=== PATIENT | female | born 1935 | race Caucasian/White ===

== ENCOUNTER 2018-08-05 09:32 | Inpatient (IN) | payer MEDICARE ==
[2018-08-05 10:08] LABS: Hemoglobin 10.1 g/dL (12.0-16.0); Mean Corpuscular HGB CONC 29.3 g/dL (32.0-36.0); Mean Corpuscular Volume 71.7 fL (78.0-98.0); Mean Platelet Volume 7.1 fL (7.4-10.4); Platelet Count 460 thou/uL (130-400); RBC Distribution Width 15.3 % (11.5-14.5); Red Blood Cell (RBC) Count 4.81 mill/uL (4.20-5.40); White Blood Cell (WBC) Count 39.1 thou/uL (4.8-10.8)
[2018-08-05 10:26] LABS: ALT (SGPT) 15 U/L (8-55); AST (SGOT) 33 U/L (5-34); Albumin 2.3 g/dL (3.4-4.8); Alkaline Phosphatase 139 U/L (40-150); Anion Gap 22 mmol/L (10-20); BUN (Urea Nitrogen) 28 mg/dL (9.8-20.1); Bilirubin, Total 0.6 mg/dL (0.2-1.2); Calc. Creatinine Clearance 0 mL/min (70-130); Calcium 7.8 mg/dL (7.8-10.44); Carbon Dioxide 12 mmol/L (23-31); Chloride 95 mmol/L (98-107); Estimated GFR-MDRD 69; Globulin 2.5 g/dL (2.4-3.5); Glucose 118 mg/dL (83-110); Potassium 4.4 mmol/L (3.5-5.1); Protein, Total 4.8 g/dL (6.0-8.3); Sodium 125 mmol/L (136-145)
--- NOTE | 2018-08-05 10:32 | CT ---
CT BRAIN: History: Level II stroke, fall yesterday. Patient reports weakness. Technique: Noncontrast enhanced CT images of the brain obtained. Brain and bone windows obtained. FINDINGS: There is mild cortical atrophy and deep white matter ischemic changes. No evidence of acute intracran ial masses, hemorrhages, strokes or contusions seen. IMPRESSION: Mild cortical atrophy and deep white matter ischemic changes. No acute intracranial abnormalities see n. Findings called to Dr. Queen at 9:51 a.m. on 08-05-18. Code CR POS: MELANIE
[2018-08-05 10:45] LABS: Band 28 % (5-11); Burr Cells MODERATE= 6-15 cells (100X) (0-1/hpf); Hypochromia MODERATE=16-30 cells (100X) (0-5/hpf); MDiff Complete? YES; Metamyelocyte 3 % (0-0); Microcytosis MODERATE=15-30 cells (100X) (0-5/hpf); Monocytes 6 % (0-10); Neutrophil 62 % (42-75); Platelet Morphology Comment Appears Increased; Polychromasia SLIGHT = 2-3 cells (100X) (0-2/hpf); Reactive Lymphocytes 1 % (0-10); Toxic Granulation SLIGHT; Vacuoles SLIGHT
[2018-08-05] MEDS ORDERED: Aspirin Chewable 81 MG TAB ONE (11:00)
[2018-08-05] MEDS ORDERED: cefTRIAXone\\ROCEPHIN 2 GM VIAL ONE (11:00)
[2018-08-05 11:02] LABS: CKMB 10.1 ng/mL (0-6.6)
--- NOTE | 2018-08-05 11:06 | RAD ---
CHEST 1 VIEW: Date: 08/05/18 HISTORY: Altered mental status. Slurred speech. Dyspnea. FINDINGS: No comparison. Cardiac silhouette is magnified by projection. Pulmonary vasculature upper limits of normal. Opacity at the left base has the appearance of atelectasis and pleural fluid. Mediastinum is midline with aor tic calcification. Right lung is well inflated. No evidence of pneumothorax. groundwater monitoring technician leads ov erlie the chest. IMPRESSION: 1. Left basilar atelectasis and left pleural fluid. Cause is not evident. Please consider continued radiographic follow-up. 2. Atherosclerosis. POS: [facility]
[2018-08-05 11:27] LABS: Bilirubin Small (Negative); Blood, Urine Negative (Negative); Clarity CLOUDY (Clear); Glucose, Urine (Dipstick) Negative (Negative); Leukocyte Small (Negative); Nitrite Negative (Negative); Protein, Urine (Dipstick) 30 mg/dL (Neg-Trace); Specific Gravity, Urine 1.027 (1.002-1.036)
[2018-08-05 11:33] LABS: Pathc Cast-AUWi Flag 11.92 (0-2.49); Yeast-AUWi Flag 47.1 (0-25.0)
[2018-08-05 11:43] LABS: Bacteria/HPF 1+ HPF (None Seen); Hyaline Casts/LPF 0-3 HYALINE CAST LPF (0-3 Hyaline); Manual Microscopic Reviewed? No Path Casts Seen; RBC/HPF None Seen HPF (0-3); Renal Epithelial None Seen HPF (0-3); Transitional Epithelial NONE SEEN HPF (0-3); Yeast-All Forms None Seen HPF (None Seen)
[2018-08-05] MEDS ORDERED: Azithromycin 500 MG VIAL ONE (12:33)
--- NOTE | 2018-08-05 14:12 | HP ---
PRIMARY CARE PHYSICIAN: Macy Rodgers MD REASON FOR ADMISSION: Acute encephalopathy due to sepsis, sepsis with acute organ dysfunction, pneumonia/urinary tract infection. HISTORY OF PRESENT ILLNESS: An 83-year-old female, who has underlying history of gastroesophageal reflux disease, dyslipidemia, anxiety, and depression, who lives at home by herself. She is able to do all her daily activities of life by herself as well as she drives. She went to mu-ism last Thursday and after that, the patient is gradually becoming sick. The patient's family member reports that on Thursday they noticed that she was very slow and lethargic, which was pretty much unusual, but she did not have any other complaints. She does have chronic intermittent urinary incontinence, but she did not have any classic UTI symptoms including dysuria, hematuria, or more frequency. She did not have any flu-like illness including myalgia, runny nose, sore throat. She did not have any chest pain, pleurisy, cough, but family member noticed that she was more short of breath lately. Her condition was day by day going down. She did not have any fever or chills at home. This morning, the patient fell down and she was not able to get out from the floor. She was extremely weak and fatigued and that is why paramedics was called and the patient was brought to the emergency room. The patient appeared altered and stroke alert was initially initiated. In the emergency room, the patient had routine blood test with CT of brain, which showed age-related cortical atrophy without any acute process and chest x-ray showed left basilar infiltration versus atelectasis. Routine blood test showed leukocytosis with left shift with bandemia, elevated troponin, and lactic acidosis as well as hyponatremia. The patient does not have any clue about what is going on, but family member including two daughters, who are power of research attorney present at bedside in the emergency room, who provided most of the history. The patient's family member also reports that they noticed slurred speech as well as some facial droop. She was having difficulty walking. Paramedics noticed that this patient was tachycardic, relatively hypotensive. In the emergency room, lowest blood pressure was in 80s one time that responded to IV fluid. The patient has received appropriate antibiotic therapy and subsequently we decided to admit to [facility] for close monitoring and further treatment. The patient's troponin was elevated, but EKG was nonspecific and the patient was not having any angina or chest pain. REVIEW OF SYSTEMS: CONSTITUTIONAL: Negative for weight loss or gain, ability to conduct usual activities. SKIN: Negative for rash, itching. EYES: Negative for double vision, pain. ENT/MOUTH: Negative for nose bleeding, neck stiffness, pain, tenderness. CARDIOVASCULAR: Negative for palpitations, dyspnea on exertion, orthopnea. RESPIRATORY: Negative for shortness of breath, wheezing, cough, hemoptysis, fever or night sweats. GASTROINTESTINAL: Negative for poor appetite, abdominal pain, heartburn, nausea, vomiting, constipation, or diarrhea. GENITOURINARY: Negative for urgency, frequency, dysuria, nocturia. MUSCULOSKELETAL: Negative for pain, swelling. NEUROLOGIC/PSYCHIATRIC: Negative for anxiety, depression. ALLERGY/IMMUNOLOGIC: Negative for skin rash, bleeding tendency. Please see my HPI for pertinent positive and negative. All other review of systems reviewed and negative except as mentioned in HPI. EMERGENCY ROOM COURSE: So far, the patient has received 2 L of fluid aspirin 324 mg, Rocephin, vancomycin and azithromycin. PAST MEDICAL HISTORY: Gastroesophageal reflux disease, dyslipidemia, diastolic dysfunction, urinary incontinence. PAST SURGICAL HISTORY: Cholecystectomy tonsillectomy. PAST PSYCHIATRIC HISTORY: Anxiety and depression. SOCIAL HISTORY: The patient is , lives at home by herself. She is able to ambulate by herself. She is using cane. She is still driving. She does not have any tobacco, alcohol, or illicit drug abuse. FAMILY HISTORY: No family history of coronary artery disease, stroke, or cancer. ALLERGIES: SULFA DRUGS. CURRENT HOME MEDICATION: 1. Plavix 75 mg daily. 2. Ranitidine 150 mg b.i.d. 3. Lovastatin 20 mg at bedtime. 4. Zoloft 50 mg p.o. daily. PHYSICAL EXAMINATION: VITAL SIGNS: On arrival, blood pressure 109/64, pulse 120, respiratory rate 22, temperature 97.8, and saturation 97% on room air. Weight 63.5 kg. GENERAL: The patient is currently alert, awake, appears weak. No obvious acute distress. HEENT: Head; normocephalic, atraumatic. Eyes; pupils round, reactive to light. Extraocular muscle intact. ENT; oropharynx within normal limits. Moist mucous membranes. No oral lesion. No pharyngeal erythema. No exudate. NECK: Supple. No JVD. No thyromegaly. No carotid bruit. LUNGS: Air entry reduced at left base, few basal rales noted. No accessory muscles of respiration in use. CARDIAC: S1, S2, regular tachycardia. No gross murmur elicited. ABDOMEN: Soft bowel sounds present. Nontender. Nondistended. No organomegaly. No mass. No suprapubic tenderness. BACK: Unremarkable. No CVA tenderness. EXTREMITIES: Upper extremities; passive movement of all joints are normal. Lower extremities; bilateral lower extremity pitting edema stress noted lower leg. Good distal pulsation. SKIN: No skin rash. HEMATOLOGICAL SYSTEM: No lymphadenopathy. NEUROLOGIC: Currently patient's speech is normal. Motor 5 x 5 in all four limbs. Sensation intact bilaterally. Reflex is symmetrical bilaterally. No gross focal neurological deficit noted. PSYCHIATRIC: Normal affect. SIGNIFICANT LABORATORY DATA: EKG showing sinus tachycardia, left axis deviation, LVH, nonspecific ST-T changes. CT of brain based on my review; mild cortical atrophy and deep white matter ischemic changes without any acute process. Chest x-ray based on my review, left basilar atelectasis and left pleural fluid atherosclerosis. CBC; WBC 39.1, hemoglobin 10.1, MCV 71.7, platelet 460 with bandemia. BMP; sodium 125, potassium 4.4, chloride 95, carbon dioxide 12, anion gap 22, BUN 28, creatinine 0.79, glucose 118, and calcium 7.8. Lactic acid 8.1. LFT; AST 33, ALT 15, alkaline phosphatase 139, albumin 2.3. CK-MB 10.1, troponin 0.686. Urinalysis, leukocyte esterase small, and bacteria 1+. ASSESSMENT AND PLAN: 1. Acute encephalopathy due to metabolic etiology as well as due to sepsis. Currently, the patient's neuro examination is nonfocal. Her CT of brain is not showing any acute process. Her altered mental status can be explained by hyponatremia and metabolic acidosis, elevated troponin, and sepsis. 2. Sepsis with acute organ dysfunction. This patient has a clinically sepsis with encephalopathy, lactic acidosis and elevated troponin in this patient with sepsis with acute organ dysfunction as well as she has a sepsis associated hypotension. The patient will be given broad-spectrum antibiotic therapy and she will be given gentle IV fluid. 3. Left basilar consolidation. The patient has atelectasis and pleural effusion suspecting pneumonia clinically. Influenza screen is negative. The patient will be given broad-spectrum antibiotic therapy with Rocephin, Levaquin, and vancomycin. The patient will be admitted to IM. Pulmonary group will see this patient. We will provide DuoNeb therapy q.6 hourly on p.r.n. basis and closely monitor for any hemodynamic compromise. 4. Hyponatremia. The patient has slight edema on her lower extremity. We will check BNP, TSH, random cortisol, urine and plasma osmolality, and we will monitor sodium level. 5. Elevated anion gap metabolic acidosis likely due to underlying sepsis. The patient will be given gentle IV fluid and we will repeat BMP tomorrow. 6. Lactic acidosis, likely due to sepsis and we will repeat lactic acid later on today as well as tomorrow. 7. Demand ischemia of myocardium. The patient does not have any chest pain. EKG is nonspecific, most likely related to demand ischemia of myocardium. The patient will be monitored on telemetry floor as well as the patient will be given aspirin 325 mg p.o. daily. We will check lipid profile tomorrow. We will obtain echocardiography to assess EF and structural abnormality and Cardiology will be consulted. 8. Hypoalbuminemia, likely due to malnutrition, mild. The patient will be given nutritional supplement. 9. Microcytic anemia. We will check ferritin, iron, TIBC, and stool for guaiac. 10. Ferrous sulfate 325 mg p.o. daily will be started. 11. Urinary tract infection. Urine culture sent. Follow up on culture result. Continue Rocephin, Levaquin, and vancomycin. 12. Dyslipidemia. Check lipid profile and continue the patient's home medication lovastatin daily. 13. Gastroesophageal reflux disease. We will continue Pepcid 20 mg b.i.d. 14. Anxiety and depression. We will continue Zoloft 50 mg daily. 15. Deep venous thrombosis prophylaxis. Lovenox 40 mg subcu daily. 16. GI prophylaxis, Pepcid 20 mg p.o. b.i.d. CODE STATUS: The patient is full code. The patient daughter is surrogate decision maker. DISPOSITION PLAN: Based on clinical course. She may need PT/OT, and rehab evaluation during this admission. Plan of care was extensively discussed with the patient and family member at bedside in the emergency room. Job ID: [id number]
[2018-08-05] MEDS ORDERED: Ondansetron PF 4 MG/2 ML Vial IVP PRN ×2 (14:56→15:17)
[2018-08-05] MEDS ORDERED: Ondansetron ODT 4 MG TAB SL PRN (14:56)
[2018-08-05] MEDS ORDERED: Zolpidem Tartrate 5 MG TAB PO PRN (15:17)
[2018-08-05] MEDS ORDERED: Bisacodyl 5 MG TAB PO PRN (15:17)
[2018-08-05] MEDS ORDERED: HYDROcodone/Acetaminophen 5/325 mg Tablet PO PRN (15:17)
[2018-08-05] MEDS ORDERED: Loratadine 10 MG TAB PO PRN (15:17)
[2018-08-05] MEDS ORDERED: Sodium Chloride 0.65% Nasal 44 ML BOT EA NARE PRN (15:17)
[2018-08-05] MEDS ORDERED: hydrALAZINE 20 MG/ML VIAL SLOW IVP PRN (15:17)
[2018-08-05] MEDS ORDERED: Loperamide HCl 2 MG CAP PO PRN (15:17)
[2018-08-05] MEDS ORDERED: Bisacodyl 10 MG SUPP PR PRN (15:17)
[2018-08-05] MEDS ORDERED: Ondansetron ODT 4 MG TAB PO PRN (15:17)
[2018-08-05] MEDS ORDERED: Diabetic Tussin 200 MG/10 ML UDCUP PO PRN (15:17)
[2018-08-05] MEDS ORDERED: Acetaminophen 325 MG TAB PO PRN (15:17)
[2018-08-05] MEDS ORDERED: Artificial Tear Sol 15 ML BOT EA EYE PRN (15:17)
[2018-08-05] MEDS ORDERED: Senokot S 8.6-50 MG TAB PO PRN (15:17)
[2018-08-05] MEDS ORDERED: Calcium Carbonate 500 MG ChewTAB PO PRN (15:17)
[2018-08-05] MEDS ORDERED: Eucerin (Mineral Oil/Petrolatum,White) 30 gm Jar TOP PRN (15:17)
[2018-08-05] MEDS ORDERED: Cepastat Lozenges 1 LOZ PO PRN (15:17)
[2018-08-05 16:10] LABS: Osmolality, Urine 749 mOsm/kg (300-900)
[2018-08-05 16:14] LABS: Sodium, Urine Less than 20 mmol/L (Not Available)
[2018-08-05 16:15] LABS: Iron 13 ug/dL (50-170); Iron Binding Capacity, Total 129 mcg/dL (265-497); Magnesium 1.5 mg/dL (1.6-2.6)
[2018-08-05] MEDS: Sodium Chloride 0.9% 1,000 ML IV SCH (16:15)
[2018-08-05 16:16] LABS: Lactic Acid 4.3 mmol/L (0.5-2.2); Phosphorus 2.8 mg/dL (2.3-4.7)
[2018-08-05 16:25] LABS: Thyroid Stimulating Hormone 0.7981 uIU/mL (0.35-4.94)
[2018-08-05] MEDS: Hydrocortisone Sod Succ/PF 100 mg/2 ml Vial IVP SCH ×2 (17:56→23:51)
[2018-08-05 19:29] LABS: CKMB 13.2 ng/mL (0-6.6)
[2018-08-05] MEDS: Famotidine 20 MG TAB PO SCH (20:55)
[2018-08-05] MEDS: Atorvastatin Calcium 10 MG TAB PO SCH (20:55)
--- NOTE | 2018-08-05 22:47 | CON ---
DATE OF CONSULTATION: 08/05/2018 HISTORY OF PRESENT ILLNESS: Dee Monroy is an 83-year-old female from [place], who apparently has had a gradual decline in health over the last several days. She particularly saw her primary care physicians and lab workup was done, unclear what transpired. She has felt weak. She just celebrated her birthday, in which she turned 83. She has never smoked. No prior history of TB, pneumonia, or bronchial asthma. Two daughters at the bedside, who stated that the patient has been falling off and on now for a period of time, weak, she has lost about 20 pounds. Her blood pressure was low when she arrived. The oxygen saturation was 97% on room air, pulse was 120. She is 63 kg. X-ray of her chest in the ER showed left-sided infiltrate. She was transported from [place] to [facility] in an ambulance. She surprisingly denies any cough, fever, or chills. Except for weakness, she offers no other complaints at this stage. PAST MEDICAL HISTORY: for some unknown GI problems. History of high cholesterol. PAST SURGICAL HISTORY: Cholecystectomy, tonsils. She has peripheral vascular disease. Ultrasound of the neck was done. MEDICATIONS: Includes; 1. Plavix 75. 2. Lovastatin 20. 3. Ranitidine 150. 4. Zoloft 50. 5. Aspirin 81. ALLERGIES: SULFA. SOCIAL AND FAMILY HISTORY: Otherwise unremarkable. [place]. Alcohol, none. Tobacco none. PHYSICAL EXAMINATION: GENERAL: Awake, alert, and responsive. VITAL SIGNS: Blood pressure 101/50 pulse 80, temperature 98. CHEST: Decreased breath sounds. Minimal crackles. CARDIAC: Normal S1, S2. No gallops. ABDOMEN: No masses. LABORATORY DATA AND DIAGNOSTIC STUDIES: White count is 39,000. H and H of 10 and 34, platelet count is 460. Urine shows 7 to 10 wbc's, 1+ bacteriuria. X-rays left-sided infiltrate. Sodium is 125, she is on normal saline at 150 an hour. Platelet count is 460. She has toxic granulation in the peripheral smear. Influenza titer was negative. CT brain was negative. IMPRESSION: Hypertension, bandemia, sepsis, urinary tract versus left-sided pneumonia, nonsmoker, advanced age, marked weight loss. Cortisol is being ordered to check for adrenal insufficiency, sepsis protocol antibiotics initiated including antioxidant treatment with hydrocortisone, vitamin C, and thiamine. Pressors as needed. Pulmonary Critical Care will follow while in the MICU. Consultation note, 70 minutes, 50% direct patient care. Job ID: [id number]
[2018-08-05] MEDS ORDERED: Vancomycin HCl 1 GM in Premix Bag 1 BAG IVPB SCH (23:30)
[2018-08-06 05:38] LABS: Lactic Acid 2.3 mmol/L (0.5-2.2)
[2018-08-06] MEDS: Hydrocortisone Sod Succ/PF 100 mg/2 ml Vial IVP SCH (05:39)
[2018-08-06] MEDS: Sodium Chloride 0.9% 1,000 ML IV SCH ×2 (05:39→23:42)
[2018-08-06 05:43] LABS: ALT (SGPT) 22 U/L (8-55); AST (SGOT) 48 U/L (5-34); Albumin 2.2 g/dL (3.4-4.8); Alkaline Phosphatase 96 U/L (40-150); Anion Gap 14 mmol/L (10-20); BUN (Urea Nitrogen) 25 mg/dL (9.8-20.1); Bilirubin, Total 0.5 mg/dL (0.2-1.2); Calc. Creatinine Clearance 75 mL/min (70-130); Calcium 7.5 mg/dL (7.8-10.44); Carbon Dioxide 17 mmol/L (23-31); Cardiac Risk 4.4 (Less than 4.5); Chloride 100 mmol/L (98-107); Cholesterol 40 mg/dl (< 200 Desired); Estimated GFR-MDRD Greater than 90; Globulin 2.6 g/dL (2.4-3.5); Glucose 76 mg/dL (83-110); HDL Cholesterol 9 mg/dL (>60 Neg Risk); Potassium 4.2 mmol/L (3.5-5.1); Protein, Total 4.8 g/dL (6.0-8.3); Sodium 127 mmol/L (136-145); Triglycerides 158 mg/dL (Less than 150)
[2018-08-06 05:57] LABS: Hemoglobin 9.8 g/dL (12.0-16.0); Mean Corpuscular HGB CONC 32.4 g/dL (32.0-36.0); Mean Corpuscular Hemoglobin 23.8 pg (27.0-31.0); Mean Corpuscular Volume 73.4 fL (78.0-98.0); Mean Platelet Volume 7.6 fL (7.4-10.4); Platelet Count 399 thou/uL (130-400); RBC Distribution Width 15.6 % (11.5-14.5); Red Blood Cell (RBC) Count 4.11 mill/uL (4.20-5.40); White Blood Cell (WBC) Count 19.8 thou/uL (4.8-10.8)
[2018-08-06 06:11] LABS: Band 37 % (5-11); Eosinophils 1 % (0-10); Lymphocytes 3 % (21-51); MDiff Complete? YES; Metamyelocyte 2 % (0-0); Monocytes 5 % (0-10); Neutrophil 52 % (42-75)
[2018-08-06] MEDS ORDERED: Ferrous Sulfate 325 MG TAB PO SCH (08:00)
[2018-08-06] MEDS ORDERED: Furosemide 20 MG/2 ML VIAL SLOW IVP SCH (08:30)
--- NOTE | 2018-08-06 08:52 | PRG ---
DATE OF SERVICE: 08/06/2018 SUBJECTIVE: This morning, she is awake, alert, and responsive. OBJECTIVE: VITAL SIGNS: Blood pressure is resolved, 153/92, saturations 95% on 2 L, temperature 97, pulse 132, and respirations 13. GENERAL: She complains of difficulty breathing this morning. I's and O's have been difficult to assess. CHEST: Decreased breath sounds at left base. There is no wheezing. CARDIAC: Sinus tach. ABDOMEN: Soft. LABORATORY DATA: White count of 90,000, still a big left shift with 52 neutrophils, 37 bands. Platelet count is normal. Sodium is 127. Lactic acid is down to 2.3. Liver function is basically unremarkable. Albumin is low at 2.2. Thyroid function is normal. Cortisol level is 43. IMAGING DATA: X-ray shows worsening left-sided infiltrate, possibly small pleural effusion. PLAN: Awaiting input from Cardiology, echocardiogram. It is possible that she may be slightly fluid overloaded. Continue antibiotics and steroids. Cortisol level is much improved. Decrease the steroids since this is not relative adrenal insufficiency. Continue antibiotics, thiamine, and vitamin C. Job ID: [id number]
--- NOTE | 2018-08-06 08:55 | RAD ---
CHEST 1 VIEW: Date: 08/06/18 COMPARISON: 08/05/18. HISTORY: Pneumonia. FINDINGS: Persistent opacification of left hemithorax which obscures the left hemidiaphragm and descending thor acic aorta. Overall, stable configuration of the cardiac silhouette. Stable aeration of the right camila g. No pneumothorax. IMPRESSION: Opacification of left hemithorax, with evidence for left lower lobe infiltrate. Continued surveillanc e is recommended. POS: MELANIE
[2018-08-06] MEDS ORDERED: Saccharomyces boulardii 250 MG CAP PO SCH (09:00)
[2018-08-06] MEDS ORDERED: Aspirin 81 mg Enteric Coated Tablet PO SCH (09:00)
[2018-08-06] MEDS ORDERED: Clopidogrel Bisulfate 75 MG TAB PO SCH (09:00)
[2018-08-06] MEDS: Famotidine 20 MG TAB PO SCH (09:32)
[2018-08-06] MEDS: Enoxaparin Sodium 40 MG/0.4 ML SYRINGE SC SCH (09:32)
--- NOTE | 2018-08-06 09:58 | PDOC.PN ---
- Subjective Encounter Start Date: 08/06/18 Encounter Start Time: 09:00 -: old records requested/rev this morning pt has dyspnea, she has tachycardia, no fever, her BP has improved - Objective Resuscitation Status - Order Detail: 08/05/18 13:01 Resuscitation Status Routine Resuscitation Status: FULL: Full Resuscitation MAR Reviewed: Yes Vital Signs & Weight: Vital Signs (12 hours) Temp Pulse Resp BP Pulse Ox 08/06/18 08:45 97 08/06/18 08:44 128 H 20 97 08/06/18 07:51 95 08/06/18 07:27 97.6 F 132 H 30 H 153/92 H 95 08/06/18 04:00 97.0 F L 125 H 18 127/62 95 08/06/18 00:00 97.3 F L 122 H 20 140/64 98 Weight Weight 155 lb 14.4 oz I&O: 08/05/18 08/06/18 08/07/18 06:59 06:59 06:59 Intake Total 1760 Balance 1760 Result Diagrams: 08/06/18 05:15 08/06/18 05:15 Radiology Reviewed by me: Yes (chest xray reviewed) EKG Reviewed by me: Yes (svt vs sinus tachycardia) Phys Exam - Physical Examination Constitutional: NAD HEENT: PERRLA, moist MMs, sclera anicteric Neck: no JVD, supple Respiratory: no wheezing, no rhonchi left base rales and reduced air entry Cardiovascular: RRR, no significant murmur, no rub tachycardia Gastrointestinal: soft, non-tender, no distention, positive bowel sounds Musculoskeletal: pulses present, edema present Neurological: non-focal, normal sensation Lymphatic: no nodes Psychiatric: normal affect Skin: no rash, normal turgor Dx/Plan (1) Community acquired bacterial pneumonia Code(s): J15.9 - UNSPECIFIED BACTERIAL PNEUMONIA Status: Acute (2) Demand ischemia of myocardium Code(s): I24.8 - OTHER FORMS OF ACUTE ISCHEMIC HEART DISEASE Status: Acute (3) Elevated brain natriuretic peptide (BNP) level Code(s): R79.89 - OTHER SPECIFIED ABNORMAL FINDINGS OF BLOOD CHEMISTRY Status : Acute (4) Encephalopathy in sepsis Code(s): G93.41 - METABOLIC ENCEPHALOPATHY Status: Acute Comment: as well as due to metabolic factors (5) High anion gap metabolic acidosis Code(s): E87.2 - ACIDOSIS Status: Acute (6) Hypomagnesemia Code(s): E83.42 - HYPOMAGNESEMIA Status: Acute (7) Hyponatremia Code(s): E87.1 - HYPO-OSMOLALITY AND HYPONATREMIA Status: Acute (8) Lactic acidosis Code(s): E87.2 - ACIDOSIS Status: Acute (9) Sepsis associated hypotension Code(s): A41.9 - SEPSIS, UNSPECIFIED ORGANISM; I95.9 - HYPOTENSION, UNSPECIFIED Status: Acute (10) Sepsis with acute organ dysfunction Code(s): A41.9 - SEPSIS, UNSPECIFIED ORGANISM; R65.20 - SEVERE SEPSIS WITHOUT SEPTIC SHOCK Status: Acute (11) UTI (urinary tract infection) Status: Acute (12) Anemia of chronic disease Code(s): D63.8 - ANEMIA IN OTHER CHRONIC DISEASES CLASSIFIED ELSEWHERE Status : Chronic Comment: with microcytosis (13) Anxiety and depression Code(s): F41.9 - ANXIETY DISORDER, UNSPECIFIED; F32.9 - MAJOR DEPRESSIVE DISORDER, SINGLE EPISODE, UNSPECIFIED Status: Chronic (14) Dyslipidemia Code(s): E78.5 - HYPERLIPIDEMIA, UNSPECIFIED Status: Chronic - Plan cont current plan of care, plan discussed w/ family, continue antibiotics, respiratory therapy * given her worsening of bandemia and left side opacification, associated parapneumonic effusion is also in differential, today echo done and await cardiology input, she may have associated diastolic heart failure and will DC IVF and agree with lasix * her tachycardia vs SVT needs to be addressed, will wait cardiology to see and echo result to decide further plan * follow culture * repeat labs * continue current rocephin, levaquin and vancomycin * repeat labs tomorrow. Review of Systems - Review of Systems Constitutional: weakness, malaise. negative: fever, chills, sweats, other Eyes: negative: Pain, Vision Change, Conjunctivae Inflammation, Eyelid Inflammation, Redness, Other ENT: negative: Ear Pain, Ear Discharge, Nose Pain, Nose Discharge, Nose Congestion, Mouth Pain, Mouth Swelling, Throat Pain, Throat Swelling, Other Respiratory: Shortness of Breath, SOB with Excertion. negative: Cough, Dry, Hemoptysis, Pleuritic Pain, Sputum, Wheezing Cardiovascular: edema. negative: chest pain, palpitations, orthopnea, paroxysmal nocturnal dyspnea, light headedness, other Gastrointestinal: negative: Nausea, Vomiting, Abdominal Pain, Diarrhea, Constipation, Melena, Hematochezia, Other Genitourinary: negative: Dysuria, Frequency, Incontinence, Hematuria, Retention , Other Musculoskeletal: negative: Neck Pain, Shoulder Pain, Arm Pain, Back Pain, Hand Pain, Leg Pain, Foot Pain, Other Skin: negative: Rash, Lesions, Steffen, Bruising, Other - Medications/Allergies Allergies/Adverse Reactions: Allergies Allergy/AdvReac Type Severity Reaction Status Date / Time Sulfa (Sulfonamide Allergy Verified 08/05/18 15:43 Antibiotics) Medications: Current Medications Acetaminophen (Tylenol) 650 mg PO Q4H PRN PRN Reason: Headache/Fever/Mild Pain (1-3) Hydrocodone Bitart/Acetaminophen ([place] 5/325) 1 tab PO Q4H PRN PRN Reason: Moderate Pain (4-6) Albuterol/Ipratropium (Duoneb) 3 ml NEB [id number] PRN PRN Reason: SOB &/or Wheezing Albuterol/Ipratropium (Duoneb) 3 ml NEB [id number] [facility] Artificial Tears (Tears Renewed 15ml Bottle) 2 drop EA EYE PRN PRN PRN Reason: Dry Eyes Aspirin (Ecotrin) 81 mg PO DAILY [facility] Last Admin: 08/06/18 09:33 Dose: 81 mg Atorvastatin Calcium (Lipitor) 10 mg PO HS [facility] Last Admin: 08/05/18 20:55 Dose: 10 mg Bisacodyl (Dulcolax) 10 mg PO DAILYPRN PRN PRN Reason: Constipation Bisacodyl (Dulcolax) 10 mg [place] DAILYPRN PRN PRN Reason: Constipation Calcium Carbonate (Tums) 1,000 mg PO Q4H PRN PRN Reason: Heartburn or Indigestion Clopidogrel Bisulfate (Plavix) 75 mg PO DAILY [facility] Last Admin: 08/06/18 09:32 Dose: 75 mg Enoxaparin Sodium (Lovenox) 40 mg SC 0900 [facility] Last Admin: 08/06/18 09:32 Dose: 40 mg Famotidine (Pepcid) 20 mg PO BID [facility] Last Admin: 08/06/18 09:32 Dose: 20 mg Ferrous Sulfate (Feosol) 325 mg PO [facility] Last Admin: 08/06/18 09:32 Dose: 325 mg Furosemide (Lasix) 20 mg SLOW IVP NOW [facility] Stop: 08/06/18 10:30 Last Admin: 08/06/18 09:32 Dose: 20 mg Guaifenesin (Robitussin Sf) 200 mg PO Q4H PRN PRN Reason: Cough Hydralazine HCl (Apresoline) 10 mg SLOW IVP Q4H PRN PRN Reason: SBP > 180 and HR < 70 Ceftriaxone Sodium 1 gm/ (Sodium Chloride) 100 mls @ 200 mls/hr IVPB Q24HR [facility] Levofloxacin 500 mg/ Device 100 mls @ 100 mls/hr IVPB Q24HR [facility] Last Admin: 08/05/18 16:12 Dose: 100 mls Thiamine HCl 200 mg/ Sodium (Chloride) 52 mls @ 100 mls/hr IVPB Q12HR [facility] Stop: 08/09/18 21:01 Last Admin: 08/06/18 09:35 Dose: 52 mls Ascorbic Acid 1,500 mg/ Sodium (Chloride) 53 mls @ 100 mls/hr IVPB Q6HR [facility] Stop: 08/09/18 18:01 Last Admin: 08/06/18 05:39 Dose: 53 mls Vancomycin HCl 1 gm/ Device 200 mls @ 200 mls/hr IVPB 1200 [facility] Loperamide HCl (Imodium) 2 mg PO PRN PRN PRN Reason: Diarrhea/Loose Stools Loratadine (Claritin) 10 mg PO DAILYPRN PRN PRN Reason: Sinus Symptoms Mineral Oil/White Petrolatum (Eucerin Cream) 0 gm TOP BIDPRN PRN PRN Reason: Dry Skin Miscellaneous Medication (Pharmacy To Dose) 1 each IVPB PRN PRN PRN Reason: Pharmacy to dose Ondansetron HCl (Zofran Odt) 4 mg PO Q6H PRN PRN Reason: Nausea/Vomiting Ondansetron HCl (Zofran) 4 mg IVP Q6H PRN PRN Reason: Nausea/Vomiting Saccharomyces Boulardii (Florastor) 250 mg PO DAILY [facility] Last Admin: 08/06/18 09:32 Dose: 250 mg Senna/Docusate Sodium (Senokot S) 2 tab PO BID PRN PRN Reason: Constipation Sertraline HCl (Zoloft) 50 mg PO DAILY [facility] Last Admin: 08/06/18 09:32 Dose: 50 mg Sodium Chloride (Flush - Normal Saline) 10 ml IVF Q12HR [facility] Last Admin: 08/06/18 09:33 Dose: 10 ml Sodium Chloride (Flush - Normal Saline) 10 ml IVF PRN PRN PRN Reason: Saline Flush Sodium Chloride ([place] Nasal [place] 0.65%) 0 ml EA NARE QIDPRN PRN PRN Reason: Nasal Congestion Throat Lozenges (Cepastat Lozenges) 1 kelvin PO Q2H PRN PRN Reason: Sore Throat Zolpidem Tartrate (Ambien) 5 mg PO HSPRN PRN PRN Reason: Insomnia
[2018-08-06] MEDS ORDERED: Iopamidol 370 76% 100 ML VIAL ONE (10:08)
[2018-08-06] MEDS ORDERED: Magnesium Sulfate 3 GM in Sodium Chloride 0.9% 100 ML IVPB SCH (10:15)
[2018-08-06] MEDS ORDERED: Vancomycin HCl 1 GM in Premix Bag 1 BAG IVPB SCH (12:00)
[2018-08-06] MEDS ORDERED: cefTRIAXone\\ROCEPHIN 1 GM in Sodium Chloride 0.9% 100 ML IVPB SCH (12:00)
[2018-08-06] MEDS: Piperacillin/Tazobactam 3.375 GM in Sodium Chloride 0.9% 100 ML IVPB SCH ×2 (13:04→17:24)
--- NOTE | 2018-08-06 13:28 | RAD ---
FRONTAL VIEW ABDOMEN KUB: INDICATIONS: Cellulitis of abdominal wall. FINDINGS: Two views of the abdomen and pelvis are provided, which reveal ill-defined air density overlying the left abdomen. There is air density extending into the inferior left chest, as well. The bowel gas pattern is nonspecific. IMPRESSION: Ill-defined air density overlying the left chest and abdomen. This could relate to a component of so ft tissue gas within the body wall. Recommend dedicated CT of the abdomen and pelvis for further colt luation. CODE T POS: MELANIE
--- NOTE | 2018-08-06 14:50 | CON ---
DATE OF CONSULTATION: HISTORY OF PRESENT ILLNESS: An 83-year-old woman with a history of cerebrovascular disease, who presented with altered mental status and weakness. The patient has a history of carotid artery disease. The patient for the past few days has become progressively weak. She has had several falls. The patient presented with marked weakness to the emergency room yesterday. She was apparently lethargic and apparently having slurred speech. The patient denied having any chest discomfort. PAST MEDICAL HISTORY: 1. Cerebrovascular disease. 2. Dyslipidemia. 3. Glaucoma. 4. Depression. PAST SURGICAL HISTORY: Cholecystectomy and tonsillectomy. SOCIAL HISTORY: Nonsmoker. MEDICATIONS: 1. Plavix 75 daily. 2. Zantac 150 b.i.d. 3. Lovastatin 20 daily. 4. Zoloft 50 at bedtime. FAMILY HISTORY: No strong family history of heart disease. ALLERGIES: SULFA DRUGS. REVIEW OF SYSTEMS: Ten point system otherwise unremarkable. PHYSICAL EXAMINATION: GENERAL: Ill-appearing woman, in mild distress. VITAL SIGNS: Blood pressure was 153/92. NECK: Showed no jugular venous distention. LUNGS: There are crackles throughout both lung maddox. HEART: Regular rate and rhythm. Normal S1 and S2. Tachycardic. ABDOMEN: Nondistended. EXTREMITIES: Show trace edema. Vascular radial pulse 2+. LABORATORY: White blood cell count was 19.8, hemoglobin 9.8, hematocrit 30.2, and platelets were 399. Sodium was 127, potassium 4.2, chloride 100, bicarbonate 17 , BUN 29, creatinine 0.61. Her troponin was 0.205. DIAGNOSTIC DATA: Her EKG revealed her to have sinus tachycardia, otherwise normal ECG. IMPRESSION: 1. Sepsis, probable pneumonia. 2. Indeterminate troponin level. 3. Cerebrovascular disease. 4. Dyslipidemia. 5. Depression. This patient presents with pneumonia. She had minimally elevated troponin level. She may have rhabdomyolysis with her increased CPK-MB level. The patient has been actively hydrated and has been treated with IV antibiotics. We will check the patient's echocardiogram. We would recommend the patient continue on aspirin and Plavix. We will continue on lipid-lowering medication. We will follow this patient with you through her hospitalization. Job ID: [id number] [facility]
--- NOTE | 2018-08-06 14:57 | RAD ---
FRONTAL VIEW CHEST: COMPARISON: 08/06/2018. CLINICAL INDICATION: Central line placement. FINDINGS: There is a right-sided subclavian venous catheter tip overlying the expected region of the right atri um. No postprocedural pneumothorax of significance is seen. Persistent pleural-based density with a djacent parenchymal density of the left hemithorax. There is mild right basilar patchy density. Car diac silhouette and pulmonary vasculature are prominent. IMPRESSION: 1. Placement of right central line without a postprocedural pneumothorax. 2. Redemonstration of prominent volume left pleural effusion with adjacent parenchymal density which may relate to edema from congestive heart failure. Recommend continued followup. POS: [facility]
[2018-08-06] MEDS ORDERED: Rocuronium Bromide 10 MG/ML (10ML VIAL) ONE (16:06)
[2018-08-06] MEDS ORDERED: ePHEDrine/0.9% NaCl/PF SYRINGE 50 mg/10 ml ONE (16:06)
[2018-08-06] MEDS ORDERED: PHENYLEPHRINE-NS 100 MCG/ML 10 ML SYRINGE ONE ×2 (16:06→21:38)
[2018-08-06] MEDS ORDERED: Succinylcholine Chloride 20 MG/ML 10 ml SYRINGE FS ONE (16:06)
--- NOTE | 2018-08-06 17:43 | CT ---
CHEST CT WITH CONTRAST ABDOMEN CT WITH CONTRAST PELVIC CT WITH CONTRAST 08/06/18 HISTORY: Retroperitoneal air/soft tissue gas. COMPARISON: None. CORRELATION: One view abdomen 08/06/18. FINDINGS: CHEST CT: There is evidence of free air within the mediastinum. There is no evidence of an abnormal fluid colle ction. There is no evidence of mass or lymphadenopathy. No significant pericardial fluid. The thoraci c and abdominal aorta have an overall normal caliber. No periaortic fat stranding. There is air track ing along the descending thoracic aorta. There is air in the anterior mediastinum, tracking into the base of the neck. There are bilateral pleural effusions with adjacent consolidation due to atelectas is, pneumonia, or aspiration. There are small locules of air which appear to be within the pleural ba se bilaterally. Small pneumothoraces cannot be excluded. There is air in the posterior and lateral le ft hemithorax, specifically in the subcutaneous fat and soft tissues. Air tracks down into the abdome n. Refer to separate abdomen report for further detail. Trachea and central bronchi are patent. ABDOMEN CT: The liver, spleen, pancreas, and adrenal glands have appropriate enhancement. Gallbladder is surgical ly absent. Portal vein is patent. Symmetric enhancement of the kidneys. No obstructive uropathy. Ther e is no mesenteric mass, lymphadenopathy, or significant free fluid. There is left retroperitoneal ai r. Air tracks down into the left hemipelvis. Air also tracks anterior to the left kidney as noted in the left prerenal space. Air tracks across midline and is noted adjacent to the IVC and in Harris's pouch. There is no evidence of bowel obstruction or perforation. There is mucosal thickening and str anding of the fat adjacent to the sigmoid colon. There is evidence of adjacent retroperitoneal air. Of note, contrast also opacifies the thoracic esophagus. There is no evidence of a leak along the co urse of the thoracic esophagus. CT PELVIS: There is left retroperitoneal air along the left iliacus muscle and psoas muscle. There is no pelvic mass, lymphadenopathy, or free fluid. The uterus and adnexal structures are unremarkable. No lytic or blastic lesions in the osseous structures. IMPRESSION: 1. There is extensive evidence of predominantly retroperitoneal air. There does appear to be bowel wa ll thickening of the sigmoid colon. The distribution of air is atypical for a perforated colonic dive rticulum. However, in the absence of an etiology, the possibility of a source associated with the sig moid colon cannot be excluded. General surgical consultation is recommended. Results of the study discussed with Stephen, patient's nurse 4:46 p.m., 08/06/18. Code FEDERICO POS: MELANIE
--- NOTE | 2018-08-06 19:07 | HP ---
HISTORY OF PRESENT ILLNESS: Dee Monroy is an 83-year-old female lives in [facility] independently. She ambulates independently. She drives. She is mentally alert. 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 Her family is with her. She was admitted at 1:00 p.m. on 08/05/2018 for sepsis, encephalopathy, probable pneumonia. She had an infiltrate in her left lung. In the hospital, she has noted to have a severe leukocytosis, white count of 39,000 with a left shift, 28% bands; today is 19,800, 52% bands. She has received Levaquin, vancomycin, and Zosyn. Dr. Nima Georges, Cardiology has seen her. Echocardiogram reveals mild diastolic dysfunction, 60% ejection fraction. Dr. Akers has seen her for the infiltrate, left lung. I was asked to put a central line due to poor IV access, which I will placed. Chest x-ray revealed soft tissue gas, left chest wall. She underwent a CAT scan of chest, abdomen, and pelvis after the nurse noted redness, edema in her left flank. CAT scan of the abdomen and pelvis revealed soft tissue gas in the mediastinum, left chest wall, abundant gas in the retroperitoneum, in the sigmoid colon with sigmoid colon thickening. She had gas in soft tissues of the left flank with edema. ALLERGIES: SULFA. SOCIAL HISTORY: Tobacco, none. Alcohol, none. MEDICATIONS: At home; 1. Sertraline. 2. Ranitidine. 3. Lovastatin. 4. Plavix. 5. Aspirin. PAST SURGICAL HISTORY: Cholecystectomy and tonsillectomy. PAST MEDICAL HISTORY: Noncontributory. She reports having some carotid artery disease with no intervention has been performed. PHYSICAL EXAMINATION: VITAL SIGNS: Height 5 foot and 3, 155 pounds, 27 BMI. Temperature 98.1, pulse 122, respiratory rate 20, and blood pressure 140/87. LUNGS: Clear to auscultation. CARDIAC: Sinus tachycardia. ABDOMEN: Soft, tenderness, guarding, left lower quadrant. She has edema and induration, left lateral abdominal wall and left posterior back up towards the rib cage. LABORATORY DATA: White count 19,000 down from 39,000 yesterday. Sodium 127, BUN 25, and creatinine 0.61. CK-MB 13.2, troponin 0.205. Dr. Georges has seen her and believes this is due to sepsis, not a cardiac event. ASSESSMENT AND PLAN: 1. Sepsis, diverticulitis related. She reports having had a colonoscopy many years ago, noting diverticulitis. She had polyps removed during that time. She has not had a colonoscopy more than 10 years. I have talked to the patient, the family and recommend laparotomy and incision and drainage of the left flank, soft tissue infection. Risks of infection, bleeding, reoperation, likelihood of colon resection, colostomy explained. She will be on the ventilator postoperatively. Risks and benefits of the procedure discussed. Options for palliative care given, but she is functional independently at home. I wish to proceed with operation described. 2. Left lower lobe infiltrate, lung pulmonary probably secondary to above. Job ID: [id number]
[2018-08-06] MEDS ORDERED: Fentanyl 100 MCG/2 ML VIAL ONE (19:18)
[2018-08-06] MEDS ORDERED: Albumin 5% 500 ML ONE (19:49)
--- NOTE | 2018-08-06 20:44 | OP ---
DATE OF PROCEDURE: 08/06/2018 PREOPERATIVE DIAGNOSES: Poor IV access, sepsis, in need of CT scan access. POSTOPERATIVE DIAGNOSES: Poor IV access, sepsis, in need of CT scan access. PROCEDURE PERFORMED: Right subclavian vein triple-lumen catheter. ANESTHESIA: 1% xylocaine. DESCRIPTION OF PROCEDURE: The patient was at bedside. Her right periclavicular area was prepared with Betadine and ChloraPrep, draped in routine fashion. Local anesthesia was infiltrated in the skin and subcutaneous tissue with 1% xylocaine. Using infraclavicular approach, right subclavian vein was cannulated with a trocar catheter, J-wire threaded, trocar catheter removed. Seldinger technique was used to place a triple-lumen catheter. The patient tolerated the procedure well. J-wire removed. Catheter was secured with 2 interrupted sutures of 3-0 nylon. The patient tolerated the procedure well. Sterile dressing applied. Each port aspirated blood and flushed with saline solution. Job ID: [id number]
[2018-08-06] MEDS ORDERED: Ventilator Sedation Protocol 1 EACH FS SCH (22:15)
[2018-08-06] MEDS ORDERED: Propofol BOLUS 1,000 MG/100 ML VIAL IV PRN (22:27)
[2018-08-06] MEDS ORDERED: Morphine 2 MG/ML SYRINGE SLOW IVP PRN (22:27)
[2018-08-06] MEDS ORDERED: DISCONTINUE PREVIOUS NARCOTIC PAIN MEDICATIONS AND BENZODIAZEPINES FS SCH (22:27)
[2018-08-06] MEDS ORDERED: Propofol 1,000 MG/100 ML VIAL IV PRN (22:27)
[2018-08-06] MEDS ORDERED: Fentanyl BOLUS 250 ML IVPB PRN (22:27)
[2018-08-06] MEDS ORDERED: Lorazepam 2 MG/ML VIAL SLOW IVP PRN (22:27)
[2018-08-06 22:37] LABS: Actual Bicarbonate (HCO3a) 18.9 mEq/L (22-28); Base Excess (BEa) -6.7 mEq/L (-2.0 to +3.0); Calcium, Ionized 0.99 mmol/L (1.12-1.30); Carboxyhemoglobin (COHb) 0.9 gm% (0.0-3.0); O2 Tension (PaO2) 121.5 mmHg (> 60.0); Potassium - ABG Lab 3.13 mmol/L (3.70-5.30); pH, Arterial 7.31 (7.35-7.45)
[2018-08-06 22:47] LABS: Puncture Site ALINE
--- NOTE | 2018-08-06 23:24 | RAD ---
AP ABDOMINAL RADIOGRAPH 08/06/18 HISTORY: Patient with recent CT scan examination demonstrating mediastinal gas as well as subcutaneous gas and retroperitoneal gas. FINDINGS: There has been interval placement of an endotracheal tube. Tip overlies the left mid abdomen and is d ifficult to further localize. There is a drainage catheter overlying the left abdomen with tip overly ing the left upper quadrant. Subcutaneous emphysema is seen overlying the left abdomen. Radiopaque ca theter also overlies the lower left chest. There is gas seen overlying the left upper quadrant which may reflect patient's known retroperitoneal gas. There is residual contrast within bowel. Vascular ca lcifications are seen in the abdominal aorta. Degenerative changes are noted in the spine. Surgical c lips overlie the right upper quadrant. IMPRESSION: 1. Findings compatible with previously seen subcutaneous gas as well as retroperitoneal gas with in the abdomen noted on CT exam. 2. Nasogastric tube noted in place with tip overlying the left mid abdomen. This is difficult to further localize on this exam. The exact positioning of the nasogastric tube is difficult to confirm . 3. Drainage catheter overlying the left lower quadrant with partial visualization of left sided thoracostomy tube. 4. Above findings discussed with Dr. Elias on 08/06/18 at 2302 hours. POS: [facility]
--- NOTE | 2018-08-06 23:32 | RAD ---
AP PORTABLE CHEST X-RAY 08/06/18 HISTORY: Post surgery and chest tube placement. COMPARISON: 08/06/18 at 1403 hours. FINDINGS: The right subclavian central venous catheter is again noted in place. There has been interval placeme nt of endotracheal tube with the tip approximately 3.4 cm above the level of the kristy. A left sided thoracostomy tube is in place with tip overlying the left lung apex. Parenchymal changes are again s een at the left lung base which may be related to volume loss and residual small amount of fluid. Bro nchovascular markings are accentuated due to shallow depth of inspiration and the portable technique. The cardiac silhouette is unchanged from prior exam. Pulmonary vasculature is mildly prominent. Drai nage catheter overlies the left upper quadrant with nasogastric tube noted in place the tip of which is not visualized. Surgical clips overlie the right upper quadrant. IMPRESSION: 1. Interval placement of lines and tubes as described above. 2. No evidence of a pneumothorax. There are stable parenchymal changes at the left lung base whi ch may be related to either atelectasis or infiltrate. Prominent perihilar interstitial densities terrence e of which is related to accentuation of the bronchovascular markings due to depth of inspiration and portable technique. Followup is recommended. 3. Gas densities overlying the abdomen likely related to retroperitoneal gas and overlying subcu taneous emphysema noted on recent CT exam. POS: MELANIE
[2018-08-06] MEDS: Piperacillin/Tazobactam 4.5 GM in Sodium Chloride 0.9% 100 ML IVPB SCH (23:44)
[2018-08-06 23:49] LABS: Hemoglobin 10.4 g/dL (12.0-16.0); Mean Corpuscular HGB CONC 31.2 g/dL (32.0-36.0); Mean Corpuscular Hemoglobin 24.3 pg (27.0-31.0); Mean Corpuscular Volume 77.8 fL (78.0-98.0); Mean Platelet Volume 7.4 fL (7.4-10.4); Platelet Count 219 thou/uL (130-400); RBC Distribution Width 17.6 % (11.5-14.5); Red Blood Cell (RBC) Count 4.28 mill/uL (4.20-5.40); White Blood Cell (WBC) Count 16.8 thou/uL (4.8-10.8)
[2018-08-07] MEDS: Atorvastatin Calcium 10 MG TAB PO SCH (00:17)
[2018-08-07] MEDS: Famotidine 20 MG TAB PO SCH (00:17)
[2018-08-07 00:18] LABS: Band 46 % (5-11); Lymphocytes 2 % (21-51); MDiff Complete? YES; Neutrophil 52 % (42-75); Platelet Morphology Comment Appears Adequate; Toxic Granulation SLIGHT; Vacuoles SLIGHT
[2018-08-07] MEDS: fentaNYL Citrate/PF 2,000 MCG in Sodium Chloride 0.9% 60 ML IV SCH (00:33)
[2018-08-07 04:20] LABS: ALT (SGPT) 21 U/L (8-55); AST (SGOT) 40 U/L (5-34); Albumin 1.9 g/dL (3.4-4.8); Alkaline Phosphatase 65 U/L (40-150); Anion Gap 12 mmol/L (10-20); BUN (Urea Nitrogen) 19 mg/dL (9.8-20.1); Bilirubin, Total 0.8 mg/dL (0.2-1.2); Calc. Creatinine Clearance 94 mL/min (70-130); Carbon Dioxide 18 mmol/L (23-31); Chloride 101 mmol/L (98-107); Estimated GFR-MDRD Greater than 90; Globulin 1.7 g/dL (2.4-3.5); Glucose 97 mg/dL (83-110); Potassium 3.1 mmol/L (3.5-5.1); Protein, Total 3.6 g/dL (6.0-8.3); Sodium 128 mmol/L (136-145)
[2018-08-07 06:00] LABS: Anisocytosis SLIGHT = 6-15 cells (100X) (0-5/hpf); Band 34 % (5-11); Hemoglobin 10.5 g/dL (12.0-16.0); Lymphocytes 5 % (21-51); MDiff Complete? YES; Mean Corpuscular HGB CONC 31.8 g/dL (32.0-36.0); Mean Corpuscular Hemoglobin 24.6 pg (27.0-31.0); Mean Corpuscular Volume 77.3 fL (78.0-98.0); Mean Platelet Volume 7.4 fL (7.4-10.4); Metamyelocyte 1 % (0-0); Microcytosis SLIGHT = 6-15 cells (100X) (0-5/hpf); Monocytes 1 % (0-10); Neutrophil 59 % (42-75); Platelet Count 237 thou/uL (130-400); Platelet Morphology Comment Appears Adequate; RBC Distribution Width 17.8 % (11.5-14.5); Red Blood Cell (RBC) Count 4.27 mill/uL (4.20-5.40); White Blood Cell (WBC) Count 22.9 thou/uL (4.8-10.8)
[2018-08-07] MEDS: Piperacillin/Tazobactam 4.5 GM in Sodium Chloride 0.9% 100 ML IVPB SCH ×3 (06:17→17:45)
[2018-08-07] MEDS: Sodium Chloride 0.9% 1,000 ML IV SCH ×4 (07:49→20:43)
--- NOTE | 2018-08-07 08:12 | RAD ---
PORTABLE CHEST: Date: 08/07/18 PROVIDED CLINICAL HISTORY: Respiratory insufficiency. FINDINGS: Comparison with 08/06/18. Significant interval change with respect to the prior examination is not apparent. IMPRESSION: As above. POS: MELANIE
[2018-08-07 08:42] LABS: Actual Bicarbonate (HCO3a) 15.1 mEq/L (22-28); Base Excess (BEa) -6.9 mEq/L (-2.0 to +3.0); Calcium, Ionized 1.03 mmol/L (1.12-1.30); Carboxyhemoglobin (COHb) 1.1 gm% (0.0-3.0); Hemoglobin (Hb) 10.5 g/dL (12.0-16.0); O2 Tension (PaO2) 126.5 mmHg (> 60.0); pH, Arterial 7.47 (7.35-7.45)
[2018-08-07 08:48] LABS: ALV-art Gradient 203.625 (0-20); CO2 Tension 21.1 mmHg (35.0-45.0); Puncture Site LINE
[2018-08-07] MEDS: Pantoprazole 40 MG VIAL IVP SCH (09:41)
[2018-08-07] MEDS: Enoxaparin Sodium 40 MG/0.4 ML SYRINGE SC SCH (09:41)
--- NOTE | 2018-08-07 10:10 | PDOC.PN ---
- Subjective Encounter Start Date: 08/07/18 Encounter Start Time: 09:45 -: old records requested/rev pt was found with gas in abdomen, chest and pelvis, she underwent surgery and now she is on ventilator - Objective Resuscitation Status - Order Detail: 08/05/18 13:01 Resuscitation Status Routine Resuscitation Status: FULL: Full Resuscitation MAR Reviewed: Yes Vital Signs & Weight: Vital Signs (12 hours) Temp Pulse Resp BP Pulse Ox 08/07/18 08:00 24 H 08/07/18 07:50 119 H 76/33 L 08/07/18 07:49 120 H 24 H 100 08/07/18 07:00 98.3 F 08/07/18 06:00 24 H 08/07/18 04:00 97.7 F 18 08/07/18 03:31 118 H 82/59 L 08/07/18 02:00 15 08/07/18 00:36 127 H 154/61 H 08/07/18 00:35 127 H 12 100 08/07/18 00:00 97.8 F 12 08/06/18 22:18 97.5 F L 12 100 Weight Weight 164 lb 0.383 oz Most Recent Monitor Data Heart Rate from ECG 120 NIBP 97/39 NIBP BP-Mean 58 Respiration from ECG 21 SpO2 100 I&O: 08/06/18 08/07/18 08/08/18 06:59 06:59 06:59 Intake Total 1760 1829.4 Output Total 1220 80 Balance 1760 609.4 -80 Result Diagrams: 08/07/18 03:49 08/07/18 03:49 Additional Labs: Accuchecks 08/06/18 20:12 POC Glucose 137 H Radiology Reviewed by me: Yes (chest xray reviewed, CT abdomen reviewed) EKG Reviewed by me: Yes (nsr) Phys Exam - Physical Examination Constitutional: NAD on vent HEENT: PERRLA, sclera anicteric OG tube, ET tube Neck: no JVD, supple Respiratory: no wheezing, no rales, no rhonchi chest tube in place on right side central line Cardiovascular: RRR, no significant murmur, no rub Gastrointestinal: soft wound vac in place Musculoskeletal: no edema, pulses present scd+, aponte+ on vent Lymphatic: no nodes Deviation from normal: on vent Skin: no rash, normal turgor Dx/Plan (1) [facility] acquired bacterial pneumonia Code(s): J15.9 - UNSPECIFIED BACTERIAL PNEUMONIA Status: Acute (2) Demand ischemia of myocardium Code(s): I24.8 - OTHER FORMS OF ACUTE ISCHEMIC HEART DISEASE Status: Acute (3) Elevated brain natriuretic peptide (BNP) level Code(s): R79.89 - OTHER SPECIFIED ABNORMAL FINDINGS OF BLOOD CHEMISTRY Status : Acute (4) Encephalopathy in sepsis Code(s): G93.41 - METABOLIC ENCEPHALOPATHY Status: Acute Comment: as well as due to metabolic factors (5) High anion gap metabolic acidosis Code(s): E87.2 - ACIDOSIS Status: Acute (6) Hypomagnesemia Code(s): E83.42 - HYPOMAGNESEMIA Status: Acute (7) Hyponatremia Code(s): E87.1 - HYPO-OSMOLALITY AND HYPONATREMIA Status: Acute (8) Lactic acidosis Code(s): E87.2 - ACIDOSIS Status: Acute (9) Sepsis associated hypotension Code(s): A41.9 - SEPSIS, UNSPECIFIED ORGANISM; I95.9 - HYPOTENSION, UNSPECIFIED Status: Acute (10) Sepsis with acute organ dysfunction Code(s): A41.9 - SEPSIS, UNSPECIFIED ORGANISM; R65.20 - SEVERE SEPSIS WITHOUT SEPTIC SHOCK Status: Acute (11) UTI (urinary tract infection) Status: Acute (12) Anemia of chronic disease Code(s): D63.8 - ANEMIA IN OTHER CHRONIC DISEASES CLASSIFIED ELSEWHERE Status : Chronic Comment: with microcytosis (13) Anxiety and depression Code(s): F41.9 - ANXIETY DISORDER, UNSPECIFIED; F32.9 - MAJOR DEPRESSIVE DISORDER, SINGLE EPISODE, UNSPECIFIED Status: Chronic (14) Dyslipidemia Code(s): E78.5 - HYPERLIPIDEMIA, UNSPECIFIED Status: Chronic (15) S/P laparotomy Status: Acute (16) S/P chest tube placement Code(s): Z93.8 - OTHER ARTIFICIAL OPENING STATUS Status: Acute - Plan cont current plan of care, continue antibiotics, respiratory therapy * continue critical care management as per pulmonary * post operative care as per surgeon * chest tube management * continue empiric antibiotics * medication reviewed as below * symptomatic treatment * supportive care * vent as per pulmonary. Review of Systems - Review of Systems Other: unable to review due to intubated status - Medications/Allergies Allergies/Adverse Reactions: Allergies Allergy/AdvReac Type Severity Reaction Status Date / Time Sulfa (Sulfonamide Allergy Verified 08/05/18 15:43 Antibiotics) Medications: Current Medications Albuterol/Ipratropium (Duoneb) 3 ml NEB [id number] PRN PRN Reason: SOB &/or Wheezing Albuterol/Ipratropium (Duoneb) 3 ml NEB [id number] [facility] Last Admin: 08/07/18 07:49 Dose: 3 ml Artificial Tears (Tears Renewed 15ml Bottle) 2 drop EA EYE PRN PRN PRN Reason: Dry Eyes Enoxaparin Sodium (Lovenox) 40 mg SC 0900 [facility] Last Admin: 08/07/18 09:41 Dose: 40 mg Hydralazine HCl (Apresoline) 10 mg SLOW IVP Q4H PRN PRN Reason: SBP > 180 and HR < 70 Thiamine HCl 200 mg/ Sodium (Chloride) 52 mls @ 100 mls/hr IVPB Q12HR [facility] Stop: 08/09/18 21:01 Last Admin: 08/07/18 09:42 Dose: 52 mls Ascorbic Acid 1,500 mg/ Sodium (Chloride) 53 mls @ 100 mls/hr IVPB Q6HR [facility] Stop: 08/09/18 18:01 Last Admin: 08/07/18 09:43 Dose: 53 mls Sodium Chloride (Normal Saline 0.9%) 1,000 mls @ 150 mls/hr IV .Q6H40M [facility] Last Admin: 08/07/18 07:49 Dose: 1,000 mls Piperacillin Sod/Tazobactam (Sod 4.5 gm/ Sodium Chloride) 100 mls @ 200 mls/hr IVPB Q6HR [facility] Last Admin: 08/07/18 06:17 Dose: 100 mls Fentanyl Citrate 2,000 mcg/ (Sodium Chloride) 100 mls @ 0 mls/hr IV INF [facility]; Protocol Stop: 09/05/18 22:27 Last Admin: 08/07/18 00:33 Dose: 100 mls Fentanyl Citrate (Fentanyl Bolus) 250 mls @ 0 mls/hr IVPB PRN PRN PRN Reason: Breakthrough pain/agitation Stop: 09/05/18 22:27 Lorazepam (Ativan) 2 mg SLOW IVP Q1H PRN PRN Reason: Breakthrough agitation Stop: 09/05/18 22:27 Morphine Sulfate (Morphine) 2 mg SLOW IVP Q1H PRN PRN Reason: BREAKTHROUGH PAIN/Agitation Stop: 09/05/18 22:27 Discontinue Previous Narcotic Pain Medications And Benzodiazepines 1 each FS .ONE [facility] Stop: 09/05/18 22:27 Ondansetron HCl (Zofran) 4 mg IVP Q6H PRN PRN Reason: Nausea/Vomiting Pantoprazole Sodium (Protonix) 40 mg IVP DAILY [facility] Last Admin: 08/07/18 09:41 Dose: 40 mg Propofol (Diprivan) 1,000 mg IV INF PRN; Protocol PRN Reason: TO ACHIEVE GOAL RASS Stop: 09/05/18 22:27 Propofol (Diprivan Bolus) 20 mg IV Q5MIN PRN PRN Reason: BREAKTHROUGH AGITATION Stop: 09/05/18 22:27 Sodium Chloride (Flush - Normal Saline) 10 ml IVF Q12HR [facility] Last Admin: 08/07/18 09:44 Dose: 10 ml Sodium Chloride (Flush - Normal Saline) 10 ml IVF PRN PRN PRN Reason: Saline Flush Sodium Chloride ([place] Nasal [place] 0.65%) 0 ml EA NARE QIDPRN PRN PRN Reason: Nasal Congestion
[2018-08-07] MEDS ORDERED: Ventilator Sedation Protocol 1 EACH FS SCH (10:30)
[2018-08-07] MEDS ORDERED: Sodium Chloride 0.9% 1,000 ML IV SCH ×2 (12:00→13:30)
[2018-08-07] MEDS ORDERED: Potassium Chloride 40 MEQ in Sodium Chloride 0.9% 500 ML IVPB ONE (13:45)
[2018-08-07] MEDS: Albumin 25% 25 GM/100 ML BOT IVPB SCH ×2 (14:02→20:44)
--- NOTE | 2018-08-07 14:55 | PRG ---
DATE OF SERVICE: 08/07/2018 SUBJECTIVE: Dee Monroy is in ICU on the ventilator. She is status post laparotomy, drainage of necrotizing fasciitis, retroperitoneum, pulse irrigation and washout, colectomy. We did not perform a colostomy yesterday due to the contaminated field and we will probably plan on doing that tomorrow. She is sedated on the ventilator. Dr. Perez has seen her. Heart rate is 122, 95/48 blood pressure, respiratory rate 23. This morning, her white count is 23,000 up from 16.8 yesterday, hemoglobin 10.5. Sodium 128, potassium 3.1, carbon dioxide of 18, BUN and creatinine of 19 and 0.52 respectively. Her NG tube output apparently is not recorded. Chest tube drainage 310 mL. SRAVAN drainage 150. Wound VAC 400. Urine output 360 mL, which was postoperative. OBJECTIVE: LUNGS: Clear to auscultation. CARDIAC: Regular rhythm without murmur or gallop. ABDOMEN: Soft, postoperative status, ABThera in place. Cultures from resected muscle and soft tissue yesterday reveal gram-negative rods, gram-positive cocci. Gram-positive rods, she is on Zosyn. Vancomycin has been discontinued as this is an enteric contamination process. ASSESSMENT AND PLAN: 1. Respiratory failure, continue ventilator. 2. Sepsis. Continue antibiotics support, washout tomorrow. 3. Open abdomen. Plan; Thursday morning, tomorrow morning, washout abdomen, pulse irrigation, hopefully to definitively close her abdomen and perform her colostomy. Wound care will be available to address her wounds in left flank with wound VAC. Continue supportive care for now. Job ID: [id number]
--- NOTE | 2018-08-08 00:09 | PRG ---
DATE OF SERVICE: 08/07/2018 SUBJECTIVE: Ms. Monroy had a rough day yesterday. Dr. Elias is consulted for central line placement. After the line was placed, free air was noted. CT scanning showed free air and significant inflammatory changes in the abdomen leading to a laparotomy, which led to findings of a big retroperitoneal abscess, that was felt to be extending up into the left chest. She had a long abdominal washout and placement of a left chest tube. She is transferred to critical care unit afterwards for further care. She is sedated for ventilation. OBJECTIVE: VITAL SIGNS: Heart rate is 112, blood pressure is 114/44, and respiratory rate is 15, and oximetry is 100%. HEENT: Pupils are reactive. Sclerae are anicteric. NECK: Without lymphadenopathy. LUNGS: Clear anteriorly. HEART: Regular rhythm. ABDOMEN: Distended and bandaged. EXTREMITIES: Without edema. LABORATORY DATA: White count 22.9, hemoglobin 10.5, and platelets 237. Sodium 128, potassium 3.1, chloride 101, bicarb 18, BUN 19, and creatinine 0.52. Blood gas 7.47, CO2 21, and pO2 126. Chest radiograph does not show pulmonary edema yet. She is continuing to receive volume resuscitation. As it is expected, there will be significant abdominal third spacing given her severe intraabdominal infectious process. IMPRESSION: Respiratory failure after laparotomy for what is likely perforated diverticulitis with retroperitoneal abscess extending up into the left chest. Blood cultures surprisingly remained negative from 2 days ago. Continue supportive care. She is not weanable. She is tentatively on the schedule for more abdominal washouts. Job ID: [id number] critical care time 30 minutes [facility]
[2018-08-08] MEDS: Piperacillin/Tazobactam 4.5 GM in Sodium Chloride 0.9% 100 ML IVPB SCH ×4 (01:05→17:17)
[2018-08-08] MEDS: Albumin 25% 25 GM/100 ML BOT IVPB SCH ×3 (02:51→16:22)
[2018-08-08] MEDS ORDERED: Phenylephrine HCL 10 MG/ML VIAL ONE (04:07)
[2018-08-08] MEDS ORDERED: Norepinephrine 8 MG/0.9% NS 0 ML ONE (04:07)
[2018-08-08] MEDS ORDERED: Fentanyl 250 MCG/5 ML VIAL ONE (04:07)
[2018-08-08] MEDS: Sodium Chloride 0.9% 1,000 ML IV SCH ×4 (04:48→17:18)
[2018-08-08 05:38] LABS: Anion Gap 12 mmol/L (10-20); BUN (Urea Nitrogen) 14 mg/dL (9.8-20.1); Calc. Creatinine Clearance 95 mL/min (70-130); Carbon Dioxide 14 mmol/L (23-31); Chloride 111 mmol/L (98-107); Estimated GFR-MDRD Greater than 90; Glucose 83 mg/dL (83-110); Sodium 134 mmol/L (136-145)
[2018-08-08 05:42] LABS: Potassium 2.9 mmol/L (3.5-5.1)
[2018-08-08] MEDS ORDERED: Potassium Chloride 40 MEQ in Premix Bag 1 BAG IVPB SCH (06:15)
[2018-08-08 07:57] LABS: Base Excess (BEa) -9.5 mEq/L (-2.0 to +3.0); CO2 Tension 27.6 mmHg (35.0-45.0); Calcium, Ionized 1.08 mmol/L (1.12-1.30); Hemoglobin (Hb) 7.8 g/dL (12.0-16.0); O2 Tension (PaO2) 71.2 mmHg (> 60.0); Potassium - ABG Lab 3.11 mmol/L (3.70-5.30); pH, Arterial 7.35 (7.35-7.45)
[2018-08-08 08:01] LABS: Puncture Site LINE
[2018-08-08 08:12] LABS: Band 42 % (5-11); Eosinophils 1 % (0-10); Hemoglobin 7.9 g/dL (12.0-16.0); Lymphocytes 3 % (21-51); MDiff Complete? YES; Mean Corpuscular HGB CONC 32.1 g/dL (32.0-36.0); Mean Corpuscular Hemoglobin 24.6 pg (27.0-31.0); Mean Corpuscular Volume 76.6 fL (78.0-98.0); Mean Platelet Volume 7.5 fL (7.4-10.4); Microcytosis SLIGHT = 6-15 cells (100X) (0-5/hpf); Monocytes 1 % (0-10); Neutrophil 53 % (42-75); Platelet Count 176 thou/uL (130-400); Platelet Morphology Comment Appears Adequate; Poikilocytosis SLIGHT = 6-15 cells (100X) (0-5/hpf); RBC Distribution Width 18.1 % (11.5-14.5); Red Blood Cell (RBC) Count 3.22 mill/uL (4.20-5.40); White Blood Cell (WBC) Count 19.3 thou/uL (4.8-10.8)
[2018-08-08] MEDS: Enoxaparin Sodium 40 MG/0.4 ML SYRINGE SC SCH (08:33)
[2018-08-08] MEDS: Pantoprazole 40 MG VIAL IVP SCH (08:47)
[2018-08-08] MEDS ORDERED: Midazolam HCl 2 mg/2 ml Vial ONE (09:03)
--- NOTE | 2018-08-08 09:52 | PDOC.PN ---
- Subjective Encounter Start Date: 08/08/18 Encounter Start Time: 07:00 pt remained on ventilator, today her potassium is low which has been replaced, her H & H is little low, Patient seen and examined. No overnight events - Objective Resuscitation Status - Order Detail: 08/05/18 13:01 Resuscitation Status Routine Resuscitation Status: FULL: Full Resuscitation MAR Reviewed: Yes Vital Signs & Weight: Vital Signs (12 hours) Temp Pulse Resp BP Pulse Ox 08/08/18 08:00 16 99 08/08/18 07:42 107 H 112/41 L 08/08/18 07:41 108 H 17 95 08/08/18 07:00 98.1 F 08/08/18 06:00 14 08/08/18 04:00 97.7 F 14 08/08/18 02:40 110 H 137/57 L 08/08/18 02:00 17 08/08/18 01:00 98.5 F 08/08/18 00:29 111 H 138/56 L 08/08/18 00:28 112 H 24 H 97 08/08/18 00:00 18 08/07/18 22:00 18 Weight Admit Weight 164 lb 0.383 oz Weight 182 lb 1.629 oz Most Recent Monitor Data Heart Rate from ECG 117 NIBP 118/46 NIBP BP-Mean 70 Respiration from ECG 17 SpO2 97 I&O: 08/07/18 08/08/18 08/09/18 06:59 06:59 06:59 Intake Total 1829.4 5152 100 Output Total 1220 3633 190 Balance 609.4 1519 -90 Result Diagrams: 08/08/18 05:00 08/08/18 05:00 Radiology Reviewed by me: Yes (chest xray reviwed) EKG Reviewed by me: Yes (nsr) Phys Exam - Physical Examination Constitutional: NAD on vent HEENT: PERRLA, sclera anicteric OG and ET in place Neck: no JVD, supple Respiratory: no wheezing, no rales, no rhonchi anteriorly, chest tube in place Cardiovascular: RRR, no significant murmur, no rub wound vac in place, SRAVAN drain in place Musculoskeletal: no edema, pulses present unable to assess on vent Lymphatic: no nodes Skin: no rash, normal turgor Dx/Plan (1) Acute respiratory failure Code(s): J96.00 - ACUTE RESPIRATORY FAILURE, UNSP W HYPOXIA OR HYPERCAPNIA Status: Acute Qualifiers: Respiratory failure complication: hypoxia Qualified Code(s): J96.01 - Acute respiratory failure with hypoxia (2) S/P laparotomy Status: Acute Comment: for perforated colon (3) S/P chest tube placement Code(s): Z93.8 - OTHER ARTIFICIAL OPENING STATUS Status: Acute Comment: for air in mediastinum and chest (4) Community acquired bacterial pneumonia Code(s): J15.9 - UNSPECIFIED BACTERIAL PNEUMONIA Status: Acute (5) Demand ischemia of myocardium Code(s): I24.8 - OTHER FORMS OF ACUTE ISCHEMIC HEART DISEASE Status: Acute (6) Elevated brain natriuretic peptide (BNP) level Code(s): R79.89 - OTHER SPECIFIED ABNORMAL FINDINGS OF BLOOD CHEMISTRY Status : Acute (7) Encephalopathy in sepsis Code(s): G93.41 - METABOLIC ENCEPHALOPATHY Status: Acute Comment: as well as due to metabolic factors (8) High anion gap metabolic acidosis Code(s): E87.2 - ACIDOSIS Status: Acute (9) Hypomagnesemia Code(s): E83.42 - HYPOMAGNESEMIA Status: Acute (10) Hyponatremia Code(s): E87.1 - HYPO-OSMOLALITY AND HYPONATREMIA Status: Acute (11) Lactic acidosis Code(s): E87.2 - ACIDOSIS Status: Acute (12) Sepsis associated hypotension Code(s): A41.9 - SEPSIS, UNSPECIFIED ORGANISM; I95.9 - HYPOTENSION, UNSPECIFIED Status: Acute (13) Sepsis with acute organ dysfunction Code(s): A41.9 - SEPSIS, UNSPECIFIED ORGANISM; R65.20 - SEVERE SEPSIS WITHOUT SEPTIC SHOCK Status: Acute (14) UTI (urinary tract infection) Status: Acute (15) Anemia of chronic disease Code(s): D63.8 - ANEMIA IN OTHER CHRONIC DISEASES CLASSIFIED ELSEWHERE Status : Chronic Comment: with microcytosis (16) Anxiety and depression Code(s): F41.9 - ANXIETY DISORDER, UNSPECIFIED; F32.9 - MAJOR DEPRESSIVE DISORDER, SINGLE EPISODE, UNSPECIFIED Status: Chronic (17) Dyslipidemia Code(s): E78.5 - HYPERLIPIDEMIA, UNSPECIFIED Status: Chronic - Plan cont current plan of care, plan discussed w/ family, continue antibiotics * today plan for repeat surgery as per Dr Elias * potassium replaced * monitor H & H and transfuse as needed * continue zosyn * wound care * test result updated to daughter on phone * medication reviewed as below * symptomatic treatment * vent as per pulmonary. Review of Systems - Review of Systems Other: unable to review due to intubated status - Medications/Allergies Allergies/Adverse Reactions: Allergies Allergy/AdvReac Type Severity Reaction Status Date / Time Sulfa (Sulfonamide Allergy Verified 08/05/18 15:43 Antibiotics) Medications: Current Medications Albumin Human (Albumin 25%) 25 gm IVPB Q6H [facility], [facility]1983 Stop: 08/09/18 14:01 Last Admin: 08/08/18 08:46 Dose: 25 gm Albuterol/Ipratropium (Duoneb) 3 ml NEB [id number] PRN PRN Reason: SOB &/or Wheezing Albuterol/Ipratropium (Duoneb) 3 ml NEB [id number] [facility], [facility]1983 Last Admin: 08/08/18 07:41 Dose: 3 ml Artificial Tears (Tears Renewed 15ml Bottle) 2 drop EA EYE PRN PRN PRN Reason: Dry Eyes Enoxaparin Sodium (Lovenox) 40 mg SC 0900 [facility], [facility] Last Admin: 08/08/18 08:33 Dose: Not Given Hydralazine HCl (Apresoline) 10 mg SLOW IVP Q4H PRN PRN Reason: SBP > 180 and HR < 70 Thiamine HCl 200 mg/ Sodium (Chloride) 52 mls @ 100 mls/hr IVPB Q12HR [facility]1983 Stop: 08/09/18 21:01 Last Admin: 08/08/18 08:47 Dose: 52 mls Ascorbic Acid 1,500 mg/ Sodium (Chloride) 53 mls @ 100 mls/hr IVPB Q6HR [facility]1983 Stop: 08/09/18 18:01 Last Admin: 08/08/18 07:25 Dose: 53 mls Piperacillin Sod/Tazobactam (Sod 4.5 gm/ Sodium Chloride) 100 mls @ 200 mls/hr IVPB Q6HR [facility] Last Admin: 08/08/18 06:07 Dose: 100 mls Fentanyl Citrate 2,000 mcg/ (Sodium Chloride) 100 mls @ 0 mls/hr IV INF [facility], [facility]; Protocol Stop: 09/05/18 22:27 Last Admin: 08/07/18 00:33 Dose: 100 mls Fentanyl Citrate (Fentanyl Bolus) 250 mls @ 0 mls/hr IVPB PRN PRN PRN Reason: Breakthrough pain/agitation Stop: 09/05/18 22:27 Sodium Chloride (Normal Saline 0.9%) 1,000 mls @ 175 mls/hr IV .Q5H43M [facility], [facility] Last Admin: 08/08/18 08:33 Dose: Not Given Lorazepam (Ativan) 2 mg SLOW IVP Q1H PRN PRN Reason: Breakthrough agitation Stop: 09/05/18 22:27 Miscellaneous Medication (Ventilator Sedation Protocol) 1 each FS ASDIR [facility] Morphine Sulfate (Morphine) 2 mg SLOW IVP Q1H PRN PRN Reason: BREAKTHROUGH PAIN/Agitation Stop: 09/05/18 22:27 Discontinue Previous Narcotic Pain Medications And Benzodiazepines 1 each FS .ONE [facility], [facility]1983 Stop: 09/05/18 22:27 Ondansetron HCl (Zofran) 4 mg IVP Q6H PRN PRN Reason: Nausea/Vomiting Pantoprazole Sodium (Protonix) 40 mg IVP DAILY [facility] Last Admin: 08/08/18 08:47 Dose: 40 mg Propofol (Diprivan) 1,000 mg IV INF PRN; Protocol PRN Reason: TO ACHIEVE GOAL RASS Stop: 09/05/18 22:27 Propofol (Diprivan Bolus) 20 mg IV Q5MIN PRN PRN Reason: BREAKTHROUGH AGITATION Stop: 09/05/18 22:27 Sodium Chloride (Flush - Normal Saline) 10 ml IVF Q12HR [facility] Last Admin: 08/08/18 08:33 Dose: Not Given Sodium Chloride (Flush - Normal Saline) 10 ml IVF PRN PRN PRN Reason: Saline Flush Sodium Chloride ([place] 0.65%) 0 ml EA NARE QIDPRN PRN PRN Reason: Nasal Congestion
--- NOTE | 2018-08-08 10:05 | RAD ---
PORTABLE CHEST: Date: 08/08/18 PROVIDED CLINICAL HISTORY: Respiratory insufficiency. FINDINGS: Comparison with 08/07/18. Patchy parenchymal opacity in the right mid and lower lung zones has developed since the prior study. Appearance of the left hemithorax is not significantly changed with respect to prior. ET and enteric catheters are again seen in similar position. There is no evidence for pneumothorax. IMPRESSION: Development of right basilar opacity that may reflect pleural and/or parenchymal change. Follow-up is recommended. POS: MELANIE
[2018-08-08] MEDS ORDERED: Fentanyl 100 MCG/2 ML VIAL ONE (11:23)
[2018-08-08] MEDS ORDERED: Budesonide 0.5 MG/2 ML NEB ONE (11:40)
--- NOTE | 2018-08-08 12:40 | OP ---
DATE OF PROCEDURE: 08/08/2018 PREOPERATIVE DIAGNOSES: Diverticulitis retroperitoneal abscess, necrotizing fasciitis of left flank, sepsis, status post colon resection upon colon segment, colostomy not yet formed, ABThera in place, open abdomen. POSTOPERATIVE DIAGNOSES: Diverticulitis retroperitoneal abscess, necrotizing fasciitis of left flank, sepsis, status post colon resection upon colon segment, colostomy not yet formed, ABThera in place, open abdomen. PROCEDURES PERFORMED: Exploratory laparotomy, abdominal washout, pulse irrigation of retroperitoneum, placement of another right lower quadrant SRAVAN drain into the left retroperitoneum, debridement of fatty tissue of retroperitoneum, end colostomy of the left lower quadrant (Kiesha's procedure), definitive closure of the abdominal cavity, fascia with loose approximation of skin and wound VAC application to midline wound, VAC application by Wound Care and VAC application to left flank open wound. Left flank incision 16 x 10 x 10 cm and other incision 7 x 1 x 1 cm, wound VAC application. Two units of packed cells transfused. ANESTHESIA: General anesthesia. DESCRIPTION OF PROCEDURE: The patient was taken to the operating room. Once in supine position, ABThera was removed, abdomen was prepared with Betadine and draped in routine fashion. Abdominal cavity was irrigated thoroughly. Retroperitoneum inspected and a small amount of necrotic fatty tissue blobs removed. A pulse irrigation performed with 5 L in retroperitoneum with this wound extending from the thoracic spine into the mediastinum into the pelvis. Abdominal cavity washed out. Abdominal cavity was clean without any contamination. Small bowel was not dilated. At this point, a #19 Gold SRAVAN drain second one was placed to the right lower quadrant incision, brought into the retroperitoneum for second drain. It was secured with 3-0 nylon and OpSite applied. Sponge and instrument counts were correct. Midline fascia was closed with continuous suture of #1 PDS. Skin was irrigated. The fascia was closed after colostomy formation, skin defects, subcutaneous tissue mainly in the left lower quadrant over the rectus sheath. A cruciate incision was made in the rectus sheath anteriorly and rectus split medially and laterally and posterior fascia, peritoneum opened and dilated to 2 fingerbreadths and colostomy was brought through this and then wound closed as described. Wound was irrigated and midline skin approximated for a short segment about the umbilicus, left open superiorly and inferiorly. Colostomy maturation then undertaken with four quadrant Ashley sutures of 3-0 Vicryl and simple sutures of 3-0 Vicryl with completing colostomy maturation after excision of the end with the cautery, colostomy mucosa was healthy. Colostomy appliance secured. Wound Care Team then arrived to place a wound VAC over the midline wound. The left flank wound was then inspected as she was turned into slight right lateral decubitus tilt. This wound looks fairly good. The deep tissue communicated with the retroperitoneum. I could palpate the drains. Wound Care placed a wound VAC. The patient was transported back to the intensive care unit on the ventilator in stable condition. She did receive 2 units of blood. Estimated blood loss probably less than 20 mL. She had a preoperative low hemoglobin. Job ID: [id number]
--- NOTE | 2018-08-08 13:50 | PRG ---
DATE OF SERVICE: 08/08/2018 SUBJECTIVE: Ms. Monroy went back to the OR. She was washed out and closed. It is not anticipated she will need another surgical procedure. She was transferred back to the critical care unit. OBJECTIVE: VITAL SIGNS: She is afebrile, heart rate 76, blood pressure 158/81 , and respiratory rate 21. LUNGS: Clear. HEART: Regular rhythm. S1 and S2 normal. ABDOMEN: Soft and nontender. EXTREMITIES: Without clubbing, cyanosis, or edema. LABORATORY DATA: Sodium 142, potassium 3.5, chloride 106, bicarb 28, BUN 22, creatinine 0.74, glucose 325. White count 8.5, hemoglobin 10.8, platelets 333, 000. A pH 7.35, CO2 of 55, pO2 of 87 yesterday. No blood gas is done today. Blood gas postoperatively. Overall, she appears to be stable postoperatively. IMPRESSION: 1. Status post laparotomy for retroperitoneal infectious process probably related to anaerobic infection started with diverticulitis. 2. Anemia secondary to blood loss. 3. Mild hyperchloremic acidosis. A pH 7.35, CO2 of 27, pO2 of 71 today. We will continue supportive care. She is not weanable at this point in time. Critical care time 30 minutes. Job ID: [id number] MTDD
--- NOTE | 2018-08-08 13:54 | OP ---
DATE OF PROCEDURE: 08/06/2018 PREOPERATIVE DIAGNOSES: Diverticulitis with drainage and abscess, necrotizing fasciitis process, retroperitoneal to the diaphragm and to the thoracic spine with necrotizing fasciitis, left flank and left pleural fluid, sepsis. PROCEDURES PERFORMED: 1. Exploratory laparotomy. 2. Mobilization of the splenic flexure. 3. Resection of the descending sigmoid colon. 4. Kiesha's pouch marked with a 2-0 Prolene. 5. Colostomy not performed in this operation. 6. Abdominal washout. 7. Drainage of retroperitoneal abscess and necrotizing fasciitis type process from the diaphragm to the pelvis, to the spine. 8. ABThera application. 9. Open abdomen, plan re-exploration in the next 48 hours. 10. Retroperitoneal washout. 11. #19 gold SRAVAN drain in the retroperitoneum left. 12. Left tube thoracostomy, 36-Austrian, cloudy pleural fluid submitted to microbiology culture. 13. Debridement of skin, subcutaneous tissue, fascia, muscle, left flank. 14. Drainage of necrotizing fasciitis process. 15. Wound left open, healing by secondary intention. ANESTHESIA: General. ESTIMATED BLOOD LOSS: 150 mL. BLOOD TRANSFUSED: Two units (preoperative hemoglobin is 8). Note, the patient was admitted with sepsis with the hospitalist service yesterday. I was asked to place a central line. The patient's nurse noted edema, crepitance, redness in the left flank. Post procedural chest x-ray from central line revealed subcutaneous gas leading to a CAT scan of the abdomen and pelvis after which I was consulted for retroperitoneal gas, subcutaneous tissue gas and probable diverticulitis. DESCRIPTION OF PROCEDURE: The patient was taken to the operating room, operating room where in the supine position, under general anesthesia, abdomen was prepared with ChloraPrep and draped in routine fashion. Incision made in the midline, carried down through the skin and subcutaneous tissue, midline fascia, and abdominal cavity sharply. cavity. There was no gross contamination, but there was some gas that erupted on entering. It was foul smelling. A Bookwalter retractor used. There was some inflammatory exudate over a short segment of small bowel, but otherwise no other gross contamination. As I mobilized the left colon and sigmoid colon, it was obvious that this was adherent to the left lower abdomen, pelvis inlet and had an area of peritoneum directed cephalad to the diaphragm under which lie gas and cloudy fluid. The splenic flexure mobilized, gastrocolic ligament taken down from the distal transverse colon, left colon mobilized to enable colon resection. The sigmoid colon mobilized, identified the ovarian vessels and site anterior to them. Mesentery of the colon divided between LigaSure and 2-0 silk ties down to the distal sigmoid, which was divided with a contour stapler and this was marked with a 2-0 Prolene. Mesentery serially divided between clamps and ligature proximally. Mobilized the colon proximal to the disease in the mid descending colon. The colon was transected with another fire of the contour stapler. The colon was adequately mobilized for future colostomy and future reversal of the colostomy. Abdominal cavity thoroughly irrigated. The retroperitoneum opened in the previously described process where there was retroperitoneal gas and contamination. This was dissected free and using blunt dissection carried out retroperitoneal to the lumbar spine and superiorly to the diaphragm. A tannish foul-smelling fluid was evacuated, pulse irrigation performed, thoroughly washed this area. Necrotic contaminated fatty tissue was debrided and scooped out. Wound irrigated with the pulse senior sql developer. A #19 Gold SRAVAN drain placed through a left lower quadrant stab incision secured with 3-0 nylon suture placed in this area. Abdominal cavity thoroughly irrigated with saline several liters. Sponge and needle counts were correct. It was decided not to perform a colostomy at this time. The ABThera was applied for an open abdomen to facilitate abdominal washout and washout retroperitoneum in the next 36-48 hours. ABThera was applied. The patient was then repositioned on the soliz bag, properly padded and left lateral chest and flank prepared with ChloraPrep and draped in routine fashion. A left tube thoracostomy placed through a transverse incision in the mid lateral chest wall at the 6th or 7th intercostal space. An incision was made and the left thoracic cavity entered and a 36-Austrian chest tube inserted and the wound closed with 2-0 Prolene vertical mattress and a sterile dressing applied. Cloudy fluid was drained from the chest tube and it was sent for culture. Incision was made over the indurated crepitant area in her left flank. Initial more anterior incision of the left flank did not reveal any fluid. Another area that was more red and indurated was incised and there was cloudy grayish fluid evacuated from the deep fascia. Muscle was necrotic, infected and debrided from over the iliac crest. This debrided back to healthy tissue. Pulse irrigation performed. Wound left open and saline wet-to-dry dressing applied. The patient transferred to the Intensive Care Unit in critical condition. Job ID: [id number]
[2018-08-08] MEDS ORDERED: PHENYLEPHRINE-NS 100 MCG/ML 10 ML SYRINGE ONE (15:35)
[2018-08-08] MEDS ORDERED: Rocuronium Bromide 10 MG/ML (10ML VIAL) ONE (15:35)
[2018-08-08] MEDS ORDERED: Albumin 25% 100 ML ONE (16:21)
[2018-08-08 18:33] LABS: Hemoglobin 10.7 g/dL (12.0-16.0); Mean Corpuscular HGB CONC 32.5 g/dL (32.0-36.0); Mean Corpuscular Hemoglobin 26.2 pg (27.0-31.0); Mean Corpuscular Volume 80.5 fL (78.0-98.0); Mean Platelet Volume 7.3 fL (7.4-10.4); Platelet Count 172 thou/uL (130-400); RBC Distribution Width 18.9 % (11.5-14.5); Red Blood Cell (RBC) Count 4.09 mill/uL (4.20-5.40); White Blood Cell (WBC) Count 25.4 thou/uL (4.8-10.8)
[2018-08-08 18:49] LABS: Anion Gap 16 mmol/L (10-20); BUN (Urea Nitrogen) 12 mg/dL (9.8-20.1); Calc. Creatinine Clearance 94 mL/min (70-130); Calcium 7.3 mg/dL (7.8-10.44); Carbon Dioxide 12 mmol/L (23-31); Chloride 114 mmol/L (98-107); Estimated GFR-MDRD Greater than 90; Glucose 91 mg/dL (83-110); Potassium 3.5 mmol/L (3.5-5.1); Sodium 138 mmol/L (136-145)
[2018-08-08 18:52] LABS: Band 65 % (5-11); Lymphocytes 1 % (21-51); MDiff Complete? YES; Monocytes 4 % (0-10); Neutrophil 28 % (42-75); Reactive Lymphocytes 2 % (0-10)
[2018-08-08] MEDS ORDERED: Labetalol HCl 100 MG/20 ML VIAL ONE (21:16)
[2018-08-08] MEDS: fentaNYL Citrate/PF 2,000 MCG in Sodium Chloride 0.9% 60 ML IV SCH (22:10)
[2018-08-09] MEDS: Piperacillin/Tazobactam 4.5 GM in Sodium Chloride 0.9% 100 ML IVPB SCH ×4 (00:12→17:19)
[2018-08-09] MEDS: Sodium Chloride 0.9% 1,000 ML IV SCH ×3 (00:13→13:00)
[2018-08-09 05:19] LABS: Hemoglobin 10.5 g/dL (12.0-16.0); Mean Corpuscular HGB CONC 31.9 g/dL (32.0-36.0); Mean Corpuscular Hemoglobin 26.5 pg (27.0-31.0); Mean Corpuscular Volume 82.9 fL (78.0-98.0); Mean Platelet Volume 8.1 fL (7.4-10.4); Platelet Count 160 thou/uL (130-400); RBC Distribution Width 18.9 % (11.5-14.5); Red Blood Cell (RBC) Count 3.98 mill/uL (4.20-5.40); White Blood Cell (WBC) Count 20.1 thou/uL (4.8-10.8)
[2018-08-09 05:33] LABS: Anion Gap 15 mmol/L (10-20); BUN (Urea Nitrogen) 11 mg/dL (9.8-20.1); Calc. Creatinine Clearance 98 mL/min (70-130); Calcium 7.1 mg/dL (7.8-10.44); Carbon Dioxide 13 mmol/L (23-31); Chloride 116 mmol/L (98-107); Estimated GFR-MDRD Greater than 90; Glucose 80 mg/dL (83-110); Magnesium 1.8 mg/dL (1.6-2.6); Phosphorus 2.7 mg/dL (2.3-4.7); Potassium 3.1 mmol/L (3.5-5.1); Sodium 141 mmol/L (136-145)
[2018-08-09 05:48] LABS: Band 32 % (5-11); Dohle Bodies SLIGHT; Lymphocytes 2 % (21-51); MDiff Complete? YES; Monocytes 1 % (0-10); Neutrophil 65 % (42-75); Toxic Granulation SLIGHT
[2018-08-09] MEDS ORDERED: Potassium Chloride 40 MEQ in Premix Bag 1 BAG IVPB SCH (07:30)
[2018-08-09 07:49] LABS: Actual Bicarbonate (HCO3a) 11.7 mEq/L (22-28); Base Excess (BEa) -12.8 mEq/L (-2.0 to +3.0); Calcium, Ionized 1.08 mmol/L (1.12-1.30); Carboxyhemoglobin (COHb) 1.1 gm% (0.0-3.0); Hemoglobin (Hb) 10.9 g/dL (12.0-16.0); O2 Tension (PaO2) 134.1 mmHg (> 60.0); Potassium - ABG Lab 2.88 mmol/L (3.70-5.30); pH, Arterial 7.31 (7.35-7.45)
[2018-08-09 07:51] LABS: ALV-art Gradient 121.725 (0-20); CO2 Tension 23.5 mmHg (35.0-45.0); Puncture Site ALINE
[2018-08-09] MEDS: Enoxaparin Sodium 40 MG/0.4 ML SYRINGE SC SCH (08:51)
[2018-08-09] MEDS: Pantoprazole 40 MG VIAL IVP SCH (08:51)
--- NOTE | 2018-08-09 09:17 | RAD ---
AP VIEW CHEST: HISTORY: Ventilator dependent patient. FINDINGS: AP view chest is obtained on 08/09/2018. Comparison is made to previous exam from 08/08/2018. AP view chest demonstrates nasogastric and endotracheal tubes to be in place. A right subclavian danielle tral line is seen. Left side chest tube is in place. Pulmonary vascular congestion is seen. Bilateral pleural effusions seen. Bilateral airspace opacities appear to have worsened in the right lung compared to the previous maryann rison exam. IMPRESSION: Lines and tubes unchanged with increasing right lung airspace opacities concerning for pulmonary avis a or development right lung pneumonia. POS: JHONY
--- NOTE | 2018-08-09 10:52 | PDOC.PN ---
- Subjective Encounter Start Date: 08/09/18 Encounter Start Time: 09:00 Patient seen and examined. pt is on vent. No overnight events - Objective Resuscitation Status - Order Detail: 08/05/18 13:01 Resuscitation Status Routine Resuscitation Status: FULL: Full Resuscitation MAR Reviewed: Yes Vital Signs & Weight: Vital Signs (12 hours) Temp Pulse Resp BP Pulse Ox 08/09/18 10:44 116 H 128/59 L 08/09/18 07:14 111 H 100/44 L 08/09/18 07:12 113 H 27 H 99 08/09/18 07:00 99.1 F 08/09/18 06:00 19 08/09/18 05:00 99 F 08/09/18 04:00 22 H 08/09/18 02:00 08/09/18 01:54 116 H 08/09/18 01:00 98.7 F 08/09/18 00:00 23 H 08/08/18 23:08 117 H 93/50 L Weight Admit Weight 164 lb 0.383 oz Weight 173 lb 8.061 oz Most Recent Monitor Data Heart Rate from ECG 111 NIBP 128/59 NIBP BP-Mean 82 Respiration from ECG 16 SpO2 99 I&O: 08/08/18 08/09/18 08/10/18 06:59 06:59 06:59 Intake Total 5152 3322 Output Total 3633 3015 40 Balance 1519 307 -40 Result Diagrams: 08/09/18 04:50 08/09/18 04:50 Radiology Reviewed by me: Yes (chest xray- right side pneumonia, edema) EKG Reviewed by me: Yes (sinus tachycardia) Phys Exam - Physical Examination Constitutional: NAD on vent, sedated, HEENT: PERRLA OG tube, ET tube Neck: no JVD, supple coarse sound+, chest tube in place on right side central line Cardiovascular: RRR, no significant murmur tachycardia SRAVAN drain, wound Musculoskeletal: no edema, pulses present intubated Lymphatic: no nodes Deviation from normal: intubated Skin: no rash, normal turgor Dx/Plan (1) Acute respiratory failure Code(s): J96.00 - ACUTE RESPIRATORY FAILURE, UNSP W HYPOXIA OR HYPERCAPNIA Status: Acute Qualifiers: Respiratory failure complication: hypoxia Qualified Code(s): J96.01 - Acute respiratory failure with hypoxia (2) S/P laparotomy Status: Acute Comment: for perforated colon (3) S/P chest tube placement Code(s): Z93.8 - OTHER ARTIFICIAL OPENING STATUS Status: Acute Comment: for air in mediastinum and chest (4) Community acquired bacterial pneumonia Code(s): J15.9 - UNSPECIFIED BACTERIAL PNEUMONIA Status: Acute (5) Demand ischemia of myocardium Code(s): I24.8 - OTHER FORMS OF ACUTE ISCHEMIC HEART DISEASE Status: Acute (6) Elevated brain natriuretic peptide (BNP) level Code(s): R79.89 - OTHER SPECIFIED ABNORMAL FINDINGS OF BLOOD CHEMISTRY Status : Acute (7) Encephalopathy in sepsis Code(s): G93.41 - METABOLIC ENCEPHALOPATHY Status: Acute Comment: as well as due to metabolic factors (8) High anion gap metabolic acidosis Code(s): E87.2 - ACIDOSIS Status: Acute (9) Hypomagnesemia Code(s): E83.42 - HYPOMAGNESEMIA Status: Acute (10) Hyponatremia Code(s): E87.1 - HYPO-OSMOLALITY AND HYPONATREMIA Status: Acute (11) Lactic acidosis Code(s): E87.2 - ACIDOSIS Status: Acute (12) Sepsis associated hypotension Code(s): A41.9 - SEPSIS, UNSPECIFIED ORGANISM; I95.9 - HYPOTENSION, UNSPECIFIED Status: Acute (13) Sepsis with acute organ dysfunction Code(s): A41.9 - SEPSIS, UNSPECIFIED ORGANISM; R65.20 - SEVERE SEPSIS WITHOUT SEPTIC SHOCK Status: Acute (14) UTI (urinary tract infection) Status: Acute (15) Anemia of chronic disease Code(s): D63.8 - ANEMIA IN OTHER CHRONIC DISEASES CLASSIFIED ELSEWHERE Status : Chronic Comment: with microcytosis (16) Anxiety and depression Code(s): F41.9 - ANXIETY DISORDER, UNSPECIFIED; F32.9 - MAJOR DEPRESSIVE DISORDER, SINGLE EPISODE, UNSPECIFIED Status: Chronic (17) Dyslipidemia Code(s): E78.5 - HYPERLIPIDEMIA, UNSPECIFIED Status: Chronic - Plan cont current plan of care, continue antibiotics, respiratory therapy * continue current critical care as per surgeon, pulmonary * replace electrolytes as per protocol * post operative care as per surgeon * vent as per pulmonary * wound care * medication reviewed as below * symptomatic treatment. * continue zosyn Review of Systems - Review of Systems Other: unable to review due to intubated status - Medications/Allergies Allergies/Adverse Reactions: Allergies Allergy/AdvReac Type Severity Reaction Status Date / Time Sulfa (Sulfonamide Allergy Verified 08/05/18 15:43 Antibiotics) Medications: Current Medications Albuterol/Ipratropium (Duoneb) 3 ml NEB [id number] PRN PRN Reason: SOB &/or Wheezing Albuterol/Ipratropium (Duoneb) 3 ml NEB [id number] [facility] Last Admin: 08/09/18 07:12 Dose: 3 ml Artificial Tears (Tears Renewed 15ml Bottle) 2 drop EA EYE PRN PRN PRN Reason: Dry Eyes Enoxaparin Sodium (Lovenox) 40 mg SC 0900 [facility] Last Admin: 08/09/18 08:51 Dose: 40 mg Hydralazine HCl (Apresoline) 10 mg SLOW IVP Q4H PRN PRN Reason: SBP > 180 and HR < 70 Thiamine HCl 200 mg/ Sodium (Chloride) 52 mls @ 100 mls/hr IVPB Q12HR [facility] Stop: 08/09/18 21:01 Last Admin: 08/09/18 08:52 Dose: 52 mls Ascorbic Acid 1,500 mg/ Sodium (Chloride) 53 mls @ 100 mls/hr IVPB Q6HR [facility] Stop: 08/09/18 18:01 Last Admin: 08/09/18 07:20 Dose: 53 mls Piperacillin Sod/Tazobactam (Sod 4.5 gm/ Sodium Chloride) 100 mls @ 200 mls/hr IVPB Q6HR [facility] Last Admin: 08/09/18 05:41 Dose: 100 mls Fentanyl Citrate 2,000 mcg/ (Sodium Chloride) 100 mls @ 0 mls/hr IV INF [facility]; Protocol Stop: 09/05/18 22:27 Last Admin: 08/08/18 22:10 Dose: 100 mls Fentanyl Citrate (Fentanyl Bolus) 250 mls @ 0 mls/hr IVPB PRN PRN PRN Reason: Breakthrough pain/agitation Stop: 09/05/18 22:27 Sodium Chloride (Normal Saline 0.9%) 1,000 mls @ 175 mls/hr IV .[id number] [facility] Last Admin: 08/09/18 05:43 Dose: 1,000 mls Lorazepam (Ativan) 2 mg SLOW IVP Q1H PRN PRN Reason: Breakthrough agitation Stop: 09/05/18 22:27 Miscellaneous Medication (Ventilator Sedation Protocol) 1 each FS ASDIR [facility] Morphine Sulfate (Morphine) 2 mg SLOW IVP Q1H PRN PRN Reason: BREAKTHROUGH PAIN/Agitation Stop: 09/05/18 22:27 Discontinue Previous Narcotic Pain Medications And Benzodiazepines 1 each FS .ONE [facility] Stop: 09/05/18 22:27 Ondansetron HCl (Zofran) 4 mg IVP Q6H PRN PRN Reason: Nausea/Vomiting Pantoprazole Sodium (Protonix) 40 mg IVP DAILY [facility] Last Admin: 08/09/18 08:51 Dose: 40 mg Propofol (Diprivan) 1,000 mg IV INF PRN; Protocol PRN Reason: TO ACHIEVE GOAL RASS Stop: 09/05/18 22:27 Propofol (Diprivan Bolus) 20 mg IV Q5MIN PRN PRN Reason: BREAKTHROUGH AGITATION Stop: 09/05/18 22:27 Sodium Chloride (Flush - Normal Saline) 10 ml IVF Q12HR [facility] Last Admin: 08/09/18 08:52 Dose: 10 ml Sodium Chloride (Flush - Normal Saline) 10 ml IVF PRN PRN PRN Reason: Saline Flush Sodium Chloride ([place] Nasal [place] 0.65%) 0 ml EA NARE QIDPRN PRN PRN Reason: Nasal Congestion
--- NOTE | 2018-08-09 13:13 | PRG ---
DATE OF SERVICE: 08/09/2018 SUBJECTIVE: Dee Monroy is doing well today. Yesterday, she underwent laparotomy, abdominal washout, and colostomy formation. Today, she is doing well. She opens her eyes, is interactive with her surroundings and appropriately follows commands. OBJECTIVE: VITAL SIGNS: Temperature 99 degrees, blood pressure 129/58, and heart rate 108. Chest tube drainage 250 mL per 24 hours. Right lower quadrant SRAVAN drain 450 and other SRAVAN drain 515, serosanguineous to slightly cloudy. Wound VAC 450 mL since input. Urine output 1050 per 24 hours. LUNGS: Clear to auscultation. CARDIAC: Regular rate and rhythm without murmur or gallop. ABDOMEN: Soft. Postop tenderness. Colostomy healthy. EXTREMITIES: Unremarkable. LABORATORY DATA: Cultures, gram-negative inez and Streptococcus from the necrotizing fasciitis. Chest tube drainage culture, no growth to date. White count 20,000 and hemoglobin 10.5. Sodium 141, potassium 3.1, chloride 116, carbon dioxide 13, creatinine 0.55, GFR greater than 90, and bicarb 11.7. The pCO2 is 23 and pO2 is 134. ASSESSMENT AND PLAN: 1. Sepsis, necrotizing fasciitis. Wound vacuum-assisted closure in place, left flank. Abdomen has been washed out and closed. Colostomy is healthy. The patient to continue n.p.o. and intravenous fluids. Supportive care. 2. Respiratory failure. Continue ventilator. She may not be weanable today. 3. Chest tube in place. Continue to suction. Job ID: [id number]
--- NOTE | 2018-08-09 15:16 | PRG ---
DATE OF SERVICE: 08/09/2018 SUBJECTIVE: Ms. Monroy remains mechanically ventilated. OBJECTIVE: VITAL SIGNS: She is afebrile. Heart rate in the 50s to 60s and blood pressure 149/81. Intake and output is negative 94 mL. LUNGS: Clear. HEART: Regular rhythm. ABDOMEN: Soft and distended. EXTREMITIES: Without edema. LABORATORY DATA: White count is 8.0, hemoglobin 10.8, and platelets 366. A pH of 7.35, CO2 of 55, and pO2 of 87. Electrolytes are normal. Creatinine is 0.7. IMPRESSION AND PLAN: 1. Status post laparotomy for retroperitoneal abscess, most likely from perforated diverticulitis. 2. Respiratory failure. I do not think she is at a point where we can successfully wean her from mechanical ventilation. We will continue critical care management. Critical care time 30 minutes. Job ID: [id number]
[2018-08-09] MEDS: Sodium Chloride 0.45% 1,000 ML IV SCH (15:38)
[2018-08-10] MEDS: Piperacillin/Tazobactam 4.5 GM in Sodium Chloride 0.9% 100 ML IVPB SCH ×3 (00:34→12:05)
[2018-08-10 05:16] LABS: Hemoglobin 11.2 g/dL (12.0-16.0); Mean Corpuscular Hemoglobin 26.5 pg (27.0-31.0); Mean Corpuscular Volume 82.8 fL (78.0-98.0); Mean Platelet Volume 8.2 fL (7.4-10.4); Platelet Count 170 thou/uL (130-400); Red Blood Cell (RBC) Count 4.23 mill/uL (4.20-5.40); White Blood Cell (WBC) Count 22.5 thou/uL (4.8-10.8)
[2018-08-10 05:23] LABS: Anion Gap 13 mmol/L (10-20); BUN (Urea Nitrogen) 10 mg/dL (9.8-20.1); Calc. Creatinine Clearance 100 mL/min (70-130); Calcium 7.3 mg/dL (7.8-10.44); Carbon Dioxide 15 mmol/L (23-31); Chloride 118 mmol/L (98-107); Estimated GFR-MDRD Greater than 90; Glucose 77 mg/dL (83-110); Potassium 3.2 mmol/L (3.5-5.1); Sodium 143 mmol/L (136-145)
[2018-08-10 05:38] LABS: Band 27 % (5-11); Lymphocytes 2 % (21-51); MDiff Complete? YES; Monocytes 2 % (0-10); Neutrophil 69 % (42-75)
[2018-08-10] MEDS ORDERED: Potassium Chloride 40 MEQ in Premix Bag 1 BAG IVPB SCH (07:15)
[2018-08-10 07:25] LABS: Actual Bicarbonate (HCO3a) 14.3 mEq/L (22-28); Base Excess (BEa) -9.6 mEq/L (-2.0 to +3.0); CO2 Tension 26.1 mmHg (35.0-45.0); Calcium, Ionized 1.12 mmol/L (1.12-1.30); Carboxyhemoglobin (COHb) 1.7 gm% (0.0-3.0); Hemoglobin (Hb) 12.6 g/dL (12.0-16.0); O2 Tension (PaO2) 71.6 mmHg (> 60.0); pH, Arterial 7.36 (7.35-7.45)
[2018-08-10 07:26] LABS: ALV-art Gradient 180.975 (0-20); Puncture Site LRA
--- NOTE | 2018-08-10 08:17 | RAD ---
AP CHEST: History: Ventilator dependent patient. Date: 08-10-18 Comparison: 08-09-18 FINDINGS: AP chest demonstrates nasogastric and endotracheal tubes to be in place. Left sided chest tube has be en placed. A right subclavian central line is in place. Cardiomegaly is seen. Pulmonary vasculature congestion is seen. Bilateral airspace opacities seen, worse on the right than the left. No evidence of pneumothorax seen . IMPRESSION: Cardiomegaly and pulmonary vascular congestion. Lines and tubes are unchanged. No significant interva l change is seen. POS: [facility]
[2018-08-10] MEDS: Sodium Chloride 0.45% 1,000 ML IV SCH ×2 (08:42→17:08)
[2018-08-10] MEDS: Pantoprazole 40 MG VIAL IVP SCH (08:43)
[2018-08-10] MEDS: Enoxaparin Sodium 40 MG/0.4 ML SYRINGE SC SCH (08:43)
[2018-08-10] MEDS: fentaNYL Citrate/PF 2,000 MCG in Sodium Chloride 0.9% 60 ML IV SCH (10:30)
--- NOTE | 2018-08-10 11:13 | PDOC.PN ---
- Subjective Encounter Start Date: 08/10/18 Encounter Start Time: 09:40 pt is on ventilator, today her right side of chest is opacified, not weanable - Objective Resuscitation Status - Order Detail: 08/05/18 13:01 Resuscitation Status Routine Resuscitation Status: FULL: Full Resuscitation MAR Reviewed: Yes Vital Signs & Weight: Vital Signs (12 hours) Temp Pulse Resp BP Pulse Ox 08/10/18 10:00 21 H 08/10/18 08:00 22 H 97 08/10/18 07:00 98.0 F 08/10/18 06:58 110 H 179/70 H 08/10/18 06:54 110 H 23 H 98 08/10/18 06:00 18 08/10/18 04:01 111 H 159/65 H 08/10/18 04:00 98.5 F 19 08/10/18 02:00 16 08/10/18 01:50 108 H 08/10/18 00:00 99.1 F 20 Weight Admit Weight 164 lb 0.383 oz Weight 161 lb 9.581 oz Most Recent Monitor Data Heart Rate from ECG 112 NIBP 156/67 NIBP BP-Mean 96 Respiration from ECG 1 SpO2 98 I&O: 08/09/18 08/10/18 08/11/18 06:59 06:59 06:59 Intake Total 3322 3298.9 152 Output Total 3015 2745 300 Balance 307 553.9 -148 Result Diagrams: 08/10/18 04:15 08/10/18 04:15 Radiology Reviewed by me: Yes (chest xray reviwed) EKG Reviewed by me: Yes (tachycardia) Phys Exam - Physical Examination Constitutional: NAD on vent HEENT: PERRLA, sclera anicteric OG and ET in place Neck: no nodes, supple right sided coarse sound left side chest tube Cardiovascular: RRR, no significant murmur, no rub colostomy on left side, 2 SRAVAN drain, midline wound vac, Musculoskeletal: no edema, pulses present intubated so unable to assess Lymphatic: no nodes Skin: no rash, normal turgor Dx/Plan (1) Acute respiratory failure Code(s): J96.00 - ACUTE RESPIRATORY FAILURE, UNSP W HYPOXIA OR HYPERCAPNIA Status: Acute Qualifiers: Respiratory failure complication: hypoxia Qualified Code(s): J96.01 - Acute respiratory failure with hypoxia (2) S/P laparotomy Status: Acute Comment: for perforated colon now with colostomy, wound closed with wound vac (3) S/P chest tube placement Code(s): Z93.8 - OTHER ARTIFICIAL OPENING STATUS Status: Acute Comment: for air in mediastinum and chest (4) Community acquired bacterial pneumonia Code(s): J15.9 - UNSPECIFIED BACTERIAL PNEUMONIA Status: Acute (5) Demand ischemia of myocardium Code(s): I24.8 - OTHER FORMS OF ACUTE ISCHEMIC HEART DISEASE Status: Acute (6) Elevated brain natriuretic peptide (BNP) level Code(s): R79.89 - OTHER SPECIFIED ABNORMAL FINDINGS OF BLOOD CHEMISTRY Status : Acute (7) Encephalopathy in sepsis Code(s): G93.41 - METABOLIC ENCEPHALOPATHY Status: Acute Comment: as well as due to metabolic factors (8) High anion gap metabolic acidosis Code(s): E87.2 - ACIDOSIS Status: Acute (9) Hypomagnesemia Code(s): E83.42 - HYPOMAGNESEMIA Status: Acute (10) Hyponatremia Code(s): E87.1 - HYPO-OSMOLALITY AND HYPONATREMIA Status: Acute (11) Lactic acidosis Code(s): E87.2 - ACIDOSIS Status: Acute (12) Sepsis associated hypotension Code(s): A41.9 - SEPSIS, UNSPECIFIED ORGANISM; I95.9 - HYPOTENSION, UNSPECIFIED Status: Acute (13) Sepsis with acute organ dysfunction Code(s): A41.9 - SEPSIS, UNSPECIFIED ORGANISM; R65.20 - SEVERE SEPSIS WITHOUT SEPTIC SHOCK Status: Acute (14) UTI (urinary tract infection) Status: Acute (15) Anemia of chronic disease Code(s): D63.8 - ANEMIA IN OTHER CHRONIC DISEASES CLASSIFIED ELSEWHERE Status : Chronic Comment: with microcytosis (16) Anxiety and depression Code(s): F41.9 - ANXIETY DISORDER, UNSPECIFIED; F32.9 - MAJOR DEPRESSIVE DISORDER, SINGLE EPISODE, UNSPECIFIED Status: Chronic (17) Dyslipidemia Code(s): E78.5 - HYPERLIPIDEMIA, UNSPECIFIED Status: Chronic - Plan cont current plan of care, continue antibiotics, respiratory therapy * she is not weanable * continue post operative wound care * medication reviewed as below * symptomatic treatment * condition still critical. * continue zosyn Review of Systems - Review of Systems Other: unable to review due to intubated status - Medications/Allergies Allergies/Adverse Reactions: Allergies Allergy/AdvReac Type Severity Reaction Status Date / Time Sulfa (Sulfonamide Allergy Verified 08/05/18 15:43 Antibiotics) Medications: Current Medications Albuterol/Ipratropium (Duoneb) 3 ml NEB [id number] PRN PRN Reason: SOB &/or Wheezing Albuterol/Ipratropium (Duoneb) 3 ml NEB [id number] [facility] Last Admin: 08/10/18 06:54 Dose: 3 ml Artificial Tears (Tears Renewed 15ml Bottle) 2 drop EA EYE PRN PRN PRN Reason: Dry Eyes Enoxaparin Sodium (Lovenox) 40 mg SC 0900 [facility] Last Admin: 08/10/18 08:43 Dose: 40 mg Hydralazine HCl (Apresoline) 10 mg SLOW IVP Q4H PRN PRN Reason: SBP > 180 and HR < 70 Piperacillin Sod/Tazobactam (Sod 4.5 gm/ Sodium Chloride) 100 mls @ 200 mls/hr IVPB Q6HR [facility] Last Admin: 08/10/18 05:42 Dose: 100 mls Fentanyl Citrate 2,000 mcg/ (Sodium Chloride) 100 mls @ 0 mls/hr IV INF [facility]; Protocol Stop: 09/05/18 22:27 Last Admin: 08/10/18 10:30 Dose: 100 mls Fentanyl Citrate (Fentanyl Bolus) 250 mls @ 0 mls/hr IVPB PRN PRN PRN Reason: Breakthrough pain/agitation Stop: 09/05/18 22:27 Sodium Chloride (1/2 Normal Saline) 1,000 mls @ 75 mls/hr IV .[id number] [facility] Last Admin: 08/10/18 08:42 Dose: 1,000 mls Potassium Chloride 40 meq/ (Device) 100 mls @ 25 mls/hr IVPB NOW [facility] Stop: 08/10/18 12:00 Last Admin: 08/10/18 08:58 Dose: 100 mls Lorazepam (Ativan) 2 mg SLOW IVP Q1H PRN PRN Reason: Breakthrough agitation Stop: 09/05/18 22:27 Miscellaneous Medication (Ventilator Sedation Protocol) 1 each FS ASDIR [facility] Morphine Sulfate (Morphine) 2 mg SLOW IVP Q1H PRN PRN Reason: BREAKTHROUGH PAIN/Agitation Stop: 09/05/18 22:27 Discontinue Previous Narcotic Pain Medications And Benzodiazepines 1 each FS .ONE [facility] Stop: 09/05/18 22:27 Ondansetron HCl (Zofran) 4 mg IVP Q6H PRN PRN Reason: Nausea/Vomiting Pantoprazole Sodium (Protonix) 40 mg IVP DAILY [facility] Last Admin: 08/10/18 08:43 Dose: 40 mg Propofol (Diprivan) 1,000 mg IV INF PRN; Protocol PRN Reason: TO ACHIEVE GOAL RASS Stop: 09/05/18 22:27 Propofol (Diprivan Bolus) 20 mg IV Q5MIN PRN PRN Reason: BREAKTHROUGH AGITATION Stop: 09/05/18 22:27 Sodium Chloride (Flush - Normal Saline) 10 ml IVF Q12HR [facility] Last Admin: 08/10/18 08:44 Dose: 10 ml Sodium Chloride (Flush - Normal Saline) 10 ml IVF PRN PRN PRN Reason: Saline Flush Sodium Chloride ([place] Nasal [place] 0.65%) 0 ml EA NARE QIDPRN PRN PRN Reason: Nasal Congestion
[2018-08-10] MEDS ORDERED: Dextrose 50% Abboject 50 ML SYRINGE ONE (14:55)
[2018-08-10] MEDS ORDERED: PROPOFOL 20 ML ONE (14:56)
[2018-08-10] MEDS: Meropenem 2 GM, Admixture Fee 1 EACH in Sodium Chloride 0.9% 100 ML IVPB SCH ×2 (16:25→23:55)
[2018-08-10] MEDS: Micafungin 100 MG in Sodium Chloride 0.9% 100 ML IVPB SCH (16:26)
--- NOTE | 2018-08-10 17:43 | PRG ---
DATE OF SERVICE: 08/10/2018 SUBJECTIVE: Ms. Monroy will awake and move all her extremities to command. She nods to questions. OBJECTIVE: VITAL SIGNS: She is afebrile, respiratory rates in the 20s, blood pressures for most of the day have been in the 130s to 150s. Heart rates in the 1-teens. LUNGS: Clear anteriorly. HEART: Regular rhythm. ABDOMEN: Soft and nontender. EXTREMITIES: Without edema. LABORATORY DATA: White count 22.5, hemoglobin 11.2. She only has 27% bands on her peripheral smear compared to 65% bands 2 days ago. Electrolytes; sodium 143, potassium 3.2, chloride 118, bicarb 15, BUN 10, creatinine 0.5. Chest radiograph shows an alveolar infiltrate with air bronchograms in the right chest. IMPRESSION: ? asymmetric acute respiratory distress syndrome versus an aspiration pneumonia. I recommended bronchoscopy for cultures and will change her antibiotics. She is not weanable at this point in time with a changing radiograph, possible changing lung compliance. I met with family and answered all their questions. Critical care time, 30 minutes independent of the procedure performed. Job ID: [id number] MTDD
[2018-08-10] MEDS: Latanoprost 0.005% Ophth Soln 2.5 ml Bottle EA EYE SCH (20:56)
[2018-08-10] MEDS: Timolol 0.5% Ophth Soln 5 ml Bottle EA EYE SCH (20:57)
[2018-08-11] MEDS: Sodium Chloride 0.45% 1,000 ML IV SCH (03:12)
[2018-08-11 05:11] LABS: Anion Gap 14 mmol/L (10-20); BUN (Urea Nitrogen) 13 mg/dL (9.8-20.1); Calc. Creatinine Clearance 103 mL/min (70-130); Calcium 7.2 mg/dL (7.8-10.44); Carbon Dioxide 15 mmol/L (23-31); Chloride 117 mmol/L (98-107); Estimated GFR-MDRD Greater than 90; Glucose 73 mg/dL (83-110); Magnesium 1.4 mg/dL (1.6-2.6); Potassium 3.5 mmol/L (3.5-5.1); Sodium 142 mmol/L (136-145)
[2018-08-11 05:12] LABS: Anisocytosis SLIGHT = 6-15 cells (100X) (0-5/hpf); Band 15 % (5-11); Hemoglobin 11.3 g/dL (12.0-16.0); Hypochromia SLIGHT = 6-15 cells (100X) (0-5/hpf); Lymphocytes 2 % (21-51); MDiff Complete? YES; Mean Corpuscular Hemoglobin 26.4 pg (27.0-31.0); Mean Corpuscular Volume 82.5 fL (78.0-98.0); Mean Platelet Volume 8.2 fL (7.4-10.4); Monocytes 2 % (0-10); Neutrophil 81 % (42-75); Platelet Count 165 thou/uL (130-400); RBC Distribution Width 19.9 % (11.5-14.5); Red Blood Cell (RBC) Count 4.28 mill/uL (4.20-5.40); White Blood Cell (WBC) Count 25.2 thou/uL (4.8-10.8)
--- NOTE | 2018-08-11 06:31 | PRG ---
DATE OF SERVICE: 08/10/2018 SUBJECTIVE: Ms. Monroy is doing well today. She presented with diverticulitis necessitans, necrotizing fasciitis, and left pleural effusion. She remains in ICU on the ventilator. OBJECTIVE: VITAL SIGNS: Pulse 110, blood pressure 137/63, and respiratory rate 28. LUNGS: Coarse breath sounds, right, throughout. Rhonchi throughout. Left lung maddox are essentially clear. No wheezing. CARDIAC: Regular rate and rhythm. ABDOMEN: Soft. Positive bowel sounds. Colostomy is healthy. LABORATORY DATA: The patient's chest tube for 24 hours. Gastric drainage 400 mL through NG tube for 24 hours. SRAVAN drains; left 60; right 510 mL for 24 hours. It was serosanguineous and slightly cloudy. Urine output 1045 for 24 hours. White count 22,000, hemoglobin 11.2. Basic metabolic profile is unremarkable. Chest x-ray reveals diffuse infiltrates at right lung field. ASSESSMENT AND PLAN: 1. Infiltrates, right lung. Coarse breath sounds. Treatment per Dr. Perez. 2. Left tube thoracostomy. Continues to drain fluid. Continue while she is on the ventilator. 3. Status post laparotomy, colon resection for diverticulitis necessitans with irrigation of the retroperitoneum, drains placed. Debridement of skin and subcutaneous tissue, necrotizing fasciitis, left flank. Continue supportive care. 4. Respiratory failure per Dr. Perez. She is not weanable to this point. Job ID: [id number]
[2018-08-11] MEDS ORDERED: Magnesium Sulfate 3 GM in Sodium Chloride 0.9% 100 ML IVPB SCH (07:00)
[2018-08-11 07:07] LABS: Actual Bicarbonate (HCO3a) 17.1 mEq/L (22-28); Base Excess (BEa) -6.9 mEq/L (-2.0 to +3.0); CO2 Tension 29.7 mmHg (35.0-45.0); Calcium, Ionized 1.12 mmol/L (1.12-1.30); Carboxyhemoglobin (COHb) 1.7 gm% (0.0-3.0); Hemoglobin (Hb) 11.8 g/dL (12.0-16.0); Potassium - ABG Lab 3.38 mmol/L (3.70-5.30); pH, Arterial 7.38 (7.35-7.45)
[2018-08-11 07:08] LABS: Puncture Site RRA
[2018-08-11 07:09] LABS: ALV-art Gradient 183.075 (0-20)
--- NOTE | 2018-08-11 08:29 | PRG ---
DATE OF SERVICE: 08/11/2018 SUBJECTIVE: Ms. Monroy is in the ICU on the ventilator. Chest x-ray this morning revealed diffuse infiltrates. The patient opens eyes to voice. She is sedated on the ventilator. OBJECTIVE: VITAL SIGNS: Blood pressure 157/66, heart rate 100. Out of her chest tube, left has been 320 mL in the last 24 hours. Gastric drainage, gastric tube 200 mL in the last 24 hours. Left abdominal SRAVAN 20 mL, right abdominal SRAVAN 395 mL. Wound VAC 70 mL, output [place] 865 mL. LUNGS: Revealed that she has coarse breath sounds and rhonchi on the right. Left side is clear. There is no wheezing. CARDIAC: Regular rate and rhythm. ABDOMEN: Soft. Colostomy healthy. Wound VAC midline. Drains, serosanguineous perhaps slightly cloudy. EXTREMITIES: Unremarkable. LABORATORY DATA: This morning, her white count is 25,000 with 15% bands. Hemoglobin of 11.3. Sodium of 142, potassium of 3.5, chloride 117, carbon dioxide 15, BUN 13, creatinine 0.46, GFR greater than 90. Her magnesium is slightly low at 1.4. ASSESSMENT AND PLAN: 1. Respiratory failure with right lung acute respiratory distress syndrome versus pneumonia. Continue intravenous antibiotics. Continue ventilation. 2. Mild acidosis. 3. Low magnesium. Replace. 4. Left SRAVAN drain minimal output. We will remove today and leave the right SRAVAN. 5. Necrotizing fasciitis, left flank, few wounds with wound care. 6. Status post laparotomy, colon resection. Pathology reveals diverticulitis, acute on chronic perforation. No malignancy. Job ID: [id number]
[2018-08-11] MEDS: Meropenem 2 GM, Admixture Fee 1 EACH in Sodium Chloride 0.9% 100 ML IVPB SCH ×2 (08:46→16:26)
--- NOTE | 2018-08-11 08:50 | RAD ---
AP CHEST: History: Ventilator dependent patient. Date: 08-11-18 Comparison: 08-10-18 FINDINGS: AP chest demonstrates nasogastric and endotracheal tubes to be in good position. A right subclavian c entral line is seen. Again, left sided chest tube is seen. Extensive bilateral pulmonary vascular congestion is seen. Areas of airspace opacity seen in much of the right lung and left lung base, unchanged since the prev ious exam. IMPRESSION: Stable AP view of the chest with right lung and left lung base areas of airspace opacities. Lines and tubes are unchanged. POS: [facility]
--- NOTE | 2018-08-11 08:52 | OP ---
DATE OF PROCEDURE: 08/10/2018 PROCEDURE PERFORMED: Fiberoptic bronchoscopy. INDICATION Infiltrate on the right. The patient was sedated with propofol. Once the patient was sedated, the bronchoscope was introduced via endotracheal tube and passed down into the trachea. The left mainstem bronchus had thick secretions in it, these were suctioned clear. The right mainstem bronchus also had thick secretions. The right middle lobe was entered and lavaged. Suctioned secretions were then sent for Gram-stain and culture. She tolerated the procedure well and no immediate complications. There was no hypoxemia during the procedure. Job ID: [id number]
[2018-08-11] MEDS: Pantoprazole 40 MG VIAL IVP SCH (09:06)
[2018-08-11] MEDS: Enoxaparin Sodium 40 MG/0.4 ML SYRINGE SC SCH (09:06)
[2018-08-11] MEDS: Timolol 0.5% Ophth Soln 5 ml Bottle EA EYE SCH ×2 (09:14→22:23)
[2018-08-11 09:18] LABS: Actual Bicarbonate (HCO3a) 18.4 mEq/L (22-28); Analyzer IN Cardio OR; Base Excess (BEa) -6.6 mEq/L (-2.0 to +3.0); Calcium, Ionized 0.98 mmol/L (1.12-1.30); Carboxyhemoglobin (COHb) 1.6 gm% (0.0-3.0); Hemoglobin (Hb) 6.3 g/dL (12.0-16.0); O2 Tension (PaO2) 274.1 mmHg (> 60.0); Potassium - ABG Lab 3.03 mmol/L (3.70-5.30); pH, Arterial 7.35 (7.35-7.45)
[2018-08-11 09:18] LABS: Actual Bicarbonate (HCO3a) 18.3 mEq/L (22-28); Analyzer IN Cardio OR; Base Excess (BEa) -6.3 mEq/L (-2.0 to +3.0); CO2 Tension 32.5 mmHg (35.0-45.0); Hemoglobin (Hb) 7.2 g/dL (12.0-16.0); O2 Tension (PaO2) 430.5 mmHg (> 60.0); Potassium - ABG Lab 2.85 mmol/L (3.70-5.30); pH, Arterial 7.37 (7.35-7.45)
[2018-08-11 09:34] LABS: Puncture Site ALINE
[2018-08-11 09:34] LABS: Puncture Site ALINE
[2018-08-11] MEDS ORDERED: Sodium Chloride 0.45% 1,000 ML IV SCH (11:31)
--- NOTE | 2018-08-11 12:14 | PDOC.PN ---
- Subjective Encounter Start Date: 08/11/18 Encounter Start Time: 07:15 Patient seen and examined. No overnight events, pt is on vent - Objective Resuscitation Status - Order Detail: 08/05/18 13:01 Resuscitation Status Routine Resuscitation Status: FULL: Full Resuscitation MAR Reviewed: Yes Vital Signs & Weight: Vital Signs (12 hours) Temp Pulse Resp BP Pulse Ox 08/11/18 11:58 100 08/11/18 10:00 19 08/11/18 09:52 99 08/11/18 09:14 105 H 153/65 H 08/11/18 08:00 98.3 F 22 H 93 L 08/11/18 07:00 105 H 08/11/18 06:00 21 H 08/11/18 04:00 99.0 F 22 H 08/11/18 02:00 23 H Weight Admit Weight 164 lb 0.383 oz Weight 163 lb 10.711 oz Most Recent Monitor Data Heart Rate from ECG 99 NIBP 158/61 NIBP BP-Mean 93 Respiration from ECG 18 SpO2 92 I&O: 08/10/18 08/11/18 08/12/18 06:59 06:59 06:59 Intake Total 3298.9 2130.9 100 Output Total 2745 1870 315 Balance 553.9 260.9 -215 Result Diagrams: 08/11/18 04:25 08/11/18 04:25 Radiology Reviewed by me: Yes (chest xray reviewed) EKG Reviewed by me: Yes (nsr) Phys Exam - Physical Examination Constitutional: NAD HEENT: PERRLA, moist MMs, sclera anicteric Neck: no JVD, supple Respiratory: no wheezing, no rales, no rhonchi Cardiovascular: RRR, no significant murmur, no rub central line+ chest tube+ Gastrointestinal: soft, no distention wound vac in problem, colostomy+ Musculoskeletal: no edema, pulses present Neurological: non-focal, normal sensation Lymphatic: no nodes Psychiatric: normal affect Skin: no rash, normal turgor Dx/Plan (1) Acute respiratory failure Code(s): J96.00 - ACUTE RESPIRATORY FAILURE, UNSP W HYPOXIA OR HYPERCAPNIA Status: Acute Qualifiers: Respiratory failure complication: hypoxia Qualified Code(s): J96.01 - Acute respiratory failure with hypoxia (2) S/P laparotomy Status: Acute Comment: for perforated colon now with colostomy, wound closed with wound vac (3) S/P chest tube placement Code(s): Z93.8 - OTHER ARTIFICIAL OPENING STATUS Status: Acute Comment: for air in mediastinum and chest (4) Community acquired bacterial pneumonia Code(s): J15.9 - UNSPECIFIED BACTERIAL PNEUMONIA Status: Acute (5) Demand ischemia of myocardium Code(s): I24.8 - OTHER FORMS OF ACUTE ISCHEMIC HEART DISEASE Status: Acute (6) Elevated brain natriuretic peptide (BNP) level Code(s): R79.89 - OTHER SPECIFIED ABNORMAL FINDINGS OF BLOOD CHEMISTRY Status : Acute (7) Encephalopathy in sepsis Code(s): G93.41 - METABOLIC ENCEPHALOPATHY Status: Acute Comment: as well as due to metabolic factors (8) High anion gap metabolic acidosis Code(s): E87.2 - ACIDOSIS Status: Acute (9) Hypomagnesemia Code(s): E83.42 - HYPOMAGNESEMIA Status: Acute (10) Hyponatremia Code(s): E87.1 - HYPO-OSMOLALITY AND HYPONATREMIA Status: Acute (11) Lactic acidosis Code(s): E87.2 - ACIDOSIS Status: Acute (12) Sepsis associated hypotension Code(s): A41.9 - SEPSIS, UNSPECIFIED ORGANISM; I95.9 - HYPOTENSION, UNSPECIFIED Status: Acute (13) Sepsis with acute organ dysfunction Code(s): A41.9 - SEPSIS, UNSPECIFIED ORGANISM; R65.20 - SEVERE SEPSIS WITHOUT SEPTIC SHOCK Status: Acute (14) UTI (urinary tract infection) Status: Acute (15) Anemia of chronic disease Code(s): D63.8 - ANEMIA IN OTHER CHRONIC DISEASES CLASSIFIED ELSEWHERE Status : Chronic Comment: with microcytosis (16) Anxiety and depression Code(s): F41.9 - ANXIETY DISORDER, UNSPECIFIED; F32.9 - MAJOR DEPRESSIVE DISORDER, SINGLE EPISODE, UNSPECIFIED Status: Chronic (17) Dyslipidemia Code(s): E78.5 - HYPERLIPIDEMIA, UNSPECIFIED Status: Chronic - Plan cont current plan of care, continue antibiotics, respiratory therapy * medication reviewed as below * symptomatic treatment. * continue wound care * vent as per pulmonary * continue post operative care as per surgeon * micafungin started today * Review of Systems - Review of Systems Other: unable to review due to intubated status - Medications/Allergies Allergies/Adverse Reactions: Allergies Allergy/AdvReac Type Severity Reaction Status Date / Time Sulfa (Sulfonamide Allergy Verified 08/05/18 15:43 Antibiotics) Medications: Current Medications Albuterol/Ipratropium (Duoneb) 3 ml NEB [id number] PRN PRN Reason: SOB &/or Wheezing Albuterol/Ipratropium (Duoneb) 3 ml NEB [id number] [facility] Artificial Tears (Tears Renewed 15ml Bottle) 2 drop EA EYE PRN PRN PRN Reason: Dry Eyes Enoxaparin Sodium (Lovenox) 40 mg SC 0900 [facility] Last Admin: 08/11/18 09:06 Dose: 40 mg Hydralazine HCl (Apresoline) 10 mg SLOW IVP Q4H PRN PRN Reason: SBP > 180 and HR < 70 Fentanyl Citrate 2,000 mcg/ (Sodium Chloride) 100 mls @ 0 mls/hr IV INF [facility]; Protocol Stop: 09/05/18 22:27 Last Admin: 08/10/18 10:30 Dose: 100 mls Fentanyl Citrate (Fentanyl Bolus) 250 mls @ 0 mls/hr IVPB PRN PRN PRN Reason: Breakthrough pain/agitation Stop: 09/05/18 22:27 Meropenem 2 gm/ Miscellaneous Medication 1 each/ Sodium Chloride 100 mls @ 0 mls/hr IVPB 0800,1600,2359 [facility] Last Admin: 08/11/18 08:46 Dose: 100 mls Micafungin Sodium 100 mg/ (Sodium Chloride) 100 mls @ 100 mls/hr IVPB Q24HR [facility] Last Admin: 08/11/18 08:41 Dose: 100 mls Sodium Chloride (1/2 Normal Saline) 1,000 mls @ 0 mls/hr IV .Q0M [facility] Latanoprost (Xalatan 0.005% Ophth Soln) 1 drop EA EYE HS [facility] Last Admin: 08/10/18 20:56 Dose: 1 drp Lorazepam (Ativan) 2 mg SLOW IVP Q1H PRN PRN Reason: Breakthrough agitation Stop: 09/05/18 22:27 Miscellaneous Medication (Ventilator Sedation Protocol) 1 each FS ASDIR [facility] Morphine Sulfate (Morphine) 2 mg SLOW IVP Q1H PRN PRN Reason: BREAKTHROUGH PAIN/Agitation Stop: 09/05/18 22:27 Discontinue Previous Narcotic Pain Medications And Benzodiazepines 1 each FS .ONE [facility] Stop: 09/05/18 22:27 Ondansetron HCl (Zofran) 4 mg IVP Q6H PRN PRN Reason: Nausea/Vomiting Pantoprazole Sodium (Protonix) 40 mg IVP DAILY [facility] Last Admin: 08/11/18 09:06 Dose: 40 mg Propofol (Diprivan) 1,000 mg IV INF PRN; Protocol PRN Reason: TO ACHIEVE GOAL RASS Stop: 09/05/18 22:27 Propofol (Diprivan Bolus) 20 mg IV Q5MIN PRN PRN Reason: BREAKTHROUGH AGITATION Stop: 09/05/18 22:27 Sodium Chloride (Flush - Normal Saline) 10 ml IVF Q12HR [facility] Last Admin: 08/11/18 09:14 Dose: 10 ml Sodium Chloride (Flush - Normal Saline) 10 ml IVF PRN PRN PRN Reason: Saline Flush Sodium Chloride ([place] Nasal [place] 0.65%) 0 ml EA NARE QIDPRN PRN PRN Reason: Nasal Congestion Sodium Chloride (Flush - Normal Saline) 10 ml IV DAILY [facility] Last Admin: 08/11/18 09:14 Dose: 10 ml Timolol Maleate (Timoptic 0.5% Oph Soln) 1 drop EA EYE BID [facility] Last Admin: 08/11/18 09:14 Dose: 1 drp
--- NOTE | 2018-08-11 14:59 | PRG ---
DATE OF SERVICE: 08/11/2018 SUBJECTIVE: Ms. Monroy is clinically unchanged. OBJECTIVE: VITAL SIGNS: Respiratory rate in the 20s, heart rate 99 to 102, blood pressure stable, oximetry is 92%. LUNGS: Remarkable for coarse rhonchi diffusely. HEART: Regular rhythm. S1 and S2 are normal. ABDOMEN: Soft and nontender without rigidity. EXTREMITIES: Without asymmetry. LABORATORY DATA: White count 25.2, hemoglobin 11.3, 15% bands on her peripheral smear today. This is an improvement. Sodium 142, potassium 3.5, chloride 117, bicarb 15, BUN 13, and creatinine 0.46. Blood gas, pH 7.34, CO2 of 29, pO2 of 65. IMPRESSION: 1. Respiratory failure associated with laparotomy after free air was discovered after placement of a central line. She ended up having a necrotizing retroperitoneal infectious process, for which she had two abdominal washouts and now is on broad antimicrobial therapy. 2. Pneumonia, possibly aspiration mediated, leading up to admission. I met with the daughter and answered all of her questions. At this point in time, I do not feel comfortable attempting weaning from mechanical ventilation until we have better handle on her secretions. Critical care time 30 minutes. Job ID: [id number] MTDD
[2018-08-11] MEDS: Micafungin 100 MG in Sodium Chloride 0.9% 100 ML IVPB SCH (17:30)
[2018-08-11] MEDS: Latanoprost 0.005% Ophth Soln 2.5 ml Bottle EA EYE SCH (22:24)
[2018-08-11] MEDS: fentaNYL Citrate/PF 2,000 MCG in Sodium Chloride 0.9% 60 ML IV SCH (22:29)
[2018-08-12] MEDS: Meropenem 2 GM, Admixture Fee 1 EACH in Sodium Chloride 0.9% 100 ML IVPB SCH ×3 (00:43→15:35)
[2018-08-12 06:13] LABS: Anion Gap 13 mmol/L (10-20); BUN (Urea Nitrogen) 16 mg/dL (9.8-20.1); Calc. Creatinine Clearance 100 mL/min (70-130); Calcium 7.3 mg/dL (7.8-10.44); Carbon Dioxide 18 mmol/L (23-31); Chloride 116 mmol/L (98-107); Estimated GFR-MDRD Greater than 90; Glucose 101 mg/dL (83-110); Magnesium 1.8 mg/dL (1.6-2.6); Potassium 3.5 mmol/L (3.5-5.1); Sodium 143 mmol/L (136-145)
[2018-08-12 06:45] LABS: Anisocytosis MODERATE=16-30 cells (100X) (0-5/hpf); Band 25 % (5-11); Hemoglobin 11.8 g/dL (12.0-16.0); Lymphocytes 7 % (21-51); MDiff Complete? YES; Mean Corpuscular HGB CONC 31.1 g/dL (32.0-36.0); Mean Corpuscular Hemoglobin 25.7 pg (27.0-31.0); Mean Corpuscular Volume 82.8 fL (78.0-98.0); Mean Platelet Volume 8.2 fL (7.4-10.4); Monocytes 3 % (0-10); Neutrophil 65 % (42-75); Platelet Count 186 thou/uL (130-400); RBC Distribution Width 20.3 % (11.5-14.5); Target Cells SLIGHT = 2-5 cells (100X) (0-1/hpf); White Blood Cell (WBC) Count 28.2 thou/uL (4.8-10.8)
[2018-08-12 07:22] LABS: Actual Bicarbonate (HCO3a) 20.2 mEq/L (22-28); Base Excess (BEa) -3.8 mEq/L (-2.0 to +3.0); CO2 Tension 33.2 mmHg (35.0-45.0); Calcium, Ionized 1.09 mmol/L (1.12-1.30); Carboxyhemoglobin (COHb) 1.6 gm% (0.0-3.0); Hemoglobin (Hb) 12.5 g/dL (12.0-16.0); O2 Tension (PaO2) 64.6 mmHg (> 60.0); Potassium - ABG Lab 3.41 mmol/L (3.70-5.30)
[2018-08-12 07:24] LABS: Puncture Site RRA
[2018-08-12] MEDS: Pantoprazole 40 MG VIAL IVP SCH (09:32)
[2018-08-12] MEDS: Enoxaparin Sodium 40 MG/0.4 ML SYRINGE SC SCH (09:32)
[2018-08-12] MEDS: Timolol 0.5% Ophth Soln 5 ml Bottle EA EYE SCH ×2 (09:33→20:09)
--- NOTE | 2018-08-12 12:26 | PDOC.PN ---
- Subjective Encounter Start Date: 08/12/18 Encounter Start Time: 09:35 Patient seen and examined. No overnight events, today pt was arousable on vent - Objective Resuscitation Status - Order Detail: 08/05/18 13:01 Resuscitation Status Routine Resuscitation Status: FULL: Full Resuscitation MAR Reviewed: Yes Vital Signs & Weight: Vital Signs (12 hours) Temp Pulse Resp BP 08/12/18 10:16 108 H 08/12/18 09:33 117 H 145/66 H 08/12/18 07:08 117 H 08/12/18 06:00 27 H 08/12/18 04:00 98.6 F 22 H 08/12/18 02:19 101 H 148/72 H 08/12/18 02:00 21 H Weight Admit Weight 164 lb 0.383 oz Weight 170 lb 1.006 oz Most Recent Monitor Data Heart Rate from ECG 105 NIBP 134/60 NIBP BP-Mean 84 Respiration from ECG 23 SpO2 92 I&O: 08/11/18 08/12/18 08/13/18 06:59 06:59 06:59 Intake Total 2130.9 1368.3 21.1 Output Total 1870 2007 Balance 260.9 -639.7 21.1 Result Diagrams: 08/12/18 05:28 08/12/18 05:28 Radiology Reviewed by me: Yes (chest xray reviwed) EKG Reviewed by me: Yes (nsr) Phys Exam - Physical Examination Constitutional: NAD on vent HEENT: PERRLA, sclera anicteric Neck: no JVD, supple Respiratory: no wheezing, no rales, no rhonchi anteriorly chest tube+ Cardiovascular: RRR, no rub Gastrointestinal: soft, no distention, positive bowel sounds colostomy+, wound vac+, SRAVAN drain in place Musculoskeletal: no edema unable to assess due to intubated status Lymphatic: no nodes Skin: no rash, normal turgor Dx/Plan (1) Acute respiratory failure Code(s): J96.00 - ACUTE RESPIRATORY FAILURE, UNSP W HYPOXIA OR HYPERCAPNIA Status: Acute Qualifiers: Respiratory failure complication: hypoxia Qualified Code(s): J96.01 - Acute respiratory failure with hypoxia (2) S/P laparotomy Status: Acute Comment: for perforated colon now with colostomy, wound closed with wound vac (3) S/P chest tube placement Code(s): Z93.8 - OTHER ARTIFICIAL OPENING STATUS Status: Acute Comment: for air in mediastinum and chest (4) Community acquired bacterial pneumonia Code(s): J15.9 - UNSPECIFIED BACTERIAL PNEUMONIA Status: Acute (5) Demand ischemia of myocardium Code(s): I24.8 - OTHER FORMS OF ACUTE ISCHEMIC HEART DISEASE Status: Acute (6) Elevated brain natriuretic peptide (BNP) level Code(s): R79.89 - OTHER SPECIFIED ABNORMAL FINDINGS OF BLOOD CHEMISTRY Status : Acute (7) Encephalopathy in sepsis Code(s): G93.41 - METABOLIC ENCEPHALOPATHY Status: Acute Comment: as well as due to metabolic factors (8) High anion gap metabolic acidosis Code(s): E87.2 - ACIDOSIS Status: Acute (9) Hypomagnesemia Code(s): E83.42 - HYPOMAGNESEMIA Status: Acute (10) Hyponatremia Code(s): E87.1 - HYPO-OSMOLALITY AND HYPONATREMIA Status: Acute (11) Lactic acidosis Code(s): E87.2 - ACIDOSIS Status: Acute (12) Sepsis associated hypotension Code(s): A41.9 - SEPSIS, UNSPECIFIED ORGANISM; I95.9 - HYPOTENSION, UNSPECIFIED Status: Acute (13) Sepsis with acute organ dysfunction Code(s): A41.9 - SEPSIS, UNSPECIFIED ORGANISM; R65.20 - SEVERE SEPSIS WITHOUT SEPTIC SHOCK Status: Acute (14) UTI (urinary tract infection) Status: Acute (15) Anemia of chronic disease Code(s): D63.8 - ANEMIA IN OTHER CHRONIC DISEASES CLASSIFIED ELSEWHERE Status : Chronic Comment: with microcytosis (16) Anxiety and depression Code(s): F41.9 - ANXIETY DISORDER, UNSPECIFIED; F32.9 - MAJOR DEPRESSIVE DISORDER, SINGLE EPISODE, UNSPECIFIED Status: Chronic (17) Dyslipidemia Code(s): E78.5 - HYPERLIPIDEMIA, UNSPECIFIED Status: Chronic - Plan cont current plan of care, continue antibiotics * continue micafungin * pulmonary managing vent * post operative surgical care * medication reviewed as below * symptomatic treatment * not weanable yet as per pulmonary. Review of Systems - Review of Systems Other: unable to review due to intubates status - Medications/Allergies Allergies/Adverse Reactions: Allergies Allergy/AdvReac Type Severity Reaction Status Date / Time Sulfa (Sulfonamide Allergy Verified 08/05/18 15:43 Antibiotics) Medications: Current Medications Albuterol/Ipratropium (Duoneb) 3 ml NEB [id number] PRN PRN Reason: SOB &/or Wheezing Albuterol/Ipratropium (Duoneb) 3 ml NEB [id number] [facility] Last Admin: 08/12/18 10:16 Dose: 3 ml Artificial Tears (Tears Renewed 15ml Bottle) 2 drop EA EYE PRN PRN PRN Reason: Dry Eyes Enoxaparin Sodium (Lovenox) 40 mg SC 0900 [facility] Last Admin: 08/12/18 09:32 Dose: 40 mg Hydralazine HCl (Apresoline) 10 mg SLOW IVP Q4H PRN PRN Reason: SBP > 180 and HR < 70 Fentanyl Citrate 2,000 mcg/ (Sodium Chloride) 100 mls @ 0 mls/hr IV INF [facility]; Protocol Stop: 09/05/18 22:27 Last Admin: 08/11/18 22:29 Dose: 100 mls Fentanyl Citrate (Fentanyl Bolus) 250 mls @ 0 mls/hr IVPB PRN PRN PRN Reason: Breakthrough pain/agitation Stop: 09/05/18 22:27 Meropenem 2 gm/ Miscellaneous Medication 1 each/ Sodium Chloride 100 mls @ 0 mls/hr IVPB 0800,1600,2359 [facility] Last Admin: 08/12/18 09:32 Dose: 100 mls Micafungin Sodium 100 mg/ (Sodium Chloride) 100 mls @ 100 mls/hr IVPB Q24HR [facility] Last Admin: 08/11/18 17:30 Dose: 100 mls Sodium Chloride (1/2 Normal Saline) 1,000 mls @ 0 mls/hr IV .Q0M [facility] Latanoprost (Xalatan 0.005% [facility] Soln) 1 drop EA EYE HS [facility] Last Admin: 08/11/18 22:24 Dose: 1 drp Lorazepam (Ativan) 2 mg SLOW IVP Q1H PRN PRN Reason: Breakthrough agitation Stop: 09/05/18 22:27 Miscellaneous Medication (Ventilator Sedation Protocol) 1 each FS ASDIR [facility] Morphine Sulfate (Morphine) 2 mg SLOW IVP Q1H PRN PRN Reason: BREAKTHROUGH PAIN/Agitation Stop: 09/05/18 22:27 Discontinue Previous Narcotic Pain Medications And Benzodiazepines 1 each FS .ONE [facility] Stop: 09/05/18 22:27 Ondansetron HCl (Zofran) 4 mg IVP Q6H PRN PRN Reason: Nausea/Vomiting Pantoprazole Sodium (Protonix) 40 mg IVP DAILY [facility] Last Admin: 08/12/18 09:32 Dose: 40 mg Propofol (Diprivan) 1,000 mg IV INF PRN; Protocol PRN Reason: TO ACHIEVE GOAL RASS Stop: 09/05/18 22:27 Propofol (Diprivan Bolus) 20 mg IV Q5MIN PRN PRN Reason: BREAKTHROUGH AGITATION Stop: 09/05/18 22:27 Sodium Chloride (Flush - Normal Saline) 10 ml IVF Q12HR [facility] Last Admin: 08/12/18 09:33 Dose: 10 ml Sodium Chloride (Flush - Normal Saline) 10 ml IVF PRN PRN PRN Reason: Saline Flush Sodium Chloride ([place] Nasal [place] 0.65%) 0 ml EA NARE QIDPRN PRN PRN Reason: Nasal Congestion Sodium Chloride (Flush - Normal Saline) 10 ml IV DAILY [facility] Last Admin: 08/12/18 09:33 Dose: 10 ml Timolol Maleate (Timoptic 0.5% [facility]) 1 drop EA EYE BID [facility] Last Admin: 08/12/18 09:33 Dose: 1 drp
--- NOTE | 2018-08-12 15:04 | PRG ---
DATE OF SERVICE: 08/12/2018 SUBJECTIVE: Ms. Monroy is in ICU, ventilated, C9. She is sedated. OBJECTIVE: VITAL SIGNS: Heart rate 103, blood pressure 127/58. LUNGS: Coarse breath sounds, right. CARDIAC: Regular rate and rhythm. ABDOMEN: Soft, nondistended. Colostomy healthy. Her chest tube drainage for 24 hours has been 430, it is serous. Gastric drainage 100. She is on tube feedings 20 mL/h and tolerating them. SRAVAN drain 365 for 24 hours. The SRAVAN drain has been removed. Ostomy output, serous, 50 mL. Urine output 733 mL per 24 hours. Her white count is 28,000, hemoglobin 11.8. Sodium 143, potassium 3.5, BUN 16, and creatinine 0.48. ASSESSMENT AND PLAN: 1. Diverticulitis necessitans with necrotizing fasciitis, left flank and now continue low-rate tube feedings until better ostomy output, GI function. 2. Left tube thoracostomy. We will plan removal tomorrow as output has been small. 3. ARDS versus pneumonia, right lung. Continue ventilation. She is requiring increased FiO2 and PEEP, followed by Dr. Perez. 4. Open left flank wounds. Continue wound VAC care. 5. Open abdominal wound. Continue wound VAC care. 6. Respiratory failure. Continue vent. She is not weanable now. 7. Leukocytosis, probably due to right lung process, ARDS. Job ID: [id number]
[2018-08-12] MEDS: Micafungin 100 MG in Sodium Chloride 0.9% 100 ML IVPB SCH (15:35)
[2018-08-12] MEDS: Latanoprost 0.005% Ophth Soln 2.5 ml Bottle EA EYE SCH (20:10)
--- NOTE | 2018-08-12 20:31 | PRG ---
Critical care time 30 minutes DATE OF SERVICE: 08/12/2018 SUBJECTIVE: Dee Monroy is awakened and moved all her extremities to command. She nods weakly. OBJECTIVE: VITAL SIGNS: Blood pressure is 140/56, heart rate 73, respiratory rates in the 20s, oximetry is 90%. LUNGS: She has coarse rhonchi on the right, but her chest exam is dramatically improved compared to yesterday. HEART: Regular rhythm. S1 and S2 are normal. ABDOMEN: Soft, minimally tender. EXTREMITIES: Without edema. Intake and outputs -639. LABORATORY STUDIES: White count is 28.2, hemoglobin 11.8, and platelets 186, 000. She has 25% bands on her peripheral smear, but had 65% bands on the . Sodium 143, potassium 3.5, chloride 116, bicarb 18, BUN 16, and creatinine 0.48. Blood gas 7.40, CO2 of 33, and pO2 of 64. IMPRESSION: 1. Pneumonia, likely aspiration mediated. 2. Respiratory failure, acute. 3. Status post perforated diverticulitis with retroperitoneal abscesses, it is polymicrobial. 4. Status post placement of a chest tube given the left-sided pleural fluid on the same side as a retroperitoneal abscess. She has multiple anaerobes out of her abdominal washings. She has yeast in her bronchial washings, which are colonizers, but certainly put her at risk for yeast in her abdomen. Her antibiotic microbials were changed a couple of days ago. Her radiograph does not appear to have progression of her alveolar infiltrate on the right. We will continue current critical care. No significant changes today were made. Hopefully, we can decrease ventilatory support a little bit tomorrow. Anticipate her being mechanically ventilated for several more days given the severity of her pneumonia and her weakened state at the age of 83. Job ID: [id number] [facility]
[2018-08-13] MEDS: Meropenem 2 GM, Admixture Fee 1 EACH in Sodium Chloride 0.9% 100 ML IVPB SCH ×4 (00:44→23:31)
[2018-08-13 06:42] LABS: Actual Bicarbonate (HCO3a) 23.9 mEq/L (22-28); CO2 Tension 40.5 mmHg (35.0-45.0); Calcium, Ionized 1.11 mmol/L (1.12-1.30); Potassium - ABG Lab 3.36 mmol/L (3.70-5.30); pH, Arterial 7.39 (7.35-7.45)
[2018-08-13 07:03] LABS: ALV-art Gradient 283.525 (0-20); Puncture Site LRA
[2018-08-13] MEDS ORDERED: Labetalol HCl 100 MG/20 ML VIAL ONE (08:12)
[2018-08-13] MEDS: Enoxaparin Sodium 40 MG/0.4 ML SYRINGE SC SCH (08:21)
[2018-08-13] MEDS: Pantoprazole 40 MG VIAL IVP SCH (08:21)
[2018-08-13] MEDS: Timolol 0.5% Ophth Soln 5 ml Bottle EA EYE SCH ×2 (08:22→20:25)
[2018-08-13] MEDS: fentaNYL Citrate/PF 2,000 MCG in Sodium Chloride 0.9% 60 ML IV SCH (10:38)
--- NOTE | 2018-08-13 11:30 | PDOC.PN ---
- Subjective Encounter Start Date: 08/13/18 Encounter Start Time: 10:00 Patient seen and examined. on vent. No overnight events - Objective Resuscitation Status - Order Detail: 08/05/18 13:01 Resuscitation Status Routine Resuscitation Status: FULL: Full Resuscitation MAR Reviewed: Yes Vital Signs & Weight: Vital Signs (12 hours) Temp Pulse Resp BP Pulse Ox 08/13/18 10:00 20 08/13/18 08:22 110 H 145/61 H 08/13/18 08:20 106 H 139/61 08/13/18 08:00 23 H 08/13/18 07:58 110 H 08/13/18 07:00 98.5 F 08/13/18 06:20 106 H 139/61 08/13/18 06:17 106 H 22 H 95 08/13/18 06:00 21 H 08/13/18 04:00 98.8 F 24 H 08/13/18 02:45 98 24 H 96 08/13/18 02:00 24 H 08/13/18 01:00 21 H 08/13/18 00:00 99.0 F 21 H Weight Admit Weight 164 lb 0.383 oz Weight 170 lb 15.115 oz Most Recent Monitor Data Heart Rate from ECG 97 NIBP 126/60 NIBP BP-Mean 82 Respiration from ECG 22 SpO2 94 I&O: 08/12/18 08/13/18 08/14/18 06:59 06:59 06:59 Intake Total 1368.3 1605.3 Output Total 2007 1258 185 Balance -639.7 347.3 -185 Result Diagrams: 08/12/18 05:28 08/12/18 05:28 EKG Reviewed by me: Yes (nsr) Phys Exam - Physical Examination Constitutional: NAD on vent OG, ET in place Neck: no JVD, supple Respiratory: no wheezing, no rales, no rhonchi anteriorly chest tube+ Cardiovascular: RRR, no significant murmur, no rub central line Gastrointestinal: soft midline wound vac, left flank wound vac, SRAVAN drain colostomy Musculoskeletal: no edema, pulses present unable to assess due to intubated status Lymphatic: no nodes Skin: no rash, normal turgor Dx/Plan (1) Diverticulitis of colon with perforation Code(s): K57.20 - DVTRCLI OF LG INT W PERFORATION AND ABSCESS W/O BLEEDING Status: Acute (2) Necrotizing fasciitis Code(s): M72.6 - NECROTIZING FASCIITIS Status: Acute Comment: left flank, s/ p I & D, (3) S/P laparotomy Status: Acute Comment: for perforated colon now with colostomy, wound closed with wound vac (4) Acute respiratory failure Code(s): J96.00 - ACUTE RESPIRATORY FAILURE, UNSP W HYPOXIA OR HYPERCAPNIA Status: Acute Qualifiers: Respiratory failure complication: hypoxia Qualified Code(s): J96.01 - Acute respiratory failure with hypoxia (5) Community acquired bacterial pneumonia Code(s): J15.9 - UNSPECIFIED BACTERIAL PNEUMONIA Status: Acute (6) S/P chest tube placement Code(s): Z93.8 - OTHER ARTIFICIAL OPENING STATUS Status: Acute Comment: for air in mediastinum and chest (7) Demand ischemia of myocardium Code(s): I24.8 - OTHER FORMS OF ACUTE ISCHEMIC HEART DISEASE Status: Acute (8) Elevated brain natriuretic peptide (BNP) level Code(s): R79.89 - OTHER SPECIFIED ABNORMAL FINDINGS OF BLOOD CHEMISTRY Status : Acute (9) Encephalopathy in sepsis Code(s): G93.41 - METABOLIC ENCEPHALOPATHY Status: Acute Comment: as well as due to metabolic factors (10) High anion gap metabolic acidosis Code(s): E87.2 - ACIDOSIS Status: Acute (11) Hypomagnesemia Code(s): E83.42 - HYPOMAGNESEMIA Status: Acute (12) Hyponatremia Code(s): E87.1 - HYPO-OSMOLALITY AND HYPONATREMIA Status: Acute (13) Lactic acidosis Code(s): E87.2 - ACIDOSIS Status: Acute (14) Sepsis associated hypotension Code(s): A41.9 - SEPSIS, UNSPECIFIED ORGANISM; I95.9 - HYPOTENSION, UNSPECIFIED Status: Acute (15) Sepsis with acute organ dysfunction Code(s): A41.9 - SEPSIS, UNSPECIFIED ORGANISM; R65.20 - SEVERE SEPSIS WITHOUT SEPTIC SHOCK Status: Acute (16) UTI (urinary tract infection) Status: Acute (17) Anemia of chronic disease Code(s): D63.8 - ANEMIA IN OTHER CHRONIC DISEASES CLASSIFIED ELSEWHERE Status : Chronic Comment: with microcytosis (18) Anxiety and depression Code(s): F41.9 - ANXIETY DISORDER, UNSPECIFIED; F32.9 - MAJOR DEPRESSIVE DISORDER, SINGLE EPISODE, UNSPECIFIED Status: Chronic (19) Dyslipidemia Code(s): E78.5 - HYPERLIPIDEMIA, UNSPECIFIED Status: Chronic (20) S/P colostomy Code(s): Z93.3 - COLOSTOMY STATUS Status: Acute - Plan cont current plan of care, continue antibiotics * medication reviewed as below * symptomatic treatment * continue micafungin * wound care * vent as per pulmonary * supportive care. Review of Systems - Review of Systems Other: unable to review due to intubated status - Medications/Allergies Allergies/Adverse Reactions: Allergies Allergy/AdvReac Type Severity Reaction Status Date / Time Sulfa (Sulfonamide Allergy Verified 08/05/18 15:43 Antibiotics) Medications: Current Medications Albuterol/Ipratropium (Duoneb) 3 ml NEB [id number] PRN PRN Reason: SOB &/or Wheezing Albuterol/Ipratropium (Duoneb) 3 ml NEB [id number] [facility] Last Admin: 08/13/18 06:17 Dose: 3 ml Artificial Tears (Tears Renewed 15ml Bottle) 2 drop EA EYE PRN PRN PRN Reason: Dry Eyes Enoxaparin Sodium (Lovenox) 40 mg SC 0900 [facility] Last Admin: 08/13/18 08:21 Dose: 40 mg Hydralazine HCl (Apresoline) 10 mg SLOW IVP Q4H PRN PRN Reason: SBP > 180 and HR < 70 Fentanyl Citrate 2,000 mcg/ (Sodium Chloride) 100 mls @ 0 mls/hr IV INF AUDREY; Protocol Stop: 09/05/18 22:27 Last Admin: 08/13/18 10:38 Dose: 100 mls Fentanyl Citrate (Fentanyl Bolus) 250 mls @ 0 mls/hr IVPB PRN PRN PRN Reason: Breakthrough pain/agitation Stop: 09/05/18 22:27 Meropenem 2 gm/ Miscellaneous Medication 1 each/ Sodium Chloride 100 mls @ 0 mls/hr IVPB 0800,1600,2359 [facility] Last Admin: 08/13/18 08:20 Dose: 100 mls Micafungin Sodium 100 mg/ (Sodium Chloride) 100 mls @ 100 mls/hr IVPB Q24HR [facility] Last Admin: 08/12/18 15:35 Dose: 100 mls Sodium Chloride (1/2 Normal Saline) 1,000 mls @ 0 mls/hr IV .Q0M [facility] Latanoprost (Xalatan 0.005% Ophth Soln) 1 drop EA EYE HS [facility] Last Admin: 08/12/18 20:10 Dose: 1 drp Lorazepam (Ativan) 2 mg SLOW IVP Q1H PRN PRN Reason: Breakthrough agitation Stop: 09/05/18 22:27 Miscellaneous Medication (Ventilator Sedation Protocol) 1 each FS ASDIR [facility] Morphine Sulfate (Morphine) 2 mg SLOW IVP Q1H PRN PRN Reason: BREAKTHROUGH PAIN/Agitation Stop: 09/05/18 22:27 Discontinue Previous Narcotic Pain Medications And Benzodiazepines 1 each FS .ONE [facility] Stop: 09/05/18 22:27 Ondansetron HCl (Zofran) 4 mg IVP Q6H PRN PRN Reason: Nausea/Vomiting Pantoprazole Sodium (Protonix) 40 mg IVP DAILY [facility] Last Admin: 08/13/18 08:21 Dose: 40 mg Propofol (Diprivan) 1,000 mg IV INF PRN; Protocol PRN Reason: TO ACHIEVE GOAL RASS Stop: 09/05/18 22:27 Propofol (Diprivan Bolus) 20 mg IV Q5MIN PRN PRN Reason: BREAKTHROUGH AGITATION Stop: 09/05/18 22:27 Sodium Chloride (Flush - Normal Saline) 10 ml IVF Q12HR [facility] Last Admin: 08/13/18 08:21 Dose: 10 ml Sodium Chloride (Flush - Normal Saline) 10 ml IVF PRN PRN PRN Reason: Saline Flush Sodium Chloride ([place] Nasal [place] 0.65%) 0 ml EA NARE QIDPRN PRN PRN Reason: Nasal Congestion Sodium Chloride (Flush - Normal Saline) 10 ml IV DAILY [facility] Last Admin: 08/13/18 08:21 Dose: 10 ml Timolol Maleate (Timoptic 0.5% Ophth Soln) 1 drop EA EYE BID [facility] Last Admin: 08/13/18 08:22 Dose: 1 drp
[2018-08-13] MEDS ORDERED: Furosemide 100 MG/10 ML VIAL SLOW IVP SCH (12:00)
--- NOTE | 2018-08-13 12:09 | PRG ---
DATE OF SERVICE: 08/13/2018 SUBJECTIVE: Dee Monroy is doing well today. She is in ICU. Her FiO2 has been increased from 55 to 60. She is on increased PEEP. She remains on the ventilator. OBJECTIVE: VITAL SIGNS: Respiratory rate 20 and blood pressure 126/60. Chest tube drainage, left 210 mL last 24 hours, 20 mL so far this morning. She is tolerating her tube feedings. Left SRAVAN drain has been removed. Right SRAVAN 150 mL serous fluid in the last 24 hours. Colostomy output, some stool. Urine output, 798 in the past 24 hours. LUNGS: Clear to auscultation. CARDIAC: Regular rate and rhythm without murmur or gallop. ABDOMEN: Soft plus bowel sounds. EXTREMITIES: Slight edema. LABORATORY DATA: Laboratories this morning, CBC not obtained. Basic metabolic profile unremarkable. Potassium 3.5 and BUN and creatinine 16 and 0.48. ASSESSMENT AND PLAN: 1. Respiratory failure. She continues with acute respiratory distress syndrome, right lung. Increase FiO2 has been required. Treatment per Pulmonary. Continue supportive care. 2. Left tube thoracostomy. I have discussed with Dr. Perez. We will leave that in place for now. Could actually remove it at anytime, output has diminished tremendously and we could remove it now or wait till she is extubated. 3. Malnutrition. Increase her tube feedings to the target rate. She is tolerating tube feedings and currently running at 20 per hour, target rate of 35. WENDI Boyd, her nurse will increase the rate to her target rate today. 4. Open wounds, left flank. Wound care reports these are granulating and improving. Midline wound VAC is healthy. Colostomy is healthy. Plan as noted above. Dr. Velazco is covering till 08/19. Continue supportive care, wound care, and antibiotics. Job ID: [id number]
--- NOTE | 2018-08-13 12:15 | PRG ---
DATE OF SERVICE: 08/13/2018 SUBJECTIVE: Dee Monroy is in no distress. She will awake and move all her extremities. OBJECTIVE: VITAL SIGNS: Respiratory rate is 20, heart rate is 97, blood pressure 126/60, oximetry is 94%. LUNGS: She still has rhonchi on the right, about the same as yesterday, but much better than 2 days ago. Lungs are otherwise clear. HEART: Regular rhythm. S1 and S2 are normal. ABDOMEN: Soft. Slightly distended. EXTREMITIES: Without edema. LABORATORY DATA: White count 28.2, hemoglobin 11.8, platelets 186, 25% bands on her peripheral smear. Sodium 143, potassium 3.5, chloride 116, bicarb 18, BUN 16, creatinine 0.48. IMPRESSION: 1. Status post laparotomy for retroperitoneal abscess, probably associated with perforated diverticulitis. 2. Status post placement of a left chest tube. Fluid was sterile on culture. Plan to keep this in for few more days as long as she is draining. 3. Status post two abdominal surgeries, second one being a washout and closure. 4. Advanced age. 5. Respiratory failure, acute, not weanable at this point in time. 6. Pneumonia involving the entire right lung, likely aspiration-mediated. PLAN: Continue with mechanical ventilation with slow decrease in ventilatory support. She is not weanable at this point in time. She is very weak and has enough secretions, so I do not think she will do well postextubation until we see some clinical improvement of her pneumonia and secretion issues. Job ID: [id number] critical care time 30 minutes LIZZ
[2018-08-13] MEDS: Micafungin 100 MG in Sodium Chloride 0.9% 100 ML IVPB SCH (16:05)
[2018-08-13] MEDS: Latanoprost 0.005% Ophth Soln 2.5 ml Bottle EA EYE SCH (20:26)
[2018-08-14 03:46] LABS: ALT (SGPT) 13 U/L (8-55); AST (SGOT) 21 U/L (5-34); Albumin 1.5 g/dL (3.4-4.8); Alkaline Phosphatase 146 U/L (40-150); Anion Gap 12 mmol/L (10-20); BUN (Urea Nitrogen) 25 mg/dL (9.8-20.1); Bilirubin, Total 0.4 mg/dL (0.2-1.2); Calc. Creatinine Clearance 101 mL/min (70-130); Calcium 7.1 mg/dL (7.8-10.44); Carbon Dioxide 25 mmol/L (23-31); Chloride 113 mmol/L (98-107); Estimated GFR-MDRD Greater than 90; Globulin 2.8 g/dL (2.4-3.5); Glucose 149 mg/dL (83-110); Magnesium 1.5 mg/dL (1.6-2.6); Potassium 3.1 mmol/L (3.5-5.1); Protein, Total 4.3 g/dL (6.0-8.3); Sodium 147 mmol/L (136-145)
[2018-08-14 03:50] LABS: Band 16 % (5-11); Hemoglobin 11.5 g/dL (12.0-16.0); Lymphocytes 10 % (21-51); MDiff Complete? YES; Mean Corpuscular HGB CONC 32.6 g/dL (32.0-36.0); Mean Corpuscular Hemoglobin 27.2 pg (27.0-31.0); Mean Corpuscular Volume 83.4 fL (78.0-98.0); Mean Platelet Volume 9.2 fL (7.4-10.4); Monocytes 1 % (0-10); Neutrophil 73 % (42-75); Platelet Count 176 thou/uL (130-400); Platelet Morphology Comment Appears Adequate; RBC Distribution Width 20.6 % (11.5-14.5); Red Blood Cell (RBC) Count 4.23 mill/uL (4.20-5.40); White Blood Cell (WBC) Count 25.9 thou/uL (4.8-10.8)
[2018-08-14] MEDS ORDERED: Potassium Phosphate 15 MMOL in Sodium Chloride 0.9% 250 ML 250 ML IV PRN (03:57)
[2018-08-14] MEDS ORDERED: Potassium Phosphate 9 MMOL in Sodium Chloride 0.9% 100 ML IVPB PRN (03:57)
[2018-08-14] MEDS ORDERED: Potassium Chloride 40 MEQ in Sodium Chloride 0.9% 250 ML 250 ML IVPB PRN (03:57)
[2018-08-14] MEDS ORDERED: Magnesium 2 GM/NS 0.9% 100 ML 2 GM in Premix Bag 1 BAG IVPB PRN (03:57)
[2018-08-14] MEDS ORDERED: Potassium Phosphate 12 MMOL in Sodium Chloride 0.9% 250 ML 250 ML IV PRN (03:57)
[2018-08-14] MEDS ORDERED: CCU ELECTROLYTE REPLACEMENT PROTOCOL FS PRN (03:57)
[2018-08-14] MEDS ORDERED: Potassium Chloride 20 MEQ TAB PO PRN (03:57)
[2018-08-14] MEDS ORDERED: Magnesium Oxide 400 MG TAB PO PRN ×2 (03:57)
[2018-08-14] MEDS: Potassium Chloride 40 MEQ in Premix Bag 1 BAG IVPB PRN (04:19)
[2018-08-14 07:07] LABS: Actual Bicarbonate (HCO3a) 24.6 mEq/L (22-28); Base Excess (BEa) 0.6 mEq/L (-2.0 to +3.0); CO2 Tension 37.2 mmHg (35.0-45.0); Carboxyhemoglobin (COHb) 1.3 gm% (0.0-3.0); Hemoglobin (Hb) 11.6 g/dL (12.0-16.0); O2 Tension (PaO2) 75.9 mmHg (> 60.0); Potassium - ABG Lab 3.71 mmol/L (3.70-5.30); pH, Arterial 7.44 (7.35-7.45)
[2018-08-14 07:08] LABS: Peep/CPAP 7.5 cmH2O; Puncture Site LRA
[2018-08-14] MEDS: Enoxaparin Sodium 40 MG/0.4 ML SYRINGE SC SCH (07:29)
[2018-08-14] MEDS: Meropenem 2 GM, Admixture Fee 1 EACH in Sodium Chloride 0.9% 100 ML IVPB SCH ×3 (07:29→23:03)
[2018-08-14] MEDS: Pantoprazole 40 MG VIAL IVP SCH (07:30)
[2018-08-14] MEDS: Timolol 0.5% Ophth Soln 5 ml Bottle EA EYE SCH ×2 (07:30→20:24)
--- NOTE | 2018-08-14 10:17 | PRG ---
DATE OF SERVICE: 08/14/2018 Thirty minutes critical care time. SUBJECTIVE: Ms. Monroy remains intubated on mechanical ventilation. OBJECTIVE: VITAL SIGNS: On exam, her temperature is 97.5, pulse 109, blood pressure 128/59, O2 saturations 97%. Intake for 24 hours 1163, output 2115. HEENT: Unremarkable. NECK: Without adenopathy, JVD, or bruits. LUNGS: She has chest tubes present in the left chest. Diminished breath sounds throughout. CARDIAC: S1 and S2, regular. ABDOMEN: Soft. Colostomy noted. Multiple drains noted. EXTREMITIES: Edematous. LABORATORY DATA: White blood cell count 25.9, hematocrit 35.3, and platelet count 176. PH 7.44, pCO2 of 37, pO2 of 75, on SIMV rate of 8, tidal volume 500, PEEP 7.5, pressure support 14, and FiO2 of 50%. Sodium 147, potassium 3.1, chloride 113, CO2 of 25, BUN 25, creatinine 0.5, and glucose 149. ASSESSMENT: 1. Status post laparotomy for retroperitoneal abscess. 2. Status post chest tube for left effusion. 3. Status post 2 abdominal surgeries with washout. 4. Respiratory failure, requiring mechanical ventilation. 5. Hypernatremia. 6. Hypokalemia. PLAN: In my opinion, the patient is not weanable. She needs to continue on the meropenem and micafungin for antibiotic coverage. Potassium is being replaced. I would not worry too much about the sodium level at the current time. Job ID: [id number]
--- NOTE | 2018-08-14 11:08 | PDOC.PN ---
- Subjective Encounter Start Date: 08/14/18 Encounter Start Time: 10:00 pt is on vent, she is arousable, today mag and potassium replaced, - Objective Resuscitation Status - Order Detail: 08/05/18 13:01 Resuscitation Status Routine Resuscitation Status: FULL: Full Resuscitation MAR Reviewed: Yes Vital Signs & Weight: Vital Signs (12 hours) Temp Pulse Resp BP Pulse Ox 08/14/18 10:19 117/52 L 08/14/18 10:17 110 H 23 H 96 08/14/18 10:00 22 H 08/14/18 08:00 23 H 08/14/18 07:30 120 H 136/66 08/14/18 07:00 97.5 F L 08/14/18 06:40 116 H 23 H 102/47 L 99 08/14/18 06:00 24 H 08/14/18 04:00 98.3 F 20 08/14/18 02:32 113 H 22 H 97 08/14/18 02:00 22 H 08/14/18 00:00 99 F 21 H Weight Admit Weight 164 lb 0.383 oz Weight 136 lb 14.513 oz Most Recent Monitor Data Heart Rate from ECG 110 NIBP 117/52 NIBP BP-Mean 73 Respiration from ECG 22 SpO2 97 I&O: 08/13/18 08/14/18 08/15/18 06:59 06:59 06:59 Intake Total 1605.3 1613 38.7 Output Total 1258 2115 224 Balance 347.3 -502 -185.3 Result Diagrams: 08/14/18 03:15 08/14/18 03:15 Radiology Reviewed by me: Yes (chest xray right side infiltration) EKG Reviewed by me: Yes (nsr) Phys Exam - Physical Examination Constitutional: NAD on vent HEENT: PERRLA, sclera anicteric OG tube, ET tube Neck: no JVD, supple coarse sound on right, chest tube on left side, central line Cardiovascular: RRR, no significant murmur, no rub Gastrointestinal: soft wound vac left lateral, midline, SRAVAN drain, colostomy+, aponte+ Musculoskeletal: no edema, pulses present scd+ Lymphatic: no nodes Skin: no rash, normal turgor Dx/Plan (1) Diverticulitis of colon with perforation Code(s): K57.20 - DVTRCLI OF LG INT W PERFORATION AND ABSCESS W/O BLEEDING Status: Acute (2) Necrotizing fasciitis Code(s): M72.6 - NECROTIZING FASCIITIS Status: Acute Comment: left flank, s/ p I & D, (3) S/P laparotomy Status: Acute Comment: for perforated colon now with colostomy, wound closed with wound vac (4) Acute respiratory failure Code(s): J96.00 - ACUTE RESPIRATORY FAILURE, UNSP W HYPOXIA OR HYPERCAPNIA Status: Acute Qualifiers: Respiratory failure complication: hypoxia Qualified Code(s): J96.01 - Acute respiratory failure with hypoxia (5) S/P chest tube placement Code(s): Z93.8 - OTHER ARTIFICIAL OPENING STATUS Status: Acute Comment: for air in mediastinum and chest (6) Community acquired bacterial pneumonia Code(s): J15.9 - UNSPECIFIED BACTERIAL PNEUMONIA Status: Acute (7) Demand ischemia of myocardium Code(s): I24.8 - OTHER FORMS OF ACUTE ISCHEMIC HEART DISEASE Status: Acute (8) Elevated brain natriuretic peptide (BNP) level Code(s): R79.89 - OTHER SPECIFIED ABNORMAL FINDINGS OF BLOOD CHEMISTRY Status : Acute (9) Encephalopathy in sepsis Code(s): G93.41 - METABOLIC ENCEPHALOPATHY Status: Acute Comment: as well as due to metabolic factors (10) High anion gap metabolic acidosis Code(s): E87.2 - ACIDOSIS Status: Acute (11) Hypomagnesemia Code(s): E83.42 - HYPOMAGNESEMIA Status: Acute (12) Hyponatremia Code(s): E87.1 - HYPO-OSMOLALITY AND HYPONATREMIA Status: Acute (13) Lactic acidosis Code(s): E87.2 - ACIDOSIS Status: Acute (14) Sepsis associated hypotension Code(s): A41.9 - SEPSIS, UNSPECIFIED ORGANISM; I95.9 - HYPOTENSION, UNSPECIFIED Status: Acute (15) Sepsis with acute organ dysfunction Code(s): A41.9 - SEPSIS, UNSPECIFIED ORGANISM; R65.20 - SEVERE SEPSIS WITHOUT SEPTIC SHOCK Status: Acute (16) UTI (urinary tract infection) Status: Acute (17) Anemia of chronic disease Code(s): D63.8 - ANEMIA IN OTHER CHRONIC DISEASES CLASSIFIED ELSEWHERE Status : Chronic Comment: with microcytosis (18) Anxiety and depression Code(s): F41.9 - ANXIETY DISORDER, UNSPECIFIED; F32.9 - MAJOR DEPRESSIVE DISORDER, SINGLE EPISODE, UNSPECIFIED Status: Chronic (19) Dyslipidemia Code(s): E78.5 - HYPERLIPIDEMIA, UNSPECIFIED Status: Chronic (20) S/P colostomy Code(s): Z93.3 - COLOSTOMY STATUS Status: Acute (21) Hypokalemia Code(s): E87.6 - HYPOKALEMIA Status: Acute - Plan cont current plan of care, continue antibiotics, respiratory therapy * continue meropenam and micafungin * continue tube feeding * replace electrolytes * wound care * supportive care * vent as per pulmonary * medication reviewed as below * symptomatic treatment. Review of Systems - Review of Systems Other: unable to review due to intubated status - Medications/Allergies Allergies/Adverse Reactions: Allergies Allergy/AdvReac Type Severity Reaction Status Date / Time Sulfa (Sulfonamide Allergy Verified 08/05/18 15:43 Antibiotics) Medications: Current Medications Albuterol/Ipratropium (Duoneb) 3 ml NEB [id number] PRN PRN Reason: SOB &/or Wheezing Albuterol/Ipratropium (Duoneb) 3 ml NEB [id number] [facility] Last Admin: 08/14/18 10:17 Dose: 3 ml Artificial Tears (Tears Renewed 15ml Bottle) 2 drop EA EYE PRN PRN PRN Reason: Dry Eyes Enoxaparin Sodium (Lovenox) 40 mg SC 0900 [facility] Last Admin: 08/14/18 07:29 Dose: 40 mg Hydralazine HCl (Apresoline) 10 mg SLOW IVP Q4H PRN PRN Reason: SBP > 180 and HR < 70 Fentanyl Citrate 2,000 mcg/ (Sodium Chloride) 100 mls @ 0 mls/hr IV INF AUDREY; Protocol Stop: 09/05/18 22:27 Last Admin: 08/13/18 10:38 Dose: 100 mls Fentanyl Citrate (Fentanyl Bolus) 250 mls @ 0 mls/hr IVPB PRN PRN PRN Reason: Breakthrough pain/agitation Stop: 09/05/18 22:27 Meropenem 2 gm/ Miscellaneous Medication 1 each/ Sodium Chloride 100 mls @ 0 mls/hr IVPB 0800,1600,2359 [facility] Last Admin: 08/14/18 07:29 Dose: 100 mls Micafungin Sodium 100 mg/ (Sodium Chloride) 100 mls @ 100 mls/hr IVPB Q24HR [facility] Last Admin: 08/13/18 16:05 Dose: 100 mls Sodium Chloride (1/2 Normal Saline) 1,000 mls @ 0 mls/hr IV .Q0M [facility] Potassium Chloride 40 meq/ (Sodium Chloride) 270 mls @ 135 mls/hr IVPB ASDIR PRN PRN Reason: FOR SERUM K+ 2.5 - 3.5 Potassium Chloride 40 meq/ (Device) 100 mls @ 50 mls/hr IVPB ASDIR PRN PRN Reason: FOR SERUM K+ 2.5 - 3.5 Last Admin: 08/14/18 04:19 Dose: 100 mls Magnesium Sulfate 1 gm/ Sodium (Chloride) 102 mls @ 102 mls/hr IV PRN PRN PRN Reason: MAG LEVEL 1.4 - 2.0 Last Admin: 08/14/18 04:26 Dose: 102 mls Magnesium Sulfate 2 gm/ Device 100 mls @ 100 mls/hr IVPB ASDIR PRN PRN Reason: MAGNESIUM < 1.4 Potassium Phosphate 9 mmol/ (Sodium Chloride) 103 mls @ 25.75 mls/hr IVPB ASDIR PRN PRN Reason: Phosphate 1.0-1.8 Potassium Phosphate 12 mmol/ (Sodium Chloride) 254 mls @ 63.5 mls/hr IV ASDIR PRN PRN Reason: Serum phosphate 0.5-0.9 Potassium Phosphate 15 mmol/ (Sodium Chloride) 255 mls @ 63.75 mls/hr IV ASDIR PRN PRN Reason: Serum Phos < 0.5 Latanoprost (Xalatan 0.005% Oph Soln) 1 drop EA EYE HS [facility] Last Admin: 08/13/18 20:26 Dose: 1 drp Lorazepam (Ativan) 2 mg SLOW IVP Q1H PRN PRN Reason: Breakthrough agitation Stop: 09/05/18 22:27 Magnesium Oxide (Magnesium Oxide) 400 mg PO BIDPRN PRN PRN Reason: FOR SERUM MAG 1.4 - 2.0 Magnesium Oxide (Magnesium Oxide) 800 mg PO PRN PRN PRN Reason: FOR SERUM MAG < 1.4 Miscellaneous Medication (Ventilator Sedation Protocol) 1 each FS ASDIR [facility] Miscellaneous Medication (Phos-Nak) 1 pkt PO TIDPRN PRN PRN Reason: FOR PHOS LEVEL 1.0 - 1.8 Miscellaneous Medication (Phos-Nak) 2 pkt PO TIDPRN PRN PRN Reason: FOR PHOS LEVEL 0.5 - 1.0 Morphine Sulfate (Morphine) 2 mg SLOW IVP Q1H PRN PRN Reason: BREAKTHROUGH PAIN/Agitation Stop: 09/05/18 22:27 Discontinue Previous Narcotic Pain Medications And Benzodiazepines 1 each FS .ONE [facility] Stop: 09/05/18 22:27 Ccu Electrolyte (Replacement Protocol) 0 each FS PRN PRN PRN Reason: FOR ELECTROLYTE REPLACEMENT Ondansetron HCl (Zofran) 4 mg IVP Q6H PRN PRN Reason: Nausea/Vomiting Pantoprazole Sodium (Protonix) 40 mg IVP DAILY [facility] Last Admin: 08/14/18 07:30 Dose: 40 mg Potassium Chloride (K-Dur) 40 meq PO ASDIR PRN PRN Reason: FOR SERUM K+ 2.5 - 3.5 Potassium Chloride (Klor-Con) 40 meq PER TUBE ASDIR PRN PRN Reason: FOR SERUM K+ 2.5-3.5 Propofol (Diprivan) 1,000 mg IV INF PRN; Protocol PRN Reason: TO ACHIEVE GOAL RASS Stop: 09/05/18 22:27 Propofol (Diprivan Bolus) 20 mg IV Q5MIN PRN PRN Reason: BREAKTHROUGH AGITATION Stop: 09/05/18 22:27 Sodium Chloride (Flush - Normal Saline) 10 ml IVF Q12HR [facility] Last Admin: 08/14/18 07:30 Dose: 10 ml Sodium Chloride (Flush - Normal Saline) 10 ml IVF PRN PRN PRN Reason: Saline Flush Last Admin: 08/14/18 07:30 Dose: 10 ml Sodium Chloride ([place] Nasal [place] 0.65%) 0 ml EA NARE QIDPRN PRN PRN Reason: Nasal Congestion Sodium Chloride (Flush - Normal Saline) 10 ml IV DAILY [facility] Last Admin: 08/14/18 07:29 Dose: 10 ml Timolol Maleate (Timoptic 0.5% Oph Soln) 1 drop EA EYE BID [facility] Last Admin: 08/14/18 07:30 Dose: 1 drp
--- NOTE | 2018-08-14 13:29 | RAD ---
RADIOGRAPH CHEST 1 VIEW: Date: 08/14/2018. Time: 4:44 a.m. HISTORY: An 83-year-old female in respiratory failure. COMPARISON: 08/11/2018. FINDINGS: Endotracheal tube, NG tube, right subclavian central line, and left-sided chest tube remain. Severe alveolar infiltrates in left mid and lower lung zones. Diffuse alveolar infiltrates throughout the r ight lung. These have worsened at the right lower lobe, now with consolidation in the right lower lo be with air bronchogram; but has improved in the right upper lobe. No pneumothorax identified. Ther e are probable bilateral pleural effusions. IMPRESSION: 1. Shifting degree of severity in diffuse infiltrates throughout the right lung. 2. Consolidation at left lower lobe. 3. The findings are suspicious for pneumonia. 4. No change in life support lines. JORGE [] POS: MELANIE
[2018-08-14] MEDS ORDERED: Fleet Enema 133 ML BOT FS SCH (15:00)
--- NOTE | 2018-08-14 16:23 | PDOC.GSPN ---
Surgery Progress Note: Subj - Subjective Narrative: Patient is tolerating tube feeds at goal without much residual. Minimal colostomy output which is just serous fluid. Colostomy is patent but there is very hard stool in the distal colon which was manually disimpacted. VAC drainage is serosanguineous and is putting about 200 a day out. Abdomen is soft and nondistended. White count is still high but patient is afebrile. Left CT output is serosanguineous and minimal. There is no air leak. Assessment/plan: Still critically ill with ARDS status post perforated diverticulitis with retroperitoneal and flank abscess. Left chest tube was placed to water seal and I will likely remove this tomorrow. We are going to give the patient some enemas through her colostomy and carefully monitor her tolerance of tube feeds and gastric residuals.I will examine the wounds with the Wound Care team on Thursday. Surgery Progress Note: Obj - Vital signs Vital signs: Vital Signs - Most Recent Temp Pulse Resp BP Pulse Ox 98.5 F 127 H 17 127/87 97 08/14/18 16:00 08/14/18 14:41 08/14/18 16:00 08/14/18 14:36 08/14/18 14:41 Surgery Progress Note: Results - Labs Result Diagrams: 08/14/18 03:15 08/14/18 03:15 Lab results: Laboratory Results - last 24 hr 08/14/18 06:45 Specimen Type ARTERIAL Puncture Site LRA Bicarbonate Actual 24.6 ABG pH 7.44 ABG pCO2 37.2 ABG pO2 75.9 H ABG O2 Sat Calc/Caty 95.3 ABG O2 Content 15.4 L ABG Base Excess 0.6 ABG Hematocrit 34.0 L ABG Hemoglobin 11.6 L ABG Oxyhemoglobin 93.8 L ABG Carboxyhemoglobin 1.3 ABG Methemoglobin 0.30 ABG Deoxyhemoglobin 4.6 H Christiano Test POSITIVE A-a O2 Gradient 234.100 H Sodium 143 Potassium 3.71 Chloride 115 H Ionized Calcium 1.10 L Mode of Support SIMV.PSV Mechanical Rate 8 Inspired O2 50 Tidal Volume 500 Pressure Support 14 PEEP or CPAP 7.5
[2018-08-14] MEDS: Micafungin 100 MG in Sodium Chloride 0.9% 100 ML IVPB SCH (18:20)
[2018-08-14] MEDS: Latanoprost 0.005% Ophth Soln 2.5 ml Bottle EA EYE SCH (20:27)
[2018-08-15] MEDS: fentaNYL Citrate/PF 2,000 MCG in Sodium Chloride 0.9% 60 ML IV SCH (00:45)
[2018-08-15 04:36] LABS: #Eosinphils 0.1 thou/uL (0.0-0.7); #Lymphocytes 1.3 thou/uL (1.20-3.40); #Monocytes 0.3 thou/uL (0.11-0.59); #Neutrophils 20.2 thou/uL (1.40-6.50); %Eosinophils 0.3 % (0.0-10.0); %Monocytes 1.3 % (0.0-10.0); %Neutrophils 92.4 % (42.0-75.0); Hemoglobin 10.6 g/dL (12.0-16.0); Mean Corpuscular HGB CONC 31.3 g/dL (32.0-36.0); Mean Corpuscular Hemoglobin 26.5 pg (27.0-31.0); Mean Corpuscular Volume 84.6 fL (78.0-98.0); Mean Platelet Volume 8.8 fL (7.4-10.4); Platelet Count 178 thou/uL (130-400); RBC Distribution Width 20.8 % (11.5-14.5); Red Blood Cell (RBC) Count 4.01 mill/uL (4.20-5.40); White Blood Cell (WBC) Count 21.9 thou/uL (4.8-10.8)
[2018-08-15 04:56] LABS: ALT (SGPT) 12 U/L (8-55); AST (SGOT) 21 U/L (5-34); Albumin 1.5 g/dL (3.4-4.8); Alkaline Phosphatase 125 U/L (40-150); Anion Gap 11 mmol/L (10-20); BUN (Urea Nitrogen) 30 mg/dL (9.8-20.1); Bilirubin, Total 0.3 mg/dL (0.2-1.2); Calc. Creatinine Clearance 84 mL/min (70-130); Calcium 7.2 mg/dL (7.8-10.44); Carbon Dioxide 27 mmol/L (23-31); Chloride 115 mmol/L (98-107); Estimated GFR-MDRD Greater than 90; Globulin 2.7 g/dL (2.4-3.5); Glucose 142 mg/dL (83-110); Potassium 3.3 mmol/L (3.5-5.1); Protein, Total 4.2 g/dL (6.0-8.3); Sodium 150 mmol/L (136-145)
[2018-08-15] MEDS: Potassium Chloride 40 MEQ in Premix Bag 1 BAG IVPB PRN (05:01)
[2018-08-15 07:21] LABS: Actual Bicarbonate (HCO3a) 27.3 mEq/L (22-28); Base Excess (BEa) 3.5 mEq/L (-2.0 to +3.0); CO2 Tension 38.4 mmHg (35.0-45.0); Calcium, Ionized 1.11 mmol/L (1.12-1.30); Carboxyhemoglobin (COHb) 1.2 gm% (0.0-3.0); Hemoglobin (Hb) 10.5 g/dL (12.0-16.0); O2 Tension (PaO2) 69.9 mmHg (> 60.0); Potassium - ABG Lab 4.18 mmol/L (3.70-5.30); pH, Arterial 7.47 (7.35-7.45)
[2018-08-15 07:22] LABS: Peep/CPAP 7.5 cmH2O; Puncture Site LRA
[2018-08-15] MEDS: Meropenem 2 GM, Admixture Fee 1 EACH in Sodium Chloride 0.9% 100 ML IVPB SCH ×3 (08:32→23:49)
[2018-08-15] MEDS: Enoxaparin Sodium 40 MG/0.4 ML SYRINGE SC SCH (08:32)
[2018-08-15] MEDS: Pantoprazole 40 MG VIAL IVP SCH (08:33)
[2018-08-15] MEDS: Timolol 0.5% Ophth Soln 5 ml Bottle EA EYE SCH ×2 (08:40→20:05)
[2018-08-15 09:26] LABS: Magnesium 1.6 mg/dL (1.6-2.6); Phosphorus 2.2 mg/dL (2.3-4.7)
--- NOTE | 2018-08-15 09:56 | RAD ---
RADIOGRAPH CHEST 1 VIEW: Date: 08/15/2018. Time: 4:33 a.m. HISTORY: An 83-year-old female in respiratory failure. COMPARISON: 08/14/2018, 4:44 a.m. FINDINGS: There has been no interval change. IMPRESSION: 1. Consolidations at bilateral lower lung zones. 2. Diffuse infiltrates throughout the right mid and upper lung zones, and left mid lung zone. 3. No change in life support lines. 4. Probable bilateral pleural effusions. 5. No interval change overall since yesterday. JORGE [] POS: JHONY
--- NOTE | 2018-08-15 10:45 | PRG ---
DATE OF SERVICE: 08/15/2018 TIME SPENT: Thirty-five minutes of critical care time. SUBJECTIVE: This patient remains intubated on mechanical ventilation. She is up in a chair today, actually looks very good. OBJECTIVE: VITAL SIGNS: Her temperature is 98.5, pulse 104, blood pressure 129/63. A 24-hour intake 1463 and output 2215. Chest tube has had minimal output. HEENT: Unremarkable. NECK: No JVD. CHEST: Crackles bilaterally. CARDIAC: S1 and S2. Regular. ABDOMEN: Soft. EXTREMITIES: No edema. IMAGING DATA: The chest x-ray was reviewed, shows minimal fluid on the left. Overall x-ray appears unchanged. LABORATORY DATA: White blood cell count 21, hematocrit 33, and platelet count 178. A pH of 7.47, pCO2 of 38, and pO2 of 70 on SIMV rate 8, tidal volume 500, PEEP 7.5, pressure support 14, and FiO2 of 40%. Sodium 150, potassium 3.3, chloride 115, CO2 of 27, BUN 30, creatinine 0.5, and glucose 142. ASSESSMENT: 1. Acute respiratory failure requiring mechanical ventilation. 2. Status post laparotomy for retroperitoneal abscess. 3. Left pleural effusion, being treated with a chest tube, now with minimal output. 4. Status post 2 abdominal surgeries with washout. 5. Hypernatremia. PLAN: 1. We will go ahead and pull the chest tube today. She will continue on antibiotics and antifungals. 2. Free water was started by Dr. Ghotra. She may actually need more than the dose that was written for. 3. Not weanable at the current time. Job ID: [id number]
[2018-08-15] MEDS: Dextrose 5% in Water 1,000 ML IV SCH (11:08)
[2018-08-15] MEDS ORDERED: Potassium Phosphate 30 MMOL in Sodium Chloride 0.9% 500 ML IVPB SCH (11:30)
--- NOTE | 2018-08-15 12:10 | PDOC.PN ---
- Subjective Encounter Start Date: 08/15/18 Encounter Start Time: 10:15 Patient seen and examined. pt is on vent, No overnight events - Objective Resuscitation Status - Order Detail: 08/05/18 13:01 Resuscitation Status Routine Resuscitation Status: FULL: Full Resuscitation MAR Reviewed: Yes Vital Signs & Weight: Vital Signs (12 hours) Temp Pulse Resp BP Pulse Ox 08/15/18 10:26 114 H 134/73 08/15/18 10:25 109 H 18 99 08/15/18 10:00 16 08/15/18 08:40 113 H 121/55 L 08/15/18 08:00 18 08/15/18 07:00 98.5 F 08/15/18 06:57 103 H 121/55 L 08/15/18 06:55 103 H 17 97 08/15/18 06:00 15 08/15/18 04:00 16 08/15/18 03:00 98.0 F 08/15/18 02:45 99 15 98 08/15/18 02:00 16 Weight Admit Weight 164 lb 0.383 oz Weight 2.589 oz Most Recent Monitor Data Heart Rate from ECG 122 NIBP 120/60 NIBP BP-Mean 80 Respiration from ECG 15 SpO2 100 I&O: 08/14/18 08/15/18 08/16/18 06:59 06:59 06:59 Intake Total 1613 1463.7 5 Output Total 2115 2215 375 Balance -502 -751.3 -370 Result Diagrams: 08/15/18 04:30 08/15/18 04:30 Radiology Reviewed by me: Yes (chest xray reviewed) EKG Reviewed by me: Yes (nsr) Phys Exam - Physical Examination Constitutional: NAD on vent HEENT: PERRLA, sclera anicteric Neck: no JVD, supple Respiratory: no wheezing, no rales, no rhonchi anteriorly Cardiovascular: RRR, no significant murmur, no rub chest tube in place Gastrointestinal: soft colostomy, wound vac, SRAVAN drain Musculoskeletal: no edema, pulses present scd+ Lymphatic: no nodes Skin: no rash, normal turgor Dx/Plan (1) Diverticulitis of colon with perforation Code(s): K57.20 - DVTRCLI OF LG INT W PERFORATION AND ABSCESS W/O BLEEDING Status: Acute (2) Necrotizing fasciitis Code(s): M72.6 - NECROTIZING FASCIITIS Status: Acute Comment: left flank, s/ p I & D, (3) S/P laparotomy Status: Acute Comment: for perforated colon now with colostomy, wound closed with wound vac (4) S/P colostomy Code(s): Z93.3 - COLOSTOMY STATUS Status: Acute (5) Acute respiratory failure Code(s): J96.00 - ACUTE RESPIRATORY FAILURE, UNSP W HYPOXIA OR HYPERCAPNIA Status: Acute Qualifiers: Respiratory failure complication: hypoxia Qualified Code(s): J96.01 - Acute respiratory failure with hypoxia (6) S/P chest tube placement Code(s): Z93.8 - OTHER ARTIFICIAL OPENING STATUS Status: Acute Comment: for air in mediastinum and chest (7) Community acquired bacterial pneumonia Code(s): J15.9 - UNSPECIFIED BACTERIAL PNEUMONIA Status: Acute (8) Demand ischemia of myocardium Code(s): I24.8 - OTHER FORMS OF ACUTE ISCHEMIC HEART DISEASE Status: Acute (9) Encephalopathy in sepsis Code(s): G93.41 - METABOLIC ENCEPHALOPATHY Status: Acute Comment: as well as due to metabolic factors (10) High anion gap metabolic acidosis Code(s): E87.2 - ACIDOSIS Status: Acute (11) Lactic acidosis Code(s): E87.2 - ACIDOSIS Status: Acute (12) Sepsis associated hypotension Code(s): A41.9 - SEPSIS, UNSPECIFIED ORGANISM; I95.9 - HYPOTENSION, UNSPECIFIED Status: Acute (13) Sepsis with acute organ dysfunction Code(s): A41.9 - SEPSIS, UNSPECIFIED ORGANISM; R65.20 - SEVERE SEPSIS WITHOUT SEPTIC SHOCK Status: Acute (14) UTI (urinary tract infection) Status: Acute (15) Anemia of chronic disease Code(s): D63.8 - ANEMIA IN OTHER CHRONIC DISEASES CLASSIFIED ELSEWHERE Status : Chronic Comment: with microcytosis (16) Anxiety and depression Code(s): F41.9 - ANXIETY DISORDER, UNSPECIFIED; F32.9 - MAJOR DEPRESSIVE DISORDER, SINGLE EPISODE, UNSPECIFIED Status: Chronic (17) Dyslipidemia Code(s): E78.5 - HYPERLIPIDEMIA, UNSPECIFIED Status: Chronic (18) Abnormal blood electrolyte level Code(s): E87.8 - OTH DISORDERS OF ELECTROLYTE AND FLUID BALANCE, NEC Status: Acute - Plan cont current plan of care, continue antibiotics, respiratory therapy * replace potassium phosphate today * change maintenance fluid to dex with water for hypernatremia * medication reviewed as below * symptomatic treatment * continue vent as per pulmonary * continue micafungin and meropenam * wound care * chest tube as per surgeon * supportive care. Review of Systems - Review of Systems Other: unable to review due to intubated status - Medications/Allergies Allergies/Adverse Reactions: Allergies Allergy/AdvReac Type Severity Reaction Status Date / Time Sulfa (Sulfonamide Allergy Verified 08/05/18 15:43 Antibiotics) Medications: Current Medications Albuterol/Ipratropium (Duoneb) 3 ml NEB [id number] PRN PRN Reason: SOB &/or Wheezing Albuterol/Ipratropium (Duoneb) 3 ml NEB [id number] [facility] Last Admin: 08/15/18 10:25 Dose: 3 ml Artificial Tears (Tears Renewed 15ml Bottle) 2 drop EA EYE PRN PRN PRN Reason: Dry Eyes Enoxaparin Sodium (Lovenox) 40 mg SC 0900 [facility] Last Admin: 08/15/18 08:32 Dose: 40 mg Hydralazine HCl (Apresoline) 10 mg SLOW IVP Q4H PRN PRN Reason: SBP > 180 and HR < 70 Fentanyl Citrate 2,000 mcg/ (Sodium Chloride) 100 mls @ 0 mls/hr IV INF [facility]; Protocol Stop: 09/05/18 22:27 Last Admin: 08/15/18 00:45 Dose: 100 mls Fentanyl Citrate (Fentanyl Bolus) 250 mls @ 0 mls/hr IVPB PRN PRN PRN Reason: Breakthrough pain/agitation Stop: 09/05/18 22:27 Meropenem 2 gm/ Miscellaneous Medication 1 each/ Sodium Chloride 100 mls @ 0 mls/hr IVPB 0800,1600,2359 [facility] Last Admin: 08/15/18 08:32 Dose: 100 mls Micafungin Sodium 100 mg/ (Sodium Chloride) 100 mls @ 100 mls/hr IVPB Q24HR [facility] Last Admin: 08/14/18 18:20 Dose: 100 mls Potassium Chloride 40 meq/ (Sodium Chloride) 270 mls @ 135 mls/hr IVPB ASDIR PRN PRN Reason: FOR SERUM K+ 2.5 - 3.5 Potassium Chloride 40 meq/ (Device) 100 mls @ 50 mls/hr IVPB ASDIR PRN PRN Reason: FOR SERUM K+ 2.5 - 3.5 Last Admin: 08/15/18 05:01 Dose: 100 mls Magnesium Sulfate 1 gm/ Sodium (Chloride) 102 mls @ 102 mls/hr IV PRN PRN PRN Reason: MAG LEVEL 1.4 - 2.0 Last Admin: 08/14/18 04:26 Dose: 102 mls Magnesium Sulfate 2 gm/ Device 100 mls @ 100 mls/hr IVPB ASDIR PRN PRN Reason: MAGNESIUM < 1.4 Potassium Phosphate 9 mmol/ (Sodium Chloride) 103 mls @ 25.75 mls/hr IVPB ASDIR PRN PRN Reason: Phosphate 1.0-1.8 Potassium Phosphate 12 mmol/ (Sodium Chloride) 254 mls @ 63.5 mls/hr IV ASDIR PRN PRN Reason: Serum phosphate 0.5-0.9 Potassium Phosphate 15 mmol/ (Sodium Chloride) 255 mls @ 63.75 mls/hr IV ASDIR PRN PRN Reason: Serum Phos < 0.5 Dextrose/Water (D5w) 1,000 mls @ 50 mls/hr IV .Q20H [facility] Last Admin: 08/15/18 11:08 Dose: 1,000 mls Potassium Phosphate 30 mmol/ (Sodium Chloride) 510 mls @ 83.3 mls/hr IVPB NOW [facility] Stop: 08/15/18 17:38 Last Admin: 08/15/18 11:32 Dose: 510 mls Latanoprost (Xalatan 0.005% Oph Soln) 1 drop EA EYE HS [facility] Last Admin: 08/14/18 20:27 Dose: 1 drp Lorazepam (Ativan) 2 mg SLOW IVP Q1H PRN PRN Reason: Breakthrough agitation Stop: 09/05/18 22:27 Magnesium Oxide (Magnesium Oxide) 400 mg PO BIDPRN PRN PRN Reason: FOR SERUM MAG 1.4 - 2.0 Magnesium Oxide (Magnesium Oxide) 800 mg PO PRN PRN PRN Reason: FOR SERUM MAG < 1.4 Miscellaneous Medication (Ventilator Sedation Protocol) 1 each FS ASDIR [facility] Miscellaneous Medication (Phos-Nak) 1 pkt PO TIDPRN PRN PRN Reason: FOR PHOS LEVEL 1.0 - 1.8 Miscellaneous Medication (Phos-Nak) 2 pkt PO TIDPRN PRN PRN Reason: FOR PHOS LEVEL 0.5 - 1.0 Morphine Sulfate (Morphine) 2 mg SLOW IVP Q1H PRN PRN Reason: BREAKTHROUGH PAIN/Agitation Stop: 09/05/18 22:27 Discontinue Previous Narcotic Pain Medications And Benzodiazepines 1 each FS .ONE [facility] Stop: 09/05/18 22:27 Ccu Electrolyte (Replacement Protocol) 0 each FS PRN PRN PRN Reason: FOR ELECTROLYTE REPLACEMENT Ondansetron HCl (Zofran) 4 mg IVP Q6H PRN PRN Reason: Nausea/Vomiting Pantoprazole Sodium (Protonix) 40 mg IVP DAILY [facility] Last Admin: 08/15/18 08:33 Dose: 40 mg Potassium Chloride (K-Dur) 40 meq PO ASDIR PRN PRN Reason: FOR SERUM K+ 2.5 - 3.5 Potassium Chloride (Klor-Con) 40 meq PER TUBE ASDIR PRN PRN Reason: FOR SERUM K+ 2.5-3.5 Propofol (Diprivan) 1,000 mg IV INF PRN; Protocol PRN Reason: TO ACHIEVE GOAL RASS Stop: 09/05/18 22:27 Propofol (Diprivan Bolus) 20 mg IV Q5MIN PRN PRN Reason: BREAKTHROUGH AGITATION Stop: 09/05/18 22:27 Sodium Chloride (Flush - Normal Saline) 10 ml IVF Q12HR [facility] Last Admin: 08/15/18 08:33 Dose: 10 ml Sodium Chloride (Flush - Normal Saline) 10 ml IVF PRN PRN PRN Reason: Saline Flush Last Admin: 08/14/18 07:30 Dose: 10 ml Sodium Chloride ([place] Nasal [place] 0.65%) 0 ml EA NARE QIDPRN PRN PRN Reason: Nasal Congestion Sodium Chloride (Flush - Normal Saline) 10 ml IV DAILY [facility] Last Admin: 08/15/18 08:34 Dose: 10 ml Timolol Maleate (Timoptic 0.5% Oph Soln) 1 drop EA EYE BID [facility] Last Admin: 08/15/18 08:40 Dose: 1 drp
[2018-08-15] MEDS: Micafungin 100 MG in Sodium Chloride 0.9% 100 ML IVPB SCH (18:00)
[2018-08-15] MEDS: Latanoprost 0.005% Ophth Soln 2.5 ml Bottle EA EYE SCH (20:05)
--- NOTE | 2018-08-15 22:06 | PDOC.GSPN ---
Surgery Progress Note: Subj - Subjective Narrative: Patient stable. No air leak on chest tube and minimal output. Chest x-ray unchanged. After enemas, large amount of stool output through her colostomy and she is tolerating tube feeds. VAC is in place and I have asked the nurses to call me tomorrow for her VAC change. Her chest tube was removed and a Xeroform dressing placed. She continues to make minimal progress toward weaning. White count is still high, and her prognosis is poor. Surgery Progress Note: Obj - Vital signs Vital signs: Vital Signs - Most Recent Temp Pulse Resp BP Pulse Ox 99.6 F 110 H 15 91/57 L 100 08/15/18 20:00 08/15/18 20:05 08/15/18 20:00 08/15/18 14:25 08/15/18 18:54 Surgery Progress Note: Results - Labs Result Diagrams: 08/15/18 04:30 08/15/18 04:30
[2018-08-16] MEDS: Dextrose 5% in Water 1,000 ML IV SCH ×2 (05:12→23:23)
[2018-08-16 06:20] LABS: #Eosinphils 0.2 thou/uL (0.0-0.7); #Lymphocytes 1.2 thou/uL (1.20-3.40); #Monocytes 0.2 thou/uL (0.11-0.59); #Neutrophils 13.2 thou/uL (1.40-6.50); %Basophils 0.1 % (0.0-1.0); %Eosinophils 1.1 % (0.0-10.0); %Lymphocytes 8.3 % (21.0-51.0); %Monocytes 1.6 % (0.0-10.0); Mean Corpuscular HGB CONC 31.2 g/dL (32.0-36.0); Mean Corpuscular Hemoglobin 26.5 pg (27.0-31.0); Mean Corpuscular Volume 85.1 fL (78.0-98.0); Mean Platelet Volume 9.3 fL (7.4-10.4); Platelet Count 180 thou/uL (130-400); RBC Distribution Width 20.6 % (11.5-14.5); Red Blood Cell (RBC) Count 3.76 mill/uL (4.20-5.40); White Blood Cell (WBC) Count 14.8 thou/uL (4.8-10.8)
[2018-08-16 06:34] LABS: ALT (SGPT) 16 U/L (8-55); AST (SGOT) 39 U/L (5-34); Albumin 1.4 g/dL (3.4-4.8); Alkaline Phosphatase 164 U/L (40-150); Anion Gap 7 mmol/L (10-20); BUN (Urea Nitrogen) 27 mg/dL (9.8-20.1); Bilirubin, Total 0.3 mg/dL (0.2-1.2); Calc. Creatinine Clearance 105 mL/min (70-130); Calcium 7.2 mg/dL (7.8-10.44); Carbon Dioxide 31 mmol/L (23-31); Chloride 114 mmol/L (98-107); Estimated GFR-MDRD Greater than 90; Globulin 3.1 g/dL (2.4-3.5); Glucose 131 mg/dL (83-110); Potassium 4.1 mmol/L (3.5-5.1); Protein, Total 4.5 g/dL (6.0-8.3); Sodium 148 mmol/L (136-145)
[2018-08-16 06:54] LABS: Actual Bicarbonate (HCO3a) 29.1 mEq/L (22-28); Base Excess (BEa) 4.4 mEq/L (-2.0 to +3.0); CO2 Tension 44.1 mmHg (35.0-45.0); Calcium, Ionized 1.09 mmol/L (1.12-1.30); Carboxyhemoglobin (COHb) 0.7 gm% (0.0-3.0); Hemoglobin (Hb) 10.3 g/dL (12.0-16.0); O2 Tension (PaO2) 98.3 mmHg (> 60.0); pH, Arterial 7.44 (7.35-7.45)
[2018-08-16 06:57] LABS: ALV-art Gradient 131.775 (0-20); Peep/CPAP 7.5 cmH2O; Puncture Site RR
--- NOTE | 2018-08-16 08:19 | RAD ---
CHEST 1 VIEW: INDICATION: Intubation. COMPARISON: Prior exam dated 08/15/2018. FINDINGS: There is improvement in the diffuse airspace opacity in the right lung and left perihilar airspace op acities may reflect resolving pneumonia or edema. Persistent bilateral pleural effusions remain. Mo derate airspace opacities in the right lung and left perihilar region remain. No pneumothorax is mckay dent. ET tube and gastric catheter are unchanged. Right subclavian central venous catheter are unch anged. Previously seen left-sided thoracostomy tube has been removed. No definite pneumothorax is e vident. IMPRESSION: 1. Removal of left lateral thoracostomy tube without evidence of pneumothorax. 2. Some improvement in the airspace opacities seen bilaterally may reflect resolving edema or improv ing pneumonia. 3. Persistent bilateral pleural effusions and bilateral airspace disease. Continued followup is rec ommended. POS: BH
--- NOTE | 2018-08-16 09:16 | PRG ---
DATE OF SERVICE: SUBJECTIVE: Dee Monroy is an 83-year-old female, intubated in the vent and low-dose fentanyl at 25 mcg. She opens her eyes, but extremely weak. OBJECTIVE: VITAL SIGNS: Pulse is 113, blood pressure is 104/56, respirations 15, saturations 99%, temperature is 99.8. EXTREMITIES: Trace edema. CHEST: Decreased breath sounds. Bilateral rhonchi. CARDIAC: Normal S1 and S2. No gallops. ABDOMEN: No mass. LABORATORY DATA: White count 14,000, H and H 10 and 32, platelet count 180. PO2 is 98, pCO2 is 44, pH 7.44 on a rate of 8, 40%, 7.5 PEEP. Sodium 148, otherwise lytes are normal. Chest x-ray shows bilateral infiltrates, left greater than right. IMPRESSION: 1. Respiratory failure. 2. Abdominal sepsis, status post colostomy. 3. Urinary tract infection. 4. Severe deconditioning, advanced age. PLAN: Vent being adjusted. Continue antibiotics. So far all cultures are negative. We will wean slowly. Start PT. One-half hour of critical time. Job ID: [id number]
[2018-08-16] MEDS: Meropenem 2 GM, Admixture Fee 1 EACH in Sodium Chloride 0.9% 100 ML IVPB SCH ×3 (09:25→23:24)
[2018-08-16] MEDS: Enoxaparin Sodium 40 MG/0.4 ML SYRINGE SC SCH (09:25)
[2018-08-16] MEDS: Pantoprazole 40 MG VIAL IVP SCH (09:26)
[2018-08-16] MEDS: Timolol 0.5% Ophth Soln 5 ml Bottle EA EYE SCH ×2 (09:30→20:43)
--- NOTE | 2018-08-16 11:43 | PDOC.PN ---
- Subjective Encounter Start Date: 08/16/18 Encounter Start Time: 10:00 Patient seen and examined. on vent, No overnight events - Objective Resuscitation Status - Order Detail: 08/05/18 13:01 Resuscitation Status Routine Resuscitation Status: FULL: Full Resuscitation MAR Reviewed: Yes Vital Signs & Weight: Vital Signs (12 hours) Temp Pulse Resp BP Pulse Ox 08/16/18 10:25 105 H 101/51 L 08/16/18 09:30 113 H 104/56 L 08/16/18 08:00 97.6 F 08/16/18 07:49 113 H 104/56 L 08/16/18 06:00 15 08/16/18 04:00 99.8 F H 17 08/16/18 02:10 110 H 08/16/18 02:09 107 H 15 100 08/16/18 02:00 17 08/16/18 00:00 14 Weight Admit Weight 164 lb 0.383 oz Weight 164 lb 10.965 oz Most Recent Monitor Data Heart Rate from ECG 115 NIBP 100/53 NIBP BP-Mean 68 Respiration from ECG 12 SpO2 100 I&O: 08/15/18 08/16/18 08/17/18 06:59 06:59 06:59 Intake Total 1463.7 3241 Output Total 2215 1895 200 Balance -751.3 1346 -200 Result Diagrams: 08/16/18 05:58 08/16/18 05:58 Radiology Reviewed by me: Yes (chest xray reviewed) EKG Reviewed by me: Yes (nsr) Phys Exam - Physical Examination Constitutional: NAD on vent HEENT: PERRLA, sclera anicteric Neck: no JVD, supple Respiratory: no wheezing, no rales, no rhonchi Cardiovascular: RRR, no significant murmur, no rub wound vac+ SRAVAN drain+ Musculoskeletal: no edema, pulses present scd+ Lymphatic: no nodes Skin: no rash, normal turgor Dx/Plan (1) Diverticulitis of colon with perforation Code(s): K57.20 - DVTRCLI OF LG INT W PERFORATION AND ABSCESS W/O BLEEDING Status: Acute (2) Necrotizing fasciitis Code(s): M72.6 - NECROTIZING FASCIITIS Status: Acute Comment: left flank, s/ p I & D, (3) S/P laparotomy Status: Acute Comment: for perforated colon now with colostomy, wound closed with wound vac (4) S/P colostomy Code(s): Z93.3 - COLOSTOMY STATUS Status: Acute (5) Acute respiratory failure Code(s): J96.00 - ACUTE RESPIRATORY FAILURE, UNSP W HYPOXIA OR HYPERCAPNIA Status: Acute Qualifiers: Respiratory failure complication: hypoxia Qualified Code(s): J96.01 - Acute respiratory failure with hypoxia (6) S/P chest tube placement Code(s): Z93.8 - OTHER ARTIFICIAL OPENING STATUS Status: Acute Comment: for air in mediastinum and chest (7) Community acquired bacterial pneumonia Code(s): J15.9 - UNSPECIFIED BACTERIAL PNEUMONIA Status: Acute (8) Demand ischemia of myocardium Code(s): I24.8 - OTHER FORMS OF ACUTE ISCHEMIC HEART DISEASE Status: Acute (9) Encephalopathy in sepsis Code(s): G93.41 - METABOLIC ENCEPHALOPATHY Status: Acute Comment: as well as due to metabolic factors (10) High anion gap metabolic acidosis Code(s): E87.2 - ACIDOSIS Status: Acute (11) Lactic acidosis Code(s): E87.2 - ACIDOSIS Status: Acute (12) Sepsis associated hypotension Code(s): A41.9 - SEPSIS, UNSPECIFIED ORGANISM; I95.9 - HYPOTENSION, UNSPECIFIED Status: Acute (13) Sepsis with acute organ dysfunction Code(s): A41.9 - SEPSIS, UNSPECIFIED ORGANISM; R65.20 - SEVERE SEPSIS WITHOUT SEPTIC SHOCK Status: Acute (14) UTI (urinary tract infection) Status: Acute (15) Anemia of chronic disease Code(s): D63.8 - ANEMIA IN OTHER CHRONIC DISEASES CLASSIFIED ELSEWHERE Status : Chronic Comment: with microcytosis (16) Anxiety and depression Code(s): F41.9 - ANXIETY DISORDER, UNSPECIFIED; F32.9 - MAJOR DEPRESSIVE DISORDER, SINGLE EPISODE, UNSPECIFIED Status: Chronic (17) Dyslipidemia Code(s): E78.5 - HYPERLIPIDEMIA, UNSPECIFIED Status: Chronic (18) Abnormal blood electrolyte level Code(s): E87.8 - OTH DISORDERS OF ELECTROLYTE AND FLUID BALANCE, NEC Status: Acute - Plan cont current plan of care, plan discussed w/ family, continue antibiotics, respiratory therapy * continue meropenam and micafungin * vent per pulmonary * wound care * supportive care * medication reviewed as below * symptomatic treatment * discussed with granddaughter bedside. Review of Systems - Review of Systems Other: unable to review due to intubated status - Medications/Allergies Allergies/Adverse Reactions: Allergies Allergy/AdvReac Type Severity Reaction Status Date / Time Sulfa (Sulfonamide Allergy Verified 08/05/18 15:43 Antibiotics) Medications: Current Medications Albuterol/Ipratropium (Duoneb) 3 ml NEB [id number] PRN PRN Reason: SOB &/or Wheezing Albuterol/Ipratropium (Duoneb) 3 ml NEB [id number] [facility] Last Admin: 08/16/18 10:25 Dose: 3 ml Artificial Tears (Tears Renewed 15ml Bottle) 2 drop EA EYE PRN PRN PRN Reason: Dry Eyes Enoxaparin Sodium (Lovenox) 40 mg SC 0900 [facility] Last Admin: 08/16/18 09:25 Dose: 40 mg Hydralazine HCl (Apresoline) 10 mg SLOW IVP Q4H PRN PRN Reason: SBP > 180 and HR < 70 Fentanyl Citrate 2,000 mcg/ (Sodium Chloride) 100 mls @ 0 mls/hr IV INF [facility]; Protocol Stop: 09/05/18 22:27 Last Admin: 08/15/18 00:45 Dose: 100 mls Fentanyl Citrate (Fentanyl Bolus) 250 mls @ 0 mls/hr IVPB PRN PRN PRN Reason: Breakthrough pain/agitation Stop: 09/05/18 22:27 Meropenem 2 gm/ Miscellaneous Medication 1 each/ Sodium Chloride 100 mls @ 0 mls/hr IVPB 0800,1600,2359 [facility] Last Admin: 08/16/18 09:25 Dose: 100 mls Micafungin Sodium 100 mg/ (Sodium Chloride) 100 mls @ 100 mls/hr IVPB Q24HR [facility] Last Admin: 08/15/18 18:00 Dose: 100 mls Potassium Chloride 40 meq/ (Sodium Chloride) 270 mls @ 135 mls/hr IVPB ASDIR PRN PRN Reason: FOR SERUM K+ 2.5 - 3.5 Potassium Chloride 40 meq/ (Device) 100 mls @ 50 mls/hr IVPB ASDIR PRN PRN Reason: FOR SERUM K+ 2.5 - 3.5 Last Admin: 08/15/18 05:01 Dose: 100 mls Magnesium Sulfate 1 gm/ Sodium (Chloride) 102 mls @ 102 mls/hr IV PRN PRN PRN Reason: MAG LEVEL 1.4 - 2.0 Last Admin: 08/14/18 04:26 Dose: 102 mls Magnesium Sulfate 2 gm/ Device 100 mls @ 100 mls/hr IVPB ASDIR PRN PRN Reason: MAGNESIUM < 1.4 Potassium Phosphate 9 mmol/ (Sodium Chloride) 103 mls @ 25.75 mls/hr IVPB ASDIR PRN PRN Reason: Phosphate 1.0-1.8 Potassium Phosphate 12 mmol/ (Sodium Chloride) 254 mls @ 63.5 mls/hr IV ASDIR PRN PRN Reason: Serum phosphate 0.5-0.9 Potassium Phosphate 15 mmol/ (Sodium Chloride) 255 mls @ 63.75 mls/hr IV ASDIR PRN PRN Reason: Serum Phos < 0.5 Dextrose/Water (D5w) 1,000 mls @ 50 mls/hr IV .Q20H [facility] Last Admin: 08/16/18 05:12 Dose: 1,000 mls Latanoprost (Xalatan 0.005% Ophth Soln) 1 drop EA EYE HS [facility] Last Admin: 08/15/18 20:05 Dose: 1 drp Magnesium Oxide (Magnesium Oxide) 400 mg PO BIDPRN PRN PRN Reason: FOR SERUM MAG 1.4 - 2.0 Magnesium Oxide (Magnesium Oxide) 800 mg PO PRN PRN PRN Reason: FOR SERUM MAG < 1.4 Miscellaneous Medication (Ventilator Sedation Protocol) 1 each FS ASDIR [facility] Miscellaneous Medication (Phos-Nak) 1 pkt PO TIDPRN PRN PRN Reason: FOR PHOS LEVEL 1.0 - 1.8 Miscellaneous Medication (Phos-Nak) 2 pkt PO TIDPRN PRN PRN Reason: FOR PHOS LEVEL 0.5 - 1.0 Morphine Sulfate (Morphine) 2 mg SLOW IVP Q1H PRN PRN Reason: BREAKTHROUGH PAIN/Agitation Stop: 09/05/18 22:27 Discontinue Previous Narcotic Pain Medications And Benzodiazepines 1 each FS .ONE [facility] Stop: 09/05/18 22:27 Ccu Electrolyte (Replacement Protocol) 0 each FS PRN PRN PRN Reason: FOR ELECTROLYTE REPLACEMENT Ondansetron HCl (Zofran) 4 mg IVP Q6H PRN PRN Reason: Nausea/Vomiting Pantoprazole Sodium (Protonix) 40 mg IVP DAILY [facility] Last Admin: 08/16/18 09:26 Dose: 40 mg Potassium Chloride (K-Dur) 40 meq PO ASDIR PRN PRN Reason: FOR SERUM K+ 2.5 - 3.5 Potassium Chloride (Klor-Con) 40 meq PER TUBE ASDIR PRN PRN Reason: FOR SERUM K+ 2.5-3.5 Propofol (Diprivan) 1,000 mg IV INF PRN; Protocol PRN Reason: TO ACHIEVE GOAL RASS Stop: 09/05/18 22:27 Propofol (Diprivan Bolus) 20 mg IV Q5MIN PRN PRN Reason: BREAKTHROUGH AGITATION Stop: 09/05/18 22:27 Sodium Chloride (Flush - Normal Saline) 10 ml IVF Q12HR [facility] Last Admin: 08/16/18 09:29 Dose: 10 ml Sodium Chloride (Flush - Normal Saline) 10 ml IVF PRN PRN PRN Reason: Saline Flush Last Admin: 08/14/18 07:30 Dose: 10 ml Sodium Chloride ([place] Nasal [place] 0.65%) 0 ml EA NARE QIDPRN PRN PRN Reason: Nasal Congestion Sodium Chloride (Flush - Normal Saline) 10 ml IV DAILY [facility] Last Admin: 08/16/18 09:29 Dose: 10 ml Timolol Maleate (Timoptic 0.5% [facility] Sol) 1 drop EA EYE BID [facility] Last Admin: 08/16/18 09:30 Dose: 1 drp
[2018-08-16] MEDS ORDERED: Budesonide 0.5 MG/2 ML NEB ONE (18:44)
[2018-08-16] MEDS: Micafungin 100 MG in Sodium Chloride 0.9% 100 ML IVPB SCH (18:45)
[2018-08-16] MEDS: Latanoprost 0.005% Ophth Soln 2.5 ml Bottle EA EYE SCH (20:42)
--- NOTE | 2018-08-16 21:15 | PDOC.GSPN ---
Surgery Progress Note: Subj - Subjective Narrative: Follow-up the patient with wound care today. The midline incision looks good but the flank wound has a lot of necrotic sloughing tissue. This was debrided at the bedside but the wound is extremely extensive and extends up into the thoracic cavity and downward into the abdominal cavity. There is also extension into the retroperitoneum. Exposure and debridement in these areas would be extremely difficult and hazardous. We are going to try an irrigating VAC to see if we can control the infection. Her surgical options are quite poor Surgery Progress Note: Obj - Vital signs Vital signs: Vital Signs - Most Recent Temp Pulse Resp BP Pulse Ox 98.0 F 110 H 15 116/60 98 08/16/18 20:00 08/16/18 20:43 08/16/18 18:32 08/16/18 14:23 08/16/18 18:32 Surgery Progress Note: Results - Labs Result Diagrams: 08/16/18 05:58 08/16/18 05:58
[2018-08-17 05:29] LABS: #Eosinphils 0.1 thou/uL (0.0-0.7); #Lymphocytes 1.5 thou/uL (1.20-3.40); #Monocytes 0.2 thou/uL (0.11-0.59); #Neutrophils 10.4 thou/uL (1.40-6.50); %Eosinophils 0.8 % (0.0-10.0); %Lymphocytes 12.3 % (21.0-51.0); %Monocytes 1.6 % (0.0-10.0); %Neutrophils 85.3 % (42.0-75.0); ALT (SGPT) 18 U/L (8-55); AST (SGOT) 37 U/L (5-34); Albumin 1.4 g/dL (3.4-4.8); Alkaline Phosphatase 158 U/L (40-150); Anion Gap 10 mmol/L (10-20); BUN (Urea Nitrogen) 22 mg/dL (9.8-20.1); Bilirubin, Total 0.3 mg/dL (0.2-1.2); Calc. Creatinine Clearance 118 mL/min (70-130); Carbon Dioxide 28 mmol/L (23-31); Chloride 113 mmol/L (98-107); Estimated GFR-MDRD Greater than 90; Glucose 115 mg/dL (83-110); Hemoglobin 9.7 g/dL (12.0-16.0); Hypochromia SLIGHT = 6-15 cells (100X) (0-5/hpf); MDiff Complete? YES; Mean Corpuscular HGB CONC 30.9 g/dL (32.0-36.0); Mean Corpuscular Hemoglobin 26.2 pg (27.0-31.0); Mean Platelet Volume 9.6 fL (7.4-10.4); Platelet Count 201 thou/uL (130-400); Platelet Morphology Comment Appears Adequate; Potassium 3.7 mmol/L (3.5-5.1); Protein, Total 4.4 g/dL (6.0-8.3); Red Blood Cell (RBC) Count 3.71 mill/uL (4.20-5.40); Sodium 147 mmol/L (136-145); White Blood Cell (WBC) Count 12.2 thou/uL (4.8-10.8)
[2018-08-17 07:35] LABS: Actual Bicarbonate (HCO3a) 26.3 mEq/L (22-28); Base Excess (BEa) 3.1 mEq/L (-2.0 to +3.0); CO2 Tension 34.9 mmHg (35.0-45.0); Calcium, Ionized 1.09 mmol/L (1.12-1.30); Hemoglobin (Hb) 10.4 g/dL (12.0-16.0); O2 Tension (PaO2) 91.8 mmHg (> 60.0); Potassium - ABG Lab 3.63 mmol/L (3.70-5.30)
[2018-08-17 07:37] LABS: ALV-art Gradient 149.775 (0-20); Puncture Site RB
[2018-08-17] MEDS ORDERED: Labetalol HCl 100 MG/20 ML VIAL ONE ×2 (07:44→08:22)
--- NOTE | 2018-08-17 08:35 | RAD ---
PORTABLE CHEST: Comparison: Prior day's exam. History: Respiratory distress. FINDINGS: Endotracheal and NG tubes are in satisfactory position. Interstitial and alveolar lung changes and pl eural changes in the basis all appear stable as compared to the prior exam. IMPRESSION: Stable exam. POS: MELANIE
[2018-08-17] MEDS ORDERED: Furosemide 20 MG/2 ML VIAL SLOW IVP SCH (08:45)
[2018-08-17] MEDS ORDERED: Albumin 25% 25 GM/100 ML BOT IVPB SCH ×2 (08:46→12:00)
[2018-08-17] MEDS: Meropenem 2 GM, Admixture Fee 1 EACH in Sodium Chloride 0.9% 100 ML IVPB SCH ×3 (09:09→23:36)
[2018-08-17] MEDS: Enoxaparin Sodium 40 MG/0.4 ML SYRINGE SC SCH (09:11)
[2018-08-17] MEDS: Timolol 0.5% Ophth Soln 5 ml Bottle EA EYE SCH ×2 (09:11→20:45)
[2018-08-17] MEDS: Pantoprazole 40 MG VIAL IVP SCH (09:11)
--- NOTE | 2018-08-17 09:22 | PRG ---
DATE OF SERVICE: 08/17/2018 SUBJECTIVE: This morning, she is awake, responsive, weak. OBJECTIVE: VITAL SIGNS: Pulse 120, blood pressure is 129/75, saturations 100%, respiratory rate 21. I's and O's have been consistently and 2194. CHEST: Bilateral rhonchi and crackles. CARDIAC: Normal S1 and S2. No gallops. ABDOMEN: No masses. LABORATORY DATA: White count 12,000, H and H of 9 and 31, platelet count 201. PO2 is 91, pCO2 of 34, pH 7.51. Lytes are normal. Chloride 131. Albumin is 1.4. IMPRESSION: 1. Severe nutritional deficit. 2. Status post lap, intra-abdominal sepsis. 3. Apparently left pleural effusion. PLAN: Continue aggressive PT, nutrition. Try her on Lasix. Hopefully, wean off the vent. Broad-spectrum antibiotics. One-half hour critical time. Job ID: [id number]
[2018-08-17] MEDS ORDERED: Magnesium 2 GM/50 ML 2 GM in Premix Bag 1 BAG IVPB SCH (10:15)
--- NOTE | 2018-08-17 12:30 | PDOC.PN ---
- Subjective Encounter Start Date: 08/17/18 Encounter Start Time: 09:00 today she is on SIMV, on chair, Patient seen and examined. No overnight events - Objective Resuscitation Status - Order Detail: 08/05/18 13:01 Resuscitation Status Routine Resuscitation Status: FULL: Full Resuscitation MAR Reviewed: Yes Vital Signs & Weight: Vital Signs (12 hours) Temp Pulse Resp BP Pulse Ox 08/17/18 12:00 25 H 08/17/18 10:02 113 H 146/66 H 08/17/18 10:00 23 H 08/17/18 09:11 121 H 137/75 08/17/18 08:59 121 H 137/75 08/17/18 08:00 18 08/17/18 07:59 100 08/17/18 07:12 121 H 137/75 08/17/18 07:00 99 F 08/17/18 06:00 19 08/17/18 05:00 99.0 F 08/17/18 04:00 24 H 08/17/18 02:20 108 H 18 98 08/17/18 02:00 17 Weight Admit Weight 164 lb 0.383 oz Weight 164 lb 10.965 oz Most Recent Monitor Data Heart Rate from ECG 103 NIBP 126/51 NIBP BP-Mean 76 Respiration from ECG 44 SpO2 100 I&O: 08/16/18 08/17/18 08/18/18 06:59 06:59 06:59 Intake Total 3241 2138 50 Output Total 1895 2195 1505 Balance 3696 -61 -9995 Result Diagrams: 08/17/18 04:35 08/17/18 04:35 Radiology Reviewed by me: Yes (chest xray reviewed) EKG Reviewed by me: Yes (nsr) Phys Exam - Physical Examination Constitutional: NAD on vent HEENT: PERRLA, sclera anicteric OG, ET in place Neck: no JVD, supple Respiratory: no wheezing, no rales, no rhonchi anteriorly Cardiovascular: RRR, no significant murmur, no rub tachycardia Gastrointestinal: soft wound vac+, SRAVAN drain+, aponte+ Musculoskeletal: pulses present, edema present unable to assess Lymphatic: no nodes Skin: no rash, normal turgor Dx/Plan (1) Diverticulitis of colon with perforation Code(s): K57.20 - DVTRCLI OF LG INT W PERFORATION AND ABSCESS W/O BLEEDING Status: Acute (2) Necrotizing fasciitis Code(s): M72.6 - NECROTIZING FASCIITIS Status: Acute Comment: left flank, s/ p I & D, (3) S/P laparotomy Status: Acute Comment: for perforated colon now with colostomy, wound closed with wound vac (4) S/P colostomy Code(s): Z93.3 - COLOSTOMY STATUS Status: Acute (5) Acute respiratory failure Code(s): J96.00 - ACUTE RESPIRATORY FAILURE, UNSP W HYPOXIA OR HYPERCAPNIA Status: Acute Qualifiers: Respiratory failure complication: hypoxia Qualified Code(s): J96.01 - Acute respiratory failure with hypoxia (6) S/P chest tube placement Code(s): Z93.8 - OTHER ARTIFICIAL OPENING STATUS Status: Acute Comment: for air in mediastinum and chest (7) Community acquired bacterial pneumonia Code(s): J15.9 - UNSPECIFIED BACTERIAL PNEUMONIA Status: Acute (8) Demand ischemia of myocardium Code(s): I24.8 - OTHER FORMS OF ACUTE ISCHEMIC HEART DISEASE Status: Acute (9) Encephalopathy in sepsis Code(s): G93.41 - METABOLIC ENCEPHALOPATHY Status: Acute Comment: as well as due to metabolic factors (10) High anion gap metabolic acidosis Code(s): E87.2 - ACIDOSIS Status: Acute (11) Lactic acidosis Code(s): E87.2 - ACIDOSIS Status: Acute (12) Sepsis associated hypotension Code(s): A41.9 - SEPSIS, UNSPECIFIED ORGANISM; I95.9 - HYPOTENSION, UNSPECIFIED Status: Acute (13) Sepsis with acute organ dysfunction Code(s): A41.9 - SEPSIS, UNSPECIFIED ORGANISM; R65.20 - SEVERE SEPSIS WITHOUT SEPTIC SHOCK Status: Acute (14) UTI (urinary tract infection) Status: Acute (15) Anemia of chronic disease Code(s): D63.8 - ANEMIA IN OTHER CHRONIC DISEASES CLASSIFIED ELSEWHERE Status : Chronic Comment: with microcytosis (16) Anxiety and depression Code(s): F41.9 - ANXIETY DISORDER, UNSPECIFIED; F32.9 - MAJOR DEPRESSIVE DISORDER, SINGLE EPISODE, UNSPECIFIED Status: Chronic (17) Dyslipidemia Code(s): E78.5 - HYPERLIPIDEMIA, UNSPECIFIED Status: Chronic (18) Abnormal blood electrolyte level Code(s): E87.8 - OTH DISORDERS OF ELECTROLYTE AND FLUID BALANCE, NEC Status: Acute - Plan cont current plan of care, continue antibiotics, respiratory therapy * continue meropenam and micafungin * vent as per pulmonary * medication reviewed as below * symptomatic treatment * supportive care * wound care. Review of Systems - Review of Systems Other: unable to review due to intubated status - Medications/Allergies Allergies/Adverse Reactions: Allergies Allergy/AdvReac Type Severity Reaction Status Date / Time Sulfa (Sulfonamide Allergy Verified 08/05/18 15:43 Antibiotics) Medications: Current Medications Albuterol/Ipratropium (Duoneb) 3 ml NEB [id number] PRN PRN Reason: SOB &/or Wheezing Albuterol/Ipratropium (Duoneb) 3 ml NEB [id number] [facility] Last Admin: 08/17/18 10:02 Dose: 3 ml Artificial Tears (Tears Renewed 15ml Bottle) 2 drop EA EYE PRN PRN PRN Reason: Dry Eyes Enoxaparin Sodium (Lovenox) 40 mg SC 0900 [facility] Last Admin: 08/17/18 09:11 Dose: 40 mg Hydralazine HCl (Apresoline) 10 mg SLOW IVP Q4H PRN PRN Reason: SBP > 180 and HR < 70 Meropenem 2 gm/ Miscellaneous Medication 1 each/ Sodium Chloride 100 mls @ 0 mls/hr IVPB 0800,1600,2359 [facility] Last Admin: 08/17/18 09:09 Dose: 100 mls Micafungin Sodium 100 mg/ (Sodium Chloride) 100 mls @ 100 mls/hr IVPB Q24HR [facility] Last Admin: 08/16/18 18:45 Dose: 100 mls Potassium Chloride 40 meq/ (Sodium Chloride) 270 mls @ 135 mls/hr IVPB ASDIR PRN PRN Reason: FOR SERUM K+ 2.5 - 3.5 Potassium Chloride 40 meq/ (Device) 100 mls @ 50 mls/hr IVPB ASDIR PRN PRN Reason: FOR SERUM K+ 2.5 - 3.5 Last Admin: 08/15/18 05:01 Dose: 100 mls Magnesium Sulfate 1 gm/ Sodium (Chloride) 102 mls @ 102 mls/hr IV PRN PRN PRN Reason: MAG LEVEL 1.4 - 2.0 Last Admin: 08/14/18 04:26 Dose: 102 mls Magnesium Sulfate 2 gm/ Device 100 mls @ 100 mls/hr IVPB ASDIR PRN PRN Reason: MAGNESIUM < 1.4 Potassium Phosphate 9 mmol/ (Sodium Chloride) 103 mls @ 25.75 mls/hr IVPB ASDIR PRN PRN Reason: Phosphate 1.0-1.8 Potassium Phosphate 12 mmol/ (Sodium Chloride) 254 mls @ 63.5 mls/hr IV ASDIR PRN PRN Reason: Serum phosphate 0.5-0.9 Potassium Phosphate 15 mmol/ (Sodium Chloride) 255 mls @ 63.75 mls/hr IV ASDIR PRN PRN Reason: Serum Phos < 0.5 Latanoprost (Xalatan 0.005% Oph Soln) 1 drop EA EYE HS [facility] Last Admin: 08/16/18 20:42 Dose: 1 drp Magnesium Oxide (Magnesium Oxide) 400 mg PO BIDPRN PRN PRN Reason: FOR SERUM MAG 1.4 - 2.0 Magnesium Oxide (Magnesium Oxide) 800 mg PO PRN PRN PRN Reason: FOR SERUM MAG < 1.4 Miscellaneous Medication (Ventilator Sedation Protocol) 1 each FS ASDIR [facility] Miscellaneous Medication (Phos-Nak) 1 pkt PO TIDPRN PRN PRN Reason: FOR PHOS LEVEL 1.0 - 1.8 Miscellaneous Medication (Phos-Nak) 2 pkt PO TIDPRN PRN PRN Reason: FOR PHOS LEVEL 0.5 - 1.0 Morphine Sulfate (Morphine) 2 mg SLOW IVP Q4H PRN PRN Reason: PAIN/DYSPNEA Discontinue Previous Narcotic Pain Medications And Benzodiazepines 1 each FS .ONE [facility] Stop: 09/05/18 22:27 Ccu Electrolyte (Replacement Protocol) 0 each FS PRN PRN PRN Reason: FOR ELECTROLYTE REPLACEMENT Ondansetron HCl (Zofran) 4 mg IVP Q6H PRN PRN Reason: Nausea/Vomiting Pantoprazole Sodium (Protonix) 40 mg IVP DAILY [facility] Last Admin: 08/17/18 09:11 Dose: 40 mg Potassium Chloride (K-Dur) 40 meq PO ASDIR PRN PRN Reason: FOR SERUM K+ 2.5 - 3.5 Potassium Chloride (Klor-Con) 40 meq PER TUBE ASDIR PRN PRN Reason: FOR SERUM K+ 2.5-3.5 Propofol (Diprivan) 1,000 mg IV INF PRN; Protocol PRN Reason: TO ACHIEVE GOAL RASS Stop: 09/05/18 22:27 Propofol (Diprivan Bolus) 20 mg IV Q5MIN PRN PRN Reason: BREAKTHROUGH AGITATION Stop: 09/05/18 22:27 Sodium Chloride (Flush - Normal Saline) 10 ml IVF Q12HR [facility] Last Admin: 08/17/18 09:11 Dose: 10 ml Sodium Chloride (Flush - Normal Saline) 10 ml IVF PRN PRN PRN Reason: Saline Flush Last Admin: 08/14/18 07:30 Dose: 10 ml Sodium Chloride ([place] Nasal [place] 0.65%) 0 ml EA NARE QIDPRN PRN PRN Reason: Nasal Congestion Sodium Chloride (Flush - Normal Saline) 10 ml IV DAILY [facility] Last Admin: 08/17/18 09:11 Dose: 10 ml Timolol Maleate (Timoptic 0.5% [facility]) 1 drop EA EYE BID [facility] Last Admin: 08/17/18 09:11 Dose: 1 drp
[2018-08-17] MEDS: Morphine 2 MG/ML SYRINGE SLOW IVP PRN ×2 (14:37→20:42)
--- NOTE | 2018-08-17 14:53 | PDOC.GSPN ---
Surgery Progress Note: Subj - Subjective Narrative: Patient is doing better from a respiratory standpoint may be able to extubate tomorrow. Still seems to be tolerating her tube feeds without problems. SRAVAN drainage is clear and serous as is the irrigating VAC drainage. Abdomen is soft and nondistended a little tender to palpation in the left lower quadrant and right lower quadrant. Assessment/plan: Doing well but with concerns about her retroperitoneal and flank wound. I debrided this at the bedside and placed in irrigating VAC on Thursday. I will see her with the wound care team tomorrow. If it looks worse she may require operative debridement. I'm going to hold her tube feeds after midnight just in case. Surgery Progress Note: Obj - Vital signs Vital signs: Vital Signs - Most Recent Temp Pulse Resp BP Pulse Ox 99 F 97 20 126/51 L 100 08/17/18 07:00 08/17/18 12:55 08/17/18 14:00 08/17/18 12:55 08/17/18 11:55 Surgery Progress Note: Results - Labs Result Diagrams: 08/17/18 04:35 08/17/18 04:35 Lab results: Laboratory Results - last 24 hr 08/17/18 08/17/18 08/17/18 04:35 04:35 07:27 WBC 12.2 H RBC 3.71 L Hgb 9.7 L Hct 31.5 L MCV 85.0 MCH 26.2 L MCHC 30.9 L RDW 21.0 H Plt Count 201 MPV 9.6 Neutrophils % 85.3 H Neutrophils % (Manual) Not Reportable Lymphocytes % 12.3 L Monocytes % 1.6 Eosinophils % 0.8 Basophils % 0.0 Neutrophils # 10.4 H Lymphocytes # 1.5 Monocytes # 0.2 Eosinophils # 0.1 Basophils # 0.0 Hypochromia SLIGHT = 6-15 cells Plt Morphology Comment Appears Adequate Specimen Type ARTERIAL Puncture Site RB Bicarbonate Actual 26.3 ABG pH 7.50 H ABG pCO2 34.9 L ABG pO2 91.8 H ABG O2 Sat Calc/Caty 97.7 ABG O2 Content 14.2 L ABG Base Excess 3.1 H ABG Hematocrit 31.0 L ABG Hemoglobin 10.4 L ABG Oxyhemoglobin 96.4 ABG Carboxyhemoglobin 1.0 ABG Methemoglobin 0.30 ABG Deoxyhemoglobin 2.3 Christiano Test POSITIVE A-a O2 Gradient 149.775 H Ionized Calcium 1.09 L Mode of Support SIMV % Minute Volume 7.7 Mechanical Rate 8 Inspired O2 40 Tidal Volume 500 Pressure Support 14 PEEP or CPAP 5.0 Sodium 147 H 143 Potassium 3.7 3.63 L Chloride 113 H 112 H Carbon Dioxide 28 Anion Gap 10 BUN 22 H Creatinine 0.41 L Estimated GFR (MDRD) Greater than 90 Glucose 115 H Calcium 7.0 L Total Bilirubin 0.3 AST 37 H ALT 18 Alkaline Phosphatase 158 H Serum Total Protein 4.4 L Albumin 1.4 L Globulin 3.0 Albumin/Globulin Ratio 0.5 L
[2018-08-17] MEDS: Micafungin 100 MG in Sodium Chloride 0.9% 100 ML IVPB SCH (18:50)
[2018-08-17] MEDS: Latanoprost 0.005% Ophth Soln 2.5 ml Bottle EA EYE SCH (20:41)
[2018-08-18] MEDS: Morphine 2 MG/ML SYRINGE SLOW IVP PRN ×3 (04:25→21:19)
[2018-08-18 05:12] LABS: #Eosinphils 0.1 thou/uL (0.0-0.7); #Monocytes 0.2 thou/uL (0.11-0.59); #Neutrophils 6.5 thou/uL (1.40-6.50); %Eosinophils 1.3 % (0.0-10.0); %Lymphocytes 12.4 % (21.0-51.0); %Neutrophils 83.3 % (42.0-75.0); Mean Corpuscular HGB CONC 30.8 g/dL (32.0-36.0); Mean Corpuscular Hemoglobin 26.3 pg (27.0-31.0); Mean Corpuscular Volume 85.3 fL (78.0-98.0); Mean Platelet Volume 9.4 fL (7.4-10.4); Platelet Count 202 thou/uL (130-400); Red Blood Cell (RBC) Count 3.43 mill/uL (4.20-5.40); White Blood Cell (WBC) Count 7.9 thou/uL (4.8-10.8)
[2018-08-18 05:36] LABS: ALT (SGPT) 16 U/L (8-55); AST (SGOT) 30 U/L (5-34); Albumin 1.7 g/dL (3.4-4.8); Alkaline Phosphatase 132 U/L (40-150); Anion Gap 9 mmol/L (10-20); BUN (Urea Nitrogen) 23 mg/dL (9.8-20.1); Bilirubin, Total 0.4 mg/dL (0.2-1.2); Calc. Creatinine Clearance 121 mL/min (70-130); Calcium 7.2 mg/dL (7.8-10.44); Carbon Dioxide 31 mmol/L (23-31); Chloride 110 mmol/L (98-107); Estimated GFR-MDRD Greater than 90; Globulin 2.8 g/dL (2.4-3.5); Glucose 92 mg/dL (83-110); Magnesium 2.1 mg/dL (1.6-2.6); Potassium 3.3 mmol/L (3.5-5.1); Protein, Total 4.5 g/dL (6.0-8.3); Sodium 147 mmol/L (136-145)
[2018-08-18] MEDS: Potassium Chloride 40 MEQ in Premix Bag 1 BAG IVPB PRN (06:44)
[2018-08-18 07:02] LABS: Actual Bicarbonate (HCO3a) 33.3 mEq/L (22-28); Base Excess (BEa) 8.9 mEq/L (-2.0 to +3.0); CO2 Tension 45.2 mmHg (35.0-45.0); Carboxyhemoglobin (COHb) 1.5 gm% (0.0-3.0); Hemoglobin (Hb) 9.8 g/dL (12.0-16.0); O2 Tension (PaO2) 78.6 mmHg (> 60.0); Potassium - ABG Lab 3.32 mmol/L (3.70-5.30); Puncture Site RRA; pH, Arterial 7.49 (7.35-7.45)
--- NOTE | 2018-08-18 07:43 | RAD ---
CHEST 1 VIEW: Date: 08/18/18 INDICATION: Intubation. COMPARISON: Prior exam dated 08/17/18. FINDINGS: ET tube, gastric catheter, and right subclavian central venous catheter are unchanged. Diffuse parenc hymal opacities of the right lung and left infrahilar region are again seen. The left perihilar opaci ties have slightly worsened. No pneumothorax is evident. Small bilateral pleural effusions persist. IMPRESSION: 1. Stable tubes and lines. 2. Worsening left perihilar air space opacity may reflect worsening edema or pneumonia. Right lung o pacities remain similar. 3. No pneumothorax. POS: BH
[2018-08-18] MEDS: Meropenem 2 GM, Admixture Fee 1 EACH in Sodium Chloride 0.9% 100 ML IVPB SCH ×2 (08:32→15:37)
[2018-08-18] MEDS: Pantoprazole 40 MG VIAL IVP SCH (08:33)
[2018-08-18] MEDS: Enoxaparin Sodium 40 MG/0.4 ML SYRINGE SC SCH (08:33)
--- NOTE | 2018-08-18 09:09 | PRG ---
DATE OF SERVICE: 08/18/2018 SUBJECTIVE: Dee Moffett remains intubated on the vent and functioning. X-ray today shows worsening bilateral infiltrates, right greater than left. Otherwise, she is quite responsive on the vent. OBJECTIVE: VITAL SIGNS: Pulse 133, blood pressure 173/80, saturations are 96%, and respirations 24. CHEST: Extensive rhonchi and crackles. CARDIAC: Normal S1 and S2. No gallops. ABDOMEN: No masses. LABORATORY DATA: White count 7000, hemoglobin and hematocrit of 9 and 29, platelet count 202. Lytes are normal. Potassium 3.3. PO2 is 78, pCO2 is 45, and pH 7.49 on a rate of 4. IMPRESSION: 1. Respiratory failure. 2. Severe nutritional deficit. 3. Intraabdominal abscess perforation. 4. Probably acute respiratory distress syndrome. PLAN: Pulmonary gray at this stage, hold of weaning. Await input from Surgery. I have started low-dose Lasix and steroids. Broad-spectrum antibiotics. One-half hour of critical time. Job ID: [id number]
[2018-08-18] MEDS: Timolol 0.5% Ophth Soln 5 ml Bottle EA EYE SCH ×2 (09:20→21:21)
[2018-08-18] MEDS: Albumin 25% 25 GM/100 ML BOT IVPB SCH (10:13)
[2018-08-18] MEDS: Furosemide 20 MG/2 ML VIAL SLOW IVP SCH (10:14)
[2018-08-18] MEDS: methylPREDNISolone Sod Succ 40 MG VIAL IVP SCH (10:14)
--- NOTE | 2018-08-18 10:53 | PDOC.PN ---
- Subjective Encounter Start Date: 08/18/18 Encounter Start Time: 08:45 Patient seen and examined. she is tachycardic, No overnight events - Objective Resuscitation Status - Order Detail: 08/05/18 13:01 Resuscitation Status Routine Resuscitation Status: FULL: Full Resuscitation MAR Reviewed: Yes Vital Signs & Weight: Vital Signs (12 hours) Temp Pulse Resp BP 08/18/18 09:20 122 H 122/56 L 08/18/18 09:12 121 H 08/18/18 08:00 99.2 F 08/18/18 07:49 126 H 172/91 H 08/18/18 06:00 22 H 08/18/18 04:00 98.8 F 24 H 08/18/18 02:10 99 130/50 L 08/18/18 02:00 23 H 08/18/18 00:00 21 H 08/17/18 23:00 98.7 F Weight Admit Weight 164 lb 0.383 oz Weight 164 lb 10.965 oz Most Recent Monitor Data Heart Rate from ECG 121 NIBP 122/56 NIBP BP-Mean 78 Respiration from ECG 26 SpO2 98 I&O: 08/17/18 08/18/18 08/19/18 06:59 06:59 06:59 Intake Total 2138 1658 30 Output Total 2195 2650 75 Balance -57 -992 -45 Result Diagrams: 08/18/18 05:01 08/18/18 05:01 Radiology Reviewed by me: Yes (chest xray reviewed) EKG Reviewed by me: Yes (sinus tachycardia) Phys Exam - Physical Examination Constitutional: NAD on vent HEENT: PERRLA, sclera anicteric Neck: no JVD, supple coarse sound+ Cardiovascular: RRR, no significant murmur tachycardia Gastrointestinal: soft wound vac+, colostomy+, SRAVAN drain+ Musculoskeletal: pulses present, edema present Lymphatic: no nodes Skin: normal turgor Dx/Plan (1) Diverticulitis of colon with perforation Code(s): K57.20 - DVTRCLI OF LG INT W PERFORATION AND ABSCESS W/O BLEEDING Status: Acute (2) Necrotizing fasciitis Code(s): M72.6 - NECROTIZING FASCIITIS Status: Acute Comment: left flank, s/ p I & D, (3) S/P laparotomy Status: Acute Comment: for perforated colon now with colostomy, wound closed with wound vac (4) S/P colostomy Code(s): Z93.3 - COLOSTOMY STATUS Status: Acute (5) Acute respiratory failure Code(s): J96.00 - ACUTE RESPIRATORY FAILURE, UNSP W HYPOXIA OR HYPERCAPNIA Status: Acute Qualifiers: Respiratory failure complication: hypoxia Qualified Code(s): J96.01 - Acute respiratory failure with hypoxia (6) S/P chest tube placement Code(s): Z93.8 - OTHER ARTIFICIAL OPENING STATUS Status: Acute Comment: for air in mediastinum and chest (7) Community acquired bacterial pneumonia Code(s): J15.9 - UNSPECIFIED BACTERIAL PNEUMONIA Status: Acute (8) Demand ischemia of myocardium Code(s): I24.8 - OTHER FORMS OF ACUTE ISCHEMIC HEART DISEASE Status: Acute (9) Encephalopathy in sepsis Code(s): G93.41 - METABOLIC ENCEPHALOPATHY Status: Acute Comment: as well as due to metabolic factors (10) High anion gap metabolic acidosis Code(s): E87.2 - ACIDOSIS Status: Acute (11) Lactic acidosis Code(s): E87.2 - ACIDOSIS Status: Acute (12) Sepsis associated hypotension Code(s): A41.9 - SEPSIS, UNSPECIFIED ORGANISM; I95.9 - HYPOTENSION, UNSPECIFIED Status: Acute (13) Sepsis with acute organ dysfunction Code(s): A41.9 - SEPSIS, UNSPECIFIED ORGANISM; R65.20 - SEVERE SEPSIS WITHOUT SEPTIC SHOCK Status: Acute (14) UTI (urinary tract infection) Status: Acute (15) Anemia of chronic disease Code(s): D63.8 - ANEMIA IN OTHER CHRONIC DISEASES CLASSIFIED ELSEWHERE Status : Chronic Comment: with microcytosis (16) Anxiety and depression Code(s): F41.9 - ANXIETY DISORDER, UNSPECIFIED; F32.9 - MAJOR DEPRESSIVE DISORDER, SINGLE EPISODE, UNSPECIFIED Status: Chronic (17) Dyslipidemia Code(s): E78.5 - HYPERLIPIDEMIA, UNSPECIFIED Status: Chronic (18) Abnormal blood electrolyte level Code(s): E87.8 - OTH DISORDERS OF ELECTROLYTE AND FLUID BALANCE, NEC Status: Acute - Plan cont current plan of care, continue antibiotics * agree with lasix * if persistent tachycardia, then intraabdominal collection needs to be excluded , will defer to surgeon * not weanable today as per pulmonary * currently on meropenam and micafungin * medication reviewed as below * symptomatic treatment. Review of Systems - Review of Systems Other: unable to review due to intubated status - Medications/Allergies Allergies/Adverse Reactions: Allergies Allergy/AdvReac Type Severity Reaction Status Date / Time Sulfa (Sulfonamide Allergy Verified 08/05/18 15:43 Antibiotics) Medications: Current Medications Albumin Human (Albumin 25%) 25 gm IVPB Q24HR [facility] Stop: 08/19/18 09:01 Last Admin: 08/18/18 10:13 Dose: 25 gm Albuterol/Ipratropium (Duoneb) 3 ml NEB [id number] PRN PRN Reason: SOB &/or Wheezing Albuterol/Ipratropium (Duoneb) 3 ml NEB [id number] [facility] Last Admin: 08/18/18 07:49 Dose: 3 ml Artificial Tears (Tears Renewed 15ml Bottle) 2 drop EA EYE PRN PRN PRN Reason: Dry Eyes Enoxaparin Sodium (Lovenox) 40 mg SC 0900 [facility] Last Admin: 08/18/18 08:33 Dose: 40 mg Furosemide (Lasix) 20 mg SLOW IVP DAILY [facility] Stop: 08/21/18 09:01 Last Admin: 08/18/18 10:14 Dose: 20 mg Hydralazine HCl (Apresoline) 10 mg SLOW IVP Q4H PRN PRN Reason: SBP > 180 and HR < 70 Meropenem 2 gm/ Miscellaneous Medication 1 each/ Sodium Chloride 100 mls @ 0 mls/hr IVPB 0800,1600,2359 [facility] Last Admin: 08/18/18 08:32 Dose: 100 mls Micafungin Sodium 100 mg/ (Sodium Chloride) 100 mls @ 100 mls/hr IVPB Q24HR [facility] Last Admin: 08/17/18 18:50 Dose: 100 mls Potassium Chloride 40 meq/ (Sodium Chloride) 270 mls @ 135 mls/hr IVPB ASDIR PRN PRN Reason: FOR SERUM K+ 2.5 - 3.5 Potassium Chloride 40 meq/ (Device) 100 mls @ 50 mls/hr IVPB ASDIR PRN PRN Reason: FOR SERUM K+ 2.5 - 3.5 Last Admin: 08/18/18 06:44 Dose: 100 mls Magnesium Sulfate 1 gm/ Sodium (Chloride) 102 mls @ 102 mls/hr IV PRN PRN PRN Reason: MAG LEVEL 1.4 - 2.0 Last Admin: 08/14/18 04:26 Dose: 102 mls Magnesium Sulfate 2 gm/ Device 100 mls @ 100 mls/hr IVPB ASDIR PRN PRN Reason: MAGNESIUM < 1.4 Potassium Phosphate 9 mmol/ (Sodium Chloride) 103 mls @ 25.75 mls/hr IVPB ASDIR PRN PRN Reason: Phosphate 1.0-1.8 Potassium Phosphate 12 mmol/ (Sodium Chloride) 254 mls @ 63.5 mls/hr IV ASDIR PRN PRN Reason: Serum phosphate 0.5-0.9 Potassium Phosphate 15 mmol/ (Sodium Chloride) 255 mls @ 63.75 mls/hr IV ASDIR PRN PRN Reason: Serum Phos < 0.5 Latanoprost (Xalatan 0.005% Ophth Soln) 1 drop EA EYE HS [facility] Last Admin: 08/17/18 20:41 Dose: 1 drp Magnesium Oxide (Magnesium Oxide) 400 mg PO BIDPRN PRN PRN Reason: FOR SERUM MAG 1.4 - 2.0 Magnesium Oxide (Magnesium Oxide) 800 mg PO PRN PRN PRN Reason: FOR SERUM MAG < 1.4 Methylprednisolone Sodium Succinate (Solu-Medrol) 40 mg IVP DAILY [facility] Stop: 08/23/18 09:01 Last Admin: 08/18/18 10:14 Dose: 40 mg Miscellaneous Medication (Ventilator Sedation Protocol) 1 each FS ASDIR [facility] Miscellaneous Medication (Phos-Nak) 1 pkt PO TIDPRN PRN PRN Reason: FOR PHOS LEVEL 1.0 - 1.8 Miscellaneous Medication (Phos-Nak) 2 pkt PO TIDPRN PRN PRN Reason: FOR PHOS LEVEL 0.5 - 1.0 Morphine Sulfate (Morphine) 2 mg SLOW IVP Q4H PRN PRN Reason: PAIN/DYSPNEA Last Admin: 08/18/18 08:33 Dose: 2 mg Discontinue Previous Narcotic Pain Medications And Benzodiazepines 1 each FS .ONE [facility] Stop: 09/05/18 22:27 Ccu Electrolyte (Replacement Protocol) 0 each FS PRN PRN PRN Reason: FOR ELECTROLYTE REPLACEMENT Ondansetron HCl (Zofran) 4 mg IVP Q6H PRN PRN Reason: Nausea/Vomiting Pantoprazole Sodium (Protonix) 40 mg IVP DAILY [facility] Last Admin: 08/18/18 08:33 Dose: 40 mg Potassium Chloride (K-Dur) 40 meq PO ASDIR PRN PRN Reason: FOR SERUM K+ 2.5 - 3.5 Potassium Chloride (Klor-Con) 40 meq PER TUBE ASDIR PRN PRN Reason: FOR SERUM K+ 2.5-3.5 Propofol (Diprivan) 1,000 mg IV INF PRN; Protocol PRN Reason: TO ACHIEVE GOAL RASS Stop: 09/05/18 22:27 Propofol (Diprivan Bolus) 20 mg IV Q5MIN PRN PRN Reason: BREAKTHROUGH AGITATION Stop: 09/05/18 22:27 Sodium Chloride (Flush - Normal Saline) 10 ml IVF Q12HR [facility] Last Admin: 08/18/18 08:33 Dose: 10 ml Sodium Chloride (Flush - Normal Saline) 10 ml IVF PRN PRN PRN Reason: Saline Flush Last Admin: 08/14/18 07:30 Dose: 10 ml Sodium Chloride ([place] Nasal [place] 0.65%) 0 ml EA NARE QIDPRN PRN PRN Reason: Nasal Congestion Sodium Chloride (Flush - Normal Saline) 10 ml IV DAILY [facility] Last Admin: 08/18/18 08:33 Dose: 10 ml Timolol Maleate (Timoptic 0.5% Oph Soln) 1 drop EA EYE BID [facility] Last Admin: 08/18/18 09:20 Dose: 1 drp
[2018-08-18] MEDS ORDERED: Potassium Chloride 40 MEQ in Premix Bag 1 BAG IVPB SCH (14:45)
[2018-08-18] MEDS ORDERED: Digoxin 0.5 MG/2 ML AMP SLOW IVP SCH ×2 (16:15→18:00)
[2018-08-18] MEDS: Micafungin 100 MG in Sodium Chloride 0.9% 100 ML IVPB SCH (16:55)
[2018-08-18] MEDS: Latanoprost 0.005% Ophth Soln 2.5 ml Bottle EA EYE SCH (21:21)
[2018-08-19] MEDS: Meropenem 2 GM, Admixture Fee 1 EACH in Sodium Chloride 0.9% 100 ML IVPB SCH ×3 (00:07→15:59)
[2018-08-19 05:26] LABS: Magnesium 2.2 mg/dL (1.6-2.6)
[2018-08-19 05:34] LABS: Phosphorus 1.7 mg/dL (2.3-4.7)
[2018-08-19 07:30] LABS: Actual Bicarbonate (HCO3a) 30.6 mEq/L (22-28); Base Excess (BEa) 6.6 mEq/L (-2.0 to +3.0); CO2 Tension 41.3 mmHg (35.0-45.0); Calcium, Ionized 1.12 mmol/L (1.12-1.30); Carboxyhemoglobin (COHb) 1.5 gm% (0.0-3.0); Hemoglobin (Hb) 8.4 g/dL (12.0-16.0); O2 Tension (PaO2) 96.9 mmHg (> 60.0); Potassium - ABG Lab 4.06 mmol/L (3.70-5.30); pH, Arterial 7.49 (7.35-7.45)
[2018-08-19 07:33] LABS: ALV-art Gradient 136.675 (0-20); Puncture Site RRA
--- NOTE | 2018-08-19 08:40 | RAD ---
CHEST 1 VIEW: HISTORY: Respiratory insufficiency. COMPARISON: 08/18/2018. FINDINGS: Life support tubes in place and stable. Confluent alveolar and interstitial parenchymal changes in t he right chest and left lower lobe with bilateral pleural effusions showing some improvement from evan or study. No pneumothorax. IMPRESSION: Extensive bilateral parenchymal and pleural changes more so in the right lung showing minimal improve ment. Continued short-term followup. POS: JHONY
[2018-08-19] MEDS ORDERED: DC Sedation Protocol FS ONE (08:54)
[2018-08-19] MEDS ORDERED: Digoxin 0.125 MG TAB PO SCH (09:00)
[2018-08-19] MEDS: Furosemide 20 MG/2 ML VIAL SLOW IVP SCH (09:27)
[2018-08-19] MEDS: Albumin 25% 25 GM/100 ML BOT IVPB SCH (09:27)
[2018-08-19] MEDS: methylPREDNISolone Sod Succ 40 MG VIAL IVP SCH (09:28)
[2018-08-19] MEDS: Pantoprazole 40 MG VIAL IVP SCH (09:28)
[2018-08-19] MEDS: Enoxaparin Sodium 40 MG/0.4 ML SYRINGE SC SCH (09:29)
[2018-08-19] MEDS: Timolol 0.5% Ophth Soln 5 ml Bottle EA EYE SCH ×2 (09:30→21:10)
--- NOTE | 2018-08-19 09:33 | PRG ---
DATE OF SERVICE: 08/19/2018 SUBJECTIVE: Dee Moffett this morning is awake, alert, responsive, no sedation. Vital signs; blood pressure is 97/47, sats 100%, pulse 97, and respiratory rate 20. Chest, bilateral rhonchi and crackles. Cardiac, normal S1, S2. No gallops or masses. BNP is elevated at 440. Phosphorus is low 1.7, has been replaced. Magnesium 2.2. PO2 is 96, pCO2 of 35 ph 7.35 . Chest x-ray shows bilateral infiltrates, somewhat better. OBJECTIVE: GENERAL: Otherwise, she is awake, responsive, moves all 4 extremities. EXTREMITIES: Less edema. CHEST: Bilateral rhonchi. CARDIAC: Normal sinus rhythm. ABDOMEN: Soft NEUROLOGICALLY: Oriented. She was given some digoxin yesterday for frequent PACs. IMPRESSION: 1. Respiratory failure, probably aspiration. 2. Congestive heart failure, probably diastolic dysfunction. 3. Abdominal sepsis, severe deconditioning, major nutritional deficit. Broad-spectrum antibiotics, meropenem and micafungin, all cultures are negative, though infection from the abdomen grew multiple organisms that are sensitive to all the antibiotics that she is on at this stage. Most of it is Escherichia coli. PLAN: Wean and extubate. Nutrition, PT, supportive care. One-half hour of critical time. Job ID: [id number] [id number]
[2018-08-19] MEDS ORDERED: traMADol HCl 50 MG TAB PO PRN ×2 (10:26)
[2018-08-19] MEDS ORDERED: Acetaminophen 1,000 MG in Premix Bag 1 BAG IVPB PRN (10:26)
[2018-08-19] MEDS ORDERED: Ibuprofen 600 MG TAB PO PRN (10:26)
[2018-08-19] MEDS ORDERED: Acetaminophen 500 MG TAB PO PRN (10:26)
[2018-08-19] MEDS: Digoxin 0.125 MG TAB PO SCH (10:40)
--- NOTE | 2018-08-19 11:17 | PRG ---
DATE OF SERVICE: 08/19/2018 SUBJECTIVE: Ms. Monroy is doing well today. She has been extubated this morning. She is awake and alert. OBJECTIVE: VITAL SIGNS: Heart rate 99, blood pressure 122/61. Urine output 2275 over the last 24 hours. Colostomy output 450 over the last 24 hours. SRAVAN drain is clear fluid 45 mL over the last 12 hours. LUNGS: Clear to auscultation. CARDIAC: Regular rate and rhythm without murmur or gallop. ABDOMEN: Soft and nontender. Wound VAC, midline wound. Colostomy healthy. Wound VAC to be changed. Left flank midline wound tomorrow will be with wound care. LABORATORY DATA: Sodium 147, potassium 3.3, chloride 110, BUN 23, creatinine 0.4. Phosphorus is low, has been replaced today, 1.7. Magnesium is normal at 2.2. ASSESSMENT AND PLAN: 1. Diverticulitis, status post colon resection and colostomy. Healthy colostomy site. Good stool output. 2. Necrotizing fasciitis, left flank, and iliac crest area wounds are reported, acknowledged by Dr. Velazco. We will view wounds tomorrow during dressing change. 3. Nutrition. She has been tolerating tube feeds at the goal rate with good GI function. Now that she has been extubated, NG tube removed. We will start her on a regular diet. 4. Deconditioning. Physical Therapy will work toward ambulating. She will need to be up in a chair 2 to 3 times a day. 5. Anticipate transfer to rehab next week. 6. Continue intravenous antibiotics for now. Hopefully, her white count is normal. Depending on what her wounds look tomorrow, IV antibiotics could be discontinued next week. We will view wounds tomorrow. 7. White count 7, hemoglobin 9.0, stable hemoglobin. Basic metabolic profile is normal. Renal function is normal. Job ID: [id number]
--- NOTE | 2018-08-19 11:22 | PDOC.PN ---
- Subjective Encounter Start Date: 08/19/18 Encounter Start Time: 09:00 Patient seen and examined. No overnight events - Objective Resuscitation Status - Order Detail: 08/05/18 13:01 Resuscitation Status Routine Resuscitation Status: FULL: Full Resuscitation MAR Reviewed: Yes Vital Signs & Weight: Vital Signs (12 hours) Temp Pulse Resp BP Pulse Ox 08/19/18 10:22 95 21 H 100 08/19/18 09:30 99 122/61 08/19/18 09:05 98 26 H 96 08/19/18 08:00 98.3 F 08/19/18 07:43 90 08/19/18 06:00 19 08/19/18 04:00 98.3 F 17 08/19/18 02:14 89 106/41 L 08/19/18 02:00 16 08/19/18 00:00 97.9 F 18 Weight Admit Weight 164 lb 0.383 oz Weight 164 lb 2.4 oz Most Recent Monitor Data Heart Rate from ECG 95 NIBP 115/56 NIBP BP-Mean 75 Respiration from ECG 22 SpO2 100 I&O: 08/18/18 08/19/18 08/20/18 06:59 06:59 06:59 Intake Total 1658 1586 202 Output Total 2650 2945 612 Balance -992 -1359 -410 Result Diagrams: 08/18/18 05:01 08/18/18 05:01 Radiology Reviewed by me: Yes (chest xray reviewed) EKG Reviewed by me: Yes (nsr) Phys Exam - Physical Examination Constitutional: NAD HEENT: PERRLA, sclera anicteric on vent Neck: no JVD, supple Respiratory: no wheezing, no rales, no rhonchi Cardiovascular: RRR, no significant murmur Gastrointestinal: soft colostomy+ wound vac+ Musculoskeletal: pulses present, edema present Lymphatic: no nodes Skin: no rash, normal turgor Dx/Plan (1) Diverticulitis of colon with perforation Code(s): K57.20 - DVTRCLI OF LG INT W PERFORATION AND ABSCESS W/O BLEEDING Status: Acute (2) Necrotizing fasciitis Code(s): M72.6 - NECROTIZING FASCIITIS Status: Acute Comment: left flank, s/ p I & D, (3) S/P laparotomy Status: Acute Comment: for perforated colon now with colostomy, wound closed with wound vac (4) S/P colostomy Code(s): Z93.3 - COLOSTOMY STATUS Status: Acute (5) Acute respiratory failure Code(s): J96.00 - ACUTE RESPIRATORY FAILURE, UNSP W HYPOXIA OR HYPERCAPNIA Status: Acute Qualifiers: Respiratory failure complication: hypoxia Qualified Code(s): J96.01 - Acute respiratory failure with hypoxia (6) S/P chest tube placement Code(s): Z93.8 - OTHER ARTIFICIAL OPENING STATUS Status: Acute Comment: for air in mediastinum and chest (7) Community acquired bacterial pneumonia Code(s): J15.9 - UNSPECIFIED BACTERIAL PNEUMONIA Status: Acute (8) Demand ischemia of myocardium Code(s): I24.8 - OTHER FORMS OF ACUTE ISCHEMIC HEART DISEASE Status: Acute (9) Encephalopathy in sepsis Code(s): G93.41 - METABOLIC ENCEPHALOPATHY Status: Acute Comment: as well as due to metabolic factors (10) High anion gap metabolic acidosis Code(s): E87.2 - ACIDOSIS Status: Acute (11) Lactic acidosis Code(s): E87.2 - ACIDOSIS Status: Acute (12) Sepsis associated hypotension Code(s): A41.9 - SEPSIS, UNSPECIFIED ORGANISM; I95.9 - HYPOTENSION, UNSPECIFIED Status: Acute (13) Sepsis with acute organ dysfunction Code(s): A41.9 - SEPSIS, UNSPECIFIED ORGANISM; R65.20 - SEVERE SEPSIS WITHOUT SEPTIC SHOCK Status: Acute (14) UTI (urinary tract infection) Status: Acute (15) Anemia of chronic disease Code(s): D63.8 - ANEMIA IN OTHER CHRONIC DISEASES CLASSIFIED ELSEWHERE Status : Chronic Comment: with microcytosis (16) Anxiety and depression Code(s): F41.9 - ANXIETY DISORDER, UNSPECIFIED; F32.9 - MAJOR DEPRESSIVE DISORDER, SINGLE EPISODE, UNSPECIFIED Status: Chronic (17) Dyslipidemia Code(s): E78.5 - HYPERLIPIDEMIA, UNSPECIFIED Status: Chronic (18) Abnormal blood electrolyte level Code(s): E87.8 - OTH DISORDERS OF ELECTROLYTE AND FLUID BALANCE, NEC Status: Acute - Plan cont current plan of care, continue antibiotics * possible extubation today * continue wound care * continue PT * will need rehab on discharge * continue meropenam and micafungin * medication reviewed as below * symptomatic treatment. Review of Systems - Review of Systems Other: unable to review due to intubated status - Medications/Allergies Allergies/Adverse Reactions: Allergies Allergy/AdvReac Type Severity Reaction Status Date / Time Sulfa (Sulfonamide Allergy Verified 08/05/18 15:43 Antibiotics) Medications: Current Medications Acetaminophen (Tylenol) 1,000 mg PO Q6H PRN PRN Reason: Moderate to Severe Pain (6-10) Albuterol/Ipratropium (Duoneb) 3 ml NEB [id number] [facility] Last Admin: 08/19/18 10:22 Dose: 3 ml Artificial Tears (Tears Renewed 15ml Bottle) 2 drop EA EYE PRN PRN PRN Reason: Dry Eyes Clopidogrel Bisulfate (Plavix) 75 mg PO DAILY [facility] Digoxin (Lanoxin) 0.125 mg PO DAILY [facility] Enoxaparin Sodium (Lovenox) 40 mg SC 0900 [facility] Last Admin: 08/19/18 09:29 Dose: 40 mg Famotidine (Pepcid) 20 mg PO BID [facility] Furosemide (Lasix) 20 mg SLOW IVP DAILY [facility] Stop: 08/21/18 09:01 Last Admin: 08/19/18 09:27 Dose: 20 mg Hydralazine HCl (Apresoline) 10 mg SLOW IVP Q4H PRN PRN Reason: SBP > 180 and HR < 70 Meropenem 2 gm/ Miscellaneous Medication 1 each/ Sodium Chloride 100 mls @ 0 mls/hr IVPB 0800,1600,2359 [facility] Last Admin: 08/19/18 08:25 Dose: 100 mls Micafungin Sodium 100 mg/ (Sodium Chloride) 100 mls @ 100 mls/hr IVPB Q24HR [facility] Last Admin: 08/18/18 16:55 Dose: 100 mls Potassium Chloride 40 meq/ (Sodium Chloride) 270 mls @ 135 mls/hr IVPB ASDIR PRN PRN Reason: FOR SERUM K+ 2.5 - 3.5 Potassium Chloride 40 meq/ (Device) 100 mls @ 50 mls/hr IVPB ASDIR PRN PRN Reason: FOR SERUM K+ 2.5 - 3.5 Last Admin: 08/18/18 06:44 Dose: 100 mls Magnesium Sulfate 1 gm/ Sodium (Chloride) 102 mls @ 102 mls/hr IV PRN PRN PRN Reason: MAG LEVEL 1.4 - 2.0 Last Admin: 08/14/18 04:26 Dose: 102 mls Magnesium Sulfate 2 gm/ Device 100 mls @ 100 mls/hr IVPB ASDIR PRN PRN Reason: MAGNESIUM < 1.4 Potassium Phosphate 9 mmol/ (Sodium Chloride) 103 mls @ 25.75 mls/hr IVPB ASDIR PRN PRN Reason: Phosphate 1.0-1.8 Potassium Phosphate 12 mmol/ (Sodium Chloride) 254 mls @ 63.5 mls/hr IV ASDIR PRN PRN Reason: Serum phosphate 0.5-0.9 Potassium Phosphate 15 mmol/ (Sodium Chloride) 255 mls @ 63.75 mls/hr IV ASDIR PRN PRN Reason: Serum Phos < 0.5 Acetaminophen 1,000 mg/ Device 100 mls @ 400 mls/hr IVPB ONE PRN PRN Reason: Fever>101/(Mi/Mod/Sev) Pain Stop: 08/19/18 21:00 Ibuprofen (Motrin) 600 mg PO Q6H PRN PRN Reason: Pain Latanoprost (Xalatan 0.005% Ophth Soln) 1 drop EA EYE HS [facility] Last Admin: 08/18/18 21:21 Dose: 1 drp Lovastatin (Mevacor) 20 mg PO HS [facility] Magnesium Oxide (Magnesium Oxide) 400 mg PO BIDPRN PRN PRN Reason: FOR SERUM MAG 1.4 - 2.0 Magnesium Oxide (Magnesium Oxide) 800 mg PO PRN PRN PRN Reason: FOR SERUM MAG < 1.4 Methylprednisolone Sodium Succinate (Solu-Medrol) 40 mg IVP DAILY [facility] Stop: 08/23/18 09:01 Last Admin: 08/19/18 09:28 Dose: 40 mg Miscellaneous Medication (Phos-Nak) 1 pkt PO TIDPRN PRN PRN Reason: FOR PHOS LEVEL 1.0 - 1.8 Last Admin: 08/19/18 05:49 Dose: 1 pkt Miscellaneous Medication (Phos-Nak) 2 pkt PO TIDPRN PRN PRN Reason: FOR PHOS LEVEL 0.5 - 1.0 Discontinue Previous Narcotic Pain Medications And Benzodiazepines 1 each FS .ONE [facility] Stop: 09/05/18 22:27 Ccu Electrolyte (Replacement Protocol) 0 each FS PRN PRN PRN Reason: FOR ELECTROLYTE REPLACEMENT Ondansetron HCl (Zofran) 4 mg IVP Q6H PRN PRN Reason: Nausea/Vomiting Potassium Chloride (K-Dur) 40 meq PO ASDIR PRN PRN Reason: FOR SERUM K+ 2.5 - 3.5 Potassium Chloride (Klor-Con) 40 meq PER TUBE ASDIR PRN PRN Reason: FOR SERUM K+ 2.5-3.5 Sertraline HCl (Zoloft) 50 mg PO DAILY [facility] Sodium Chloride (Flush - Normal Saline) 10 ml IVF Q12HR [facility] Last Admin: 08/19/18 09:29 Dose: 10 ml Sodium Chloride (Flush - Normal Saline) 10 ml IVF PRN PRN PRN Reason: Saline Flush Last Admin: 08/14/18 07:30 Dose: 10 ml Sodium Chloride ([place] Nasal [place] 0.65%) 0 ml EA NARE QIDPRN PRN PRN Reason: Nasal Congestion Timolol Maleate (Timoptic 0.5% Ophth Soln) 1 drop EA EYE BID [facility] Last Admin: 08/19/18 09:30 Dose: 1 drp Timolol Maleate (Timoptic 0.5% Ophth Soln) 1 drop EA EYE BID [facility] Tramadol HCl (Ultram) 50 mg PO Q6H PRN PRN Reason: Moderate Pain (4-6) Tramadol HCl (Ultram) 100 mg PO Q6H PRN PRN Reason: Severe Pain (7-10)
[2018-08-19] MEDS: Micafungin 100 MG in Sodium Chloride 0.9% 100 ML IVPB SCH (17:11)
[2018-08-19] MEDS ORDERED: Timolol 0.5% Ophth Soln 5 ml Bottle EA EYE SCH (21:00)
[2018-08-19] MEDS: Lovastatin 20 MG TAB PO SCH (21:09)
[2018-08-19] MEDS: Famotidine 20 MG TAB PO SCH (21:09)
[2018-08-19] MEDS: Latanoprost 0.005% Ophth Soln 2.5 ml Bottle EA EYE SCH (21:10)
[2018-08-20] MEDS: Meropenem 2 GM, Admixture Fee 1 EACH in Sodium Chloride 0.9% 100 ML IVPB SCH ×3 (00:29→17:21)
[2018-08-20 04:15] LABS: #Eosinphils 0.1 thou/uL (0.0-0.7); #Lymphocytes 1.6 thou/uL (1.20-3.40); #Monocytes 0.4 thou/uL (0.11-0.59); #Neutrophils 6.1 thou/uL (1.40-6.50); %Basophils 0.2 % (0.0-1.0); %Eosinophils 0.7 % (0.0-10.0); %Lymphocytes 19.9 % (21.0-51.0); %Monocytes 4.5 % (0.0-10.0); %Neutrophils 74.8 % (42.0-75.0); Hemoglobin 9.8 g/dL (12.0-16.0); Mean Corpuscular HGB CONC 30.1 g/dL (32.0-36.0); Mean Corpuscular Hemoglobin 25.6 pg (27.0-31.0); Mean Corpuscular Volume 84.9 fL (78.0-98.0); Platelet Count 297 thou/uL (130-400); RBC Distribution Width 20.9 % (11.5-14.5); Red Blood Cell (RBC) Count 3.81 mill/uL (4.20-5.40); White Blood Cell (WBC) Count 8.2 thou/uL (4.8-10.8)
[2018-08-20 04:35] LABS: ALT (SGPT) 22 U/L (8-55); AST (SGOT) 37 U/L (5-34); Albumin 2.5 g/dL (3.4-4.8); Alkaline Phosphatase 116 U/L (40-150); Anion Gap 7 mmol/L (10-20); BUN (Urea Nitrogen) 22 mg/dL (9.8-20.1); Bilirubin, Total 0.5 mg/dL (0.2-1.2); Calc. Creatinine Clearance 121 mL/min (70-130); Calcium 8.1 mg/dL (7.8-10.44); Carbon Dioxide 34 mmol/L (23-31); Chloride 109 mmol/L (98-107); Estimated GFR-MDRD Greater than 90; Globulin 2.6 g/dL (2.4-3.5); Glucose 80 mg/dL (83-110); Potassium 3.6 mmol/L (3.5-5.1); Protein, Total 5.1 g/dL (6.0-8.3); Sodium 146 mmol/L (136-145)
[2018-08-20 04:44] LABS: Phosphorus 1.8 mg/dL (2.3-4.7)
--- NOTE | 2018-08-20 08:43 | RAD ---
CHEST ONE VIEW: HISTORY: Dyspnea. Followup. COMPARISON: 08/19/2018 FINDINGS: The cardiac silhouette is magnified and now more obscured by increasing patchy bibasilar infiltrates. Left pleural fluid is suspected. The pulmonary vasculature remains engorged. The mediastinum is m idline. The endotracheal catheter and the nasogastric tube are no longer visualized. A right subcla vian central venous catheter remains in place. IMPRESSION: 1. Slight radiographic worsening in the appearance of pulmonary edema and bibasilar infiltrates. 2. Interval removal of endotracheal catheter and nasogastric tube. POS: [facility]
--- NOTE | 2018-08-20 09:00 | PRG ---
DATE OF SERVICE: 08/20/2018 SUBJECTIVE: Dee Monroy, this morning, is awake, alert, responsive, in no distress. OBJECTIVE: VITAL SIGNS: Sats are 99% on 3 L, pulse __80 , respiratory rate20 bp 125\72 18, and blood pressure 178/80. CHEST: Decreased breath sounds. No wheezing. CARDIAC: Normal S1 and S2. No gallops. ABDOMEN: No masses. LABORATORY DATA: Albumin is 2.5. White count is normal. Lytes are normal. IMPRESSION: Respiratory failure, sepsis syndrome, status post lap, severe deconditioning ,severe nutritional deficit. PLAN: She is going to be transferred out of the ICU to a surgical floor. We will continue supportive care, PT. Job ID: [id number] [email or web address]
--- NOTE | 2018-08-20 09:07 | PRG ---
DATE OF SERVICE: 08/20/2018 SUBJECTIVE: Dee Monroy is doing well today. She is awake and interactive. OBJECTIVE: VITAL SIGNS: 91 heart rate, 28 respiratory rate, 170/85 blood pressure. She is not taking much in orally, but does swallow effectively. SRAVAN drain has been removed. Urine output 2277 in 24 hours. LUNGS: Clear to auscultation. CARDIAC: Regular rate and rhythm without murmur or gallop. ABDOMEN: Soft. Good bowel sounds. Colostomy is healthy. LABORATORY DATA: White count 8, hemoglobin 9.8. Sodium 146, potassium 3.6, carbon dioxide 34, BUN 22, and creatinine 0.4. ASSESSMENT AND PLAN: Diverticulitis, status post sigmoid resection and colostomy with drainage, necrotizing fasciitis, left flank and washout, retroperitoneum. Drain has been removed. Her white count is normal. Would continue intravenous antibiotics for now. We will review her wound and wound care VAC changes today. Overall, she is doing well, although severely deconditioned. She will need rehab therapy, could possibly transfer next week. Today, we will transfer to the floor for physical therapy and monitoring and encourage oral intake. I have asked her nurse to remove her central line and place a midline catheter to avoid bacteremia issues. Job ID: [id number]
[2018-08-20] MEDS ORDERED: Furosemide 40 MG/4 ML VIAL ONE (09:26)
[2018-08-20] MEDS: Digoxin 0.125 MG TAB PO SCH (09:37)
[2018-08-20] MEDS: Enoxaparin Sodium 40 MG/0.4 ML SYRINGE SC SCH (09:37)
[2018-08-20] MEDS: Famotidine 20 MG TAB PO SCH ×2 (09:37→21:20)
[2018-08-20] MEDS: Clopidogrel Bisulfate 75 MG TAB PO SCH (09:37)
[2018-08-20] MEDS: Furosemide 40 MG/4 ML VIAL SLOW IVP SCH (09:38)
[2018-08-20] MEDS: methylPREDNISolone Sod Succ 40 MG VIAL IVP SCH (09:38)
[2018-08-20] MEDS: Timolol 0.5% Ophth Soln 5 ml Bottle EA EYE SCH ×2 (09:39→21:20)
--- NOTE | 2018-08-20 11:20 | PDOC.PN ---
- Subjective Encounter Start Date: 08/20/18 Encounter Start Time: 09:40 Patient seen and examined. No overnight events pt is extubated - Objective Resuscitation Status - Order Detail: 08/05/18 13:01 Resuscitation Status Routine Resuscitation Status: FULL: Full Resuscitation MAR Reviewed: Yes Vital Signs & Weight: Vital Signs (12 hours) Temp Pulse Resp Pulse Ox 08/20/18 11:00 106 H 18 100 08/20/18 09:39 96 08/20/18 09:37 96 08/20/18 08:00 97.1 F L 99 08/20/18 07:55 99 08/20/18 07:54 91 28 H 99 08/20/18 04:00 97.6 F 08/20/18 02:24 91 27 H 93 L 08/20/18 00:00 97.8 F Weight Admit Weight 164 lb 0.383 oz Weight 164 lb 2.4 oz Most Recent Monitor Data Heart Rate from ECG 105 NIBP 151/83 NIBP BP-Mean 105 Respiration from ECG 31 SpO2 100 I&O: 08/19/18 08/20/18 08/21/18 06:59 06:59 06:59 Intake Total 1586 1775 250 Output Total 2945 2467 170 Balance -1359 -692 80 Result Diagrams: 08/20/18 04:00 08/20/18 04:00 Radiology Reviewed by me: Yes (chest xray reviewed) EKG Reviewed by me: Yes Phys Exam - Physical Examination Constitutional: NAD HEENT: PERRLA, sclera anicteric Neck: no JVD, supple Respiratory: no wheezing, no rhonchi right side rales Cardiovascular: RRR, no significant murmur, no rub Gastrointestinal: soft wound vac+ lateral wall wound vac+ Musculoskeletal: edema present Neurological: non-focal, normal sensation Lymphatic: no nodes Psychiatric: normal affect Skin: no rash, normal turgor Dx/Plan (1) Diverticulitis of colon with perforation Code(s): K57.20 - DVTRCLI OF LG INT W PERFORATION AND ABSCESS W/O BLEEDING Status: Acute (2) Necrotizing fasciitis Code(s): M72.6 - NECROTIZING FASCIITIS Status: Acute Comment: left flank, s/ p I & D, (3) S/P laparotomy Status: Acute Comment: for perforated colon now with colostomy, wound closed with wound vac (4) S/P colostomy Code(s): Z93.3 - COLOSTOMY STATUS Status: Acute (5) Acute respiratory failure Code(s): J96.00 - ACUTE RESPIRATORY FAILURE, UNSP W HYPOXIA OR HYPERCAPNIA Status: Acute Qualifiers: Respiratory failure complication: hypoxia Qualified Code(s): J96.01 - Acute respiratory failure with hypoxia (6) S/P chest tube placement Code(s): Z93.8 - OTHER ARTIFICIAL OPENING STATUS Status: Acute Comment: for air in mediastinum and chest (7) Community acquired bacterial pneumonia Code(s): J15.9 - UNSPECIFIED BACTERIAL PNEUMONIA Status: Acute (8) Demand ischemia of myocardium Code(s): I24.8 - OTHER FORMS OF ACUTE ISCHEMIC HEART DISEASE Status: Acute (9) Encephalopathy in sepsis Code(s): G93.41 - METABOLIC ENCEPHALOPATHY Status: Acute Comment: as well as due to metabolic factors (10) High anion gap metabolic acidosis Code(s): E87.2 - ACIDOSIS Status: Acute (11) Lactic acidosis Code(s): E87.2 - ACIDOSIS Status: Acute (12) Sepsis associated hypotension Code(s): A41.9 - SEPSIS, UNSPECIFIED ORGANISM; I95.9 - HYPOTENSION, UNSPECIFIED Status: Acute (13) Sepsis with acute organ dysfunction Code(s): A41.9 - SEPSIS, UNSPECIFIED ORGANISM; R65.20 - SEVERE SEPSIS WITHOUT SEPTIC SHOCK Status: Acute (14) UTI (urinary tract infection) Status: Acute (15) Anemia of chronic disease Code(s): D63.8 - ANEMIA IN OTHER CHRONIC DISEASES CLASSIFIED ELSEWHERE Status : Chronic Comment: with microcytosis (16) Anxiety and depression Code(s): F41.9 - ANXIETY DISORDER, UNSPECIFIED; F32.9 - MAJOR DEPRESSIVE DISORDER, SINGLE EPISODE, UNSPECIFIED Status: Chronic (17) Dyslipidemia Code(s): E78.5 - HYPERLIPIDEMIA, UNSPECIFIED Status: Chronic (18) Abnormal blood electrolyte level Code(s): E87.8 - OTH DISORDERS OF ELECTROLYTE AND FLUID BALANCE, NEC Status: Acute - Plan cont current plan of care, continue antibiotics, PT/OT, transition social worker * transfer to surgical floor will defer to surgeon and critical care team * medication reviewed as below * symptomatic treatment * continue meropenam and micafungin * wound care * discharge planning * supportive care. Review of Systems - Review of Systems Other: not reliable with pt as she is lethargic this morning - Medications/Allergies Allergies/Adverse Reactions: Allergies Allergy/AdvReac Type Severity Reaction Status Date / Time Sulfa (Sulfonamide Allergy Verified 08/05/18 15:43 Antibiotics) Medications: Current Medications Acetaminophen (Tylenol) 1,000 mg PO Q6H PRN PRN Reason: Moderate to Severe Pain (6-10) Albuterol/Ipratropium (Duoneb) 3 ml NEB [id number] [facility] Last Admin: 08/20/18 11:00 Dose: 3 ml Artificial Tears (Tears Renewed 15ml Bottle) 2 drop EA EYE PRN PRN PRN Reason: Dry Eyes Clopidogrel Bisulfate (Plavix) 75 mg PO DAILY [facility] Last Admin: 08/20/18 09:37 Dose: 75 mg Digoxin (Lanoxin) 0.125 mg PO DAILY [facility] Last Admin: 08/20/18 09:37 Dose: 0.125 mg Enoxaparin Sodium (Lovenox) 40 mg SC 0900 [facility] Last Admin: 08/20/18 09:37 Dose: 40 mg Famotidine (Pepcid) 20 mg PO BID [facility] Last Admin: 08/20/18 09:37 Dose: 20 mg Furosemide (Lasix) 40 mg SLOW IVP DAILY [facility] Stop: 08/21/18 09:01 Last Admin: 08/20/18 09:38 Dose: Not Given Hydralazine HCl (Apresoline) 10 mg SLOW IVP Q4H PRN PRN Reason: SBP > 180 and HR < 70 Meropenem 2 gm/ Miscellaneous Medication 1 each/ Sodium Chloride 100 mls @ 0 mls/hr IVPB 0800,1600,2359 [facility] Last Admin: 08/20/18 09:47 Dose: 100 mls Micafungin Sodium 100 mg/ (Sodium Chloride) 100 mls @ 100 mls/hr IVPB Q24HR [facility] Last Admin: 08/19/18 17:11 Dose: 100 mls Potassium Chloride 40 meq/ (Sodium Chloride) 270 mls @ 135 mls/hr IVPB ASDIR PRN PRN Reason: FOR SERUM K+ 2.5 - 3.5 Potassium Chloride 40 meq/ (Device) 100 mls @ 50 mls/hr IVPB ASDIR PRN PRN Reason: FOR SERUM K+ 2.5 - 3.5 Last Admin: 08/18/18 06:44 Dose: 100 mls Magnesium Sulfate 1 gm/ Sodium (Chloride) 102 mls @ 102 mls/hr IV PRN PRN PRN Reason: MAG LEVEL 1.4 - 2.0 Last Admin: 08/14/18 04:26 Dose: 102 mls Magnesium Sulfate 2 gm/ Device 100 mls @ 100 mls/hr IVPB ASDIR PRN PRN Reason: MAGNESIUM < 1.4 Potassium Phosphate 9 mmol/ (Sodium Chloride) 103 mls @ 25.75 mls/hr IVPB ASDIR PRN PRN Reason: Phosphate 1.0-1.8 Potassium Phosphate 12 mmol/ (Sodium Chloride) 254 mls @ 63.5 mls/hr IV ASDIR PRN PRN Reason: Serum phosphate 0.5-0.9 Potassium Phosphate 15 mmol/ (Sodium Chloride) 255 mls @ 63.75 mls/hr IV ASDIR PRN PRN Reason: Serum Phos < 0.5 Ibuprofen (Motrin) 600 mg PO Q6H PRN PRN Reason: Pain Latanoprost (Xalatan 0.005% Ophth Soln) 1 drop EA EYE [facility] Last Admin: 08/19/18 21:10 Dose: 1 drp Lovastatin (Mevacor) 20 mg PO [facility] Last Admin: 08/19/18 21:09 Dose: 20 mg Magnesium Oxide (Magnesium Oxide) 400 mg PO BIDPRN PRN PRN Reason: FOR SERUM MAG 1.4 - 2.0 Last Admin: 08/20/18 05:42 Dose: 400 mg Magnesium Oxide (Magnesium Oxide) 800 mg PO PRN PRN PRN Reason: FOR SERUM MAG < 1.4 Methylprednisolone Sodium Succinate (Solu-Medrol) 40 mg IVP DAILY [facility] Stop: 08/23/18 09:01 Last Admin: 08/20/18 09:38 Dose: 40 mg Miscellaneous Medication (Phos-Nak) 1 pkt PO TIDPRN PRN PRN Reason: FOR PHOS LEVEL 1.0 - 1.8 Last Admin: 08/20/18 05:42 Dose: 1 pkt Miscellaneous Medication (Phos-Nak) 2 pkt PO TIDPRN PRN PRN Reason: FOR PHOS LEVEL 0.5 - 1.0 Discontinue Previous Narcotic Pain Medications And Benzodiazepines 1 each FS .ONE [facility] Stop: 09/05/18 22:27 Ccu Electrolyte (Replacement Protocol) 0 each FS PRN PRN PRN Reason: FOR ELECTROLYTE REPLACEMENT Ondansetron HCl (Zofran) 4 mg IVP Q6H PRN PRN Reason: Nausea/Vomiting Potassium Chloride (K-Dur) 40 meq PO ASDIR PRN PRN Reason: FOR SERUM K+ 2.5 - 3.5 Potassium Chloride (Klor-Con) 40 meq PER TUBE ASDIR PRN PRN Reason: FOR SERUM K+ 2.5-3.5 Sertraline HCl (Zoloft) 50 mg PO DAILY [facility] Last Admin: 08/20/18 09:37 Dose: 50 mg Sodium Chloride (Flush - Normal Saline) 10 ml IVF Q12HR [facility] Last Admin: 08/20/18 09:39 Dose: 10 ml Sodium Chloride (Flush - Normal Saline) 10 ml IVF PRN PRN PRN Reason: Saline Flush Last Admin: 08/14/18 07:30 Dose: 10 ml Sodium Chloride ([place] Nasal [place] 0.65%) 0 ml EA NARE QIDPRN PRN PRN Reason: Nasal Congestion Timolol Maleate (Timoptic 0.5% Ophth Soln) 1 drop EA EYE BID [facility] Last Admin: 08/20/18 09:39 Dose: 1 drp Tramadol HCl (Ultram) 50 mg PO Q6H PRN PRN Reason: Moderate Pain (4-6) Tramadol HCl (Ultram) 100 mg PO Q6H PRN PRN Reason: Severe Pain (7-10)
[2018-08-20] MEDS: Micafungin 100 MG in Sodium Chloride 0.9% 100 ML IVPB SCH (18:47)
[2018-08-20] MEDS: Latanoprost 0.005% Ophth Soln 2.5 ml Bottle EA EYE SCH (21:20)
[2018-08-20] MEDS: Lovastatin 20 MG TAB PO SCH (21:20)
[2018-08-20] MEDS: Furosemide 20 MG/2 ML VIAL SLOW IVP SCH (22:34)
[2018-08-21] MEDS: Meropenem 2 GM, Admixture Fee 1 EACH in Sodium Chloride 0.9% 100 ML IVPB SCH ×3 (00:23→15:47)
[2018-08-21 06:20] VITALS: BMI 29.4
[2018-08-21] MEDS: Timolol 0.5% Ophth Soln 5 ml Bottle EA EYE SCH ×2 (08:45→20:04)
[2018-08-21] MEDS: Digoxin 0.125 MG TAB PO SCH (08:46)
[2018-08-21] MEDS: Enoxaparin Sodium 40 MG/0.4 ML SYRINGE SC SCH (08:47)
[2018-08-21] MEDS: Famotidine 20 MG TAB PO SCH ×2 (08:47→20:03)
[2018-08-21] MEDS: Furosemide 40 MG/4 ML VIAL SLOW IVP SCH (08:47)
[2018-08-21] MEDS: Clopidogrel Bisulfate 75 MG TAB PO SCH (08:47)
[2018-08-21] MEDS: methylPREDNISolone Sod Succ 40 MG VIAL IVP SCH (08:50)
--- NOTE | 2018-08-21 10:17 | PRG ---
DATE OF SERVICE: SUBJECTIVE: The patient states she feels better than yesterday. She is feeling pretty good. She is tolerating regular diet. No complaints. No nausea. PHYSICAL EXAMINATION: VITAL SIGNS: Her temperature is 98.2, pulse 110, blood pressure 145/77. GENERAL: She is awake, but a little lethargic. HEENT: Unremarkable. LUNGS: Clear. HEART: Regular rate and rhythm. ABDOMEN: Soft, nondistended, and nontender. Her ostomy is working well. She got a wound VAC on. LABORATORY DATA: Her hemoglobin is 9.8. ASSESSMENT: Little bit of tachycardia, but she has been running tachycardia for the last few days in the low range. PLAN: We will get an EKG. Job ID: [id number]
--- NOTE | 2018-08-21 11:48 | PDOC.PN ---
- Subjective Encounter Start Date: 08/21/18 Encounter Start Time: 08:45 Patient seen and examined. No new complaints. No overnight events - Objective Resuscitation Status - Order Detail: 08/05/18 13:01 Resuscitation Status Routine Resuscitation Status: FULL: Full Resuscitation MAR Reviewed: Yes Vital Signs & Weight: Vital Signs (12 hours) Temp Pulse Resp BP BP Pulse Ox 08/21/18 08:46 110 H 08/21/18 08:45 110 H 145/77 H 08/21/18 08:02 110 H 20 08/21/18 07:35 98.2 F 99 18 145/77 H 91 L 08/21/18 04:00 97.8 F 87 18 144/82 H 93 L 08/21/18 02:09 94 20 95 08/21/18 00:00 97.8 F 93 18 130/80 93 L Weight Admit Weight 164 lb 0.383 oz Weight 166 lb 4.8 oz Most Recent Monitor Data Heart Rate from ECG 105 NIBP 151/83 NIBP BP-Mean 105 Respiration from ECG 31 SpO2 100 I&O: 08/20/18 08/21/18 08/22/18 06:59 06:59 06:59 Intake Total 1775 1155 Output Total 2467 2770 Balance -622 -6095 Result Diagrams: 08/20/18 04:00 08/20/18 04:00 EKG Reviewed by me: Yes Phys Exam - Physical Examination Constitutional: NAD HEENT: PERRLA, moist MMs, sclera anicteric Neck: no JVD, supple Respiratory: no wheezing, no rhonchi right side rales Cardiovascular: RRR, no significant murmur, no rub Gastrointestinal: soft, non-tender, no distention, positive bowel sounds wound vac + Musculoskeletal: pulses present, edema present Lymphatic: no nodes Psychiatric: normal affect Skin: no rash, normal turgor Dx/Plan (1) Diverticulitis of colon with perforation Code(s): K57.20 - DVTRCLI OF LG INT W PERFORATION AND ABSCESS W/O BLEEDING Status: Acute (2) Necrotizing fasciitis Code(s): M72.6 - NECROTIZING FASCIITIS Status: Acute Comment: left flank, s/ p I & D, (3) S/P laparotomy Status: Acute Comment: for perforated colon now with colostomy, wound closed with wound vac (4) S/P colostomy Code(s): Z93.3 - COLOSTOMY STATUS Status: Acute (5) Acute respiratory failure Code(s): J96.00 - ACUTE RESPIRATORY FAILURE, UNSP W HYPOXIA OR HYPERCAPNIA Status: Acute Qualifiers: Respiratory failure complication: hypoxia Qualified Code(s): J96.01 - Acute respiratory failure with hypoxia (6) S/P chest tube placement Code(s): Z93.8 - OTHER ARTIFICIAL OPENING STATUS Status: Acute Comment: for air in mediastinum and chest (7) Community acquired bacterial pneumonia Code(s): J15.9 - UNSPECIFIED BACTERIAL PNEUMONIA Status: Acute (8) Demand ischemia of myocardium Code(s): I24.8 - OTHER FORMS OF ACUTE ISCHEMIC HEART DISEASE Status: Acute (9) Encephalopathy in sepsis Code(s): G93.41 - METABOLIC ENCEPHALOPATHY Status: Acute Comment: as well as due to metabolic factors (10) High anion gap metabolic acidosis Code(s): E87.2 - ACIDOSIS Status: Acute (11) Lactic acidosis Code(s): E87.2 - ACIDOSIS Status: Acute (12) Sepsis associated hypotension Code(s): A41.9 - SEPSIS, UNSPECIFIED ORGANISM; I95.9 - HYPOTENSION, UNSPECIFIED Status: Acute (13) Sepsis with acute organ dysfunction Code(s): A41.9 - SEPSIS, UNSPECIFIED ORGANISM; R65.20 - SEVERE SEPSIS WITHOUT SEPTIC SHOCK Status: Acute (14) UTI (urinary tract infection) Status: Acute (15) Anemia of chronic disease Code(s): D63.8 - ANEMIA IN OTHER CHRONIC DISEASES CLASSIFIED ELSEWHERE Status : Chronic Comment: with microcytosis (16) Anxiety and depression Code(s): F41.9 - ANXIETY DISORDER, UNSPECIFIED; F32.9 - MAJOR DEPRESSIVE DISORDER, SINGLE EPISODE, UNSPECIFIED Status: Chronic (17) Dyslipidemia Code(s): E78.5 - HYPERLIPIDEMIA, UNSPECIFIED Status: Chronic (18) Abnormal blood electrolyte level Code(s): E87.8 - OTH DISORDERS OF ELECTROLYTE AND FLUID BALANCE, NEC Status: Acute (19) Physical deconditioning Code(s): R53.81 - OTHER MALAISE Status: Acute - Plan cont current plan of care, continue antibiotics, 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 Review of Systems - Review of Systems Constitutional: weakness ENT: negative: Ear Pain, Ear Discharge, Nose Pain, Nose Discharge, Nose Congestion, Mouth Pain, Mouth Swelling, Throat Pain, Throat Swelling, Other Respiratory: Cough, Shortness of Breath, SOB with Excertion. negative: Dry, Hemoptysis, Pleuritic Pain, Sputum, Wheezing Cardiovascular: negative: chest pain, palpitations, orthopnea, paroxysmal nocturnal dyspnea, edema, light headedness, other Gastrointestinal: negative: Nausea, Vomiting, Abdominal Pain, Diarrhea, Constipation, Melena, Hematochezia, Other Genitourinary: negative: Dysuria, Frequency, Incontinence, Hematuria, Retention , Other - Medications/Allergies Allergies/Adverse Reactions: Allergies Allergy/AdvReac Type Severity Reaction Status Date / Time Sulfa (Sulfonamide Allergy Verified 08/05/18 15:43 Antibiotics) Medications: Current Medications Acetaminophen (Tylenol) 1,000 mg PO Q6H PRN PRN Reason: Moderate to Severe Pain (6-10) Albuterol/Ipratropium (Duoneb) 3 ml NEB [id number] [facility] Last Admin: 08/21/18 08:02 Dose: 3 ml Artificial Tears (Tears Renewed 15ml Bottle) 2 drop EA EYE PRN PRN PRN Reason: Dry Eyes Clopidogrel Bisulfate (Plavix) 75 mg PO DAILY [facility] Last Admin: 08/21/18 08:47 Dose: 75 mg Digoxin (Lanoxin) 0.125 mg PO DAILY [facility] Last Admin: 08/21/18 08:46 Dose: 0.125 mg Enoxaparin Sodium (Lovenox) 40 mg SC 0900 [facility] Last Admin: 08/21/18 08:47 Dose: 40 mg Famotidine (Pepcid) 20 mg PO BID [facility] Last Admin: 08/21/18 08:47 Dose: 20 mg Hydralazine HCl (Apresoline) 10 mg SLOW IVP Q4H PRN PRN Reason: SBP > 180 and HR < 70 Meropenem 2 gm/ Miscellaneous Medication 1 each/ Sodium Chloride 100 mls @ 0 mls/hr IVPB 0800,1600,2359 [facility] Last Admin: 08/21/18 08:46 Dose: 100 mls Micafungin Sodium 100 mg/ (Sodium Chloride) 100 mls @ 100 mls/hr IVPB Q24HR [facility] Last Admin: 08/20/18 18:47 Dose: 100 mls Magnesium Sulfate 2 gm/ Device 100 mls @ 100 mls/hr IVPB ASDIR PRN PRN Reason: MAGNESIUM < 1.4 Ibuprofen (Motrin) 600 mg PO Q6H PRN PRN Reason: Pain Latanoprost (Xalatan 0.005% Ophth Soln) 1 drop EA EYE HS [facility] Last Admin: 08/20/18 21:20 Dose: 1 drp Lovastatin (Mevacor) 20 mg PO HS [facility] Last Admin: 08/20/18 21:20 Dose: 20 mg Methylprednisolone Sodium Succinate (Solu-Medrol) 40 mg IVP DAILY [facility] Stop: 08/23/18 09:01 Last Admin: 08/21/18 08:50 Dose: 40 mg Discontinue Previous Narcotic Pain Medications And Benzodiazepines 1 each FS .ONE [facility] Stop: 09/05/18 22:27 Ccu Electrolyte (Replacement Protocol) 0 each FS PRN PRN PRN Reason: FOR ELECTROLYTE REPLACEMENT Ondansetron HCl (Zofran) 4 mg IVP Q6H PRN PRN Reason: Nausea/Vomiting Sertraline HCl (Zoloft) 50 mg PO DAILY [facility] Last Admin: 08/21/18 08:47 Dose: 50 mg Sodium Chloride (Flush - Normal Saline) 10 ml IVF Q12HR [facility] Last Admin: 08/21/18 08:50 Dose: 10 ml Sodium Chloride (Flush - Normal Saline) 10 ml IVF PRN PRN PRN Reason: Saline Flush Last Admin: 08/14/18 07:30 Dose: 10 ml Sodium Chloride (Dare Nasal [place] 0.65%) 0 ml EA NARE QIDPRN PRN PRN Reason: Nasal Congestion Timolol Maleate (Timoptic 0.5% Ophth Soln) 1 drop EA EYE BID [facility] Last Admin: 08/21/18 08:45 Dose: 1 drp Tramadol HCl (Ultram) 50 mg PO Q6H PRN PRN Reason: Moderate Pain (4-6) Last Admin: 08/20/18 14:08 Dose: 50 mg Tramadol HCl (Ultram) 100 mg PO Q6H PRN PRN Reason: Severe Pain (7-10)
[2018-08-21] MEDS: Micafungin 100 MG in Sodium Chloride 0.9% 100 ML IVPB SCH (16:54)
[2018-08-21] MEDS ORDERED: Potassium Phosphate 30 MMOL in Sodium Chloride 0.9% 500 ML IVPB SCH (18:45)
--- NOTE | 2018-08-21 19:02 | PRG ---
DATE OF SERVICE: 08/21/2018 SERVICE: Pulmonary Medicine. INTERVAL HISTORY: The patient is doing really well from respiratory standpoint. She denies having any chest pain or shortness of breath. Otherwise, there has been no interval change to her condition. There were no significant overnight events noted. PHYSICAL EXAMINATION: VITAL SIGNS: Afebrile. Pulse 100, blood pressure 135/82, respirations 19, saturation 91% on 2 L nasal cannula. On room air, her saturations were 82%. HEENT: Normocephalic and atraumatic. Sclerae are white. Conjunctivae are pink. Oral mucosa is moist without lesions. LUNGS: Decent air entry. Crackles are present dependently. HEART: Normal rate, regular. ABDOMEN: Soft, nontender, and nondistended. Bowel sounds are positive. MUSCULOSKELETAL: No cyanosis or clubbing. No pitting in the bilateral lower extremities. NEUROLOGIC: Grossly nonfocal. LABORATORY DATA: WBC 8.2, hemoglobin 9.8, and platelets 297,000. Sodium 146, chloride 109. Basic metabolic profile and liver function studies were previously unremarkable otherwise. Sputum is growing Nae, bronchial washings are growing yeast. Muscle is growing multiple Streptococcus and E coli species as well as anaerobic organisms. ASSESSMENT: 1. Acute hypoxic respiratory failure. 2. Severe anasarca. 3. Hypernatremia. 4. Severe sepsis. 5. Status post laparotomy with wound VAC in place. DISCUSSION AND PLAN: We will provide the patient with a couple of doses of Lasix. I will also give her some free water to counteract the hypernatremia. Pulmonary Critical Care will continue to follow very closely while the patient remains inhouse. Hopefully, we will be able to start removing volume from the patient. Job ID: [id number]
[2018-08-21] MEDS: Dextrose 5% in Water 1,000 ML IV SCH (20:03)
[2018-08-21] MEDS: Lovastatin 20 MG TAB PO SCH (20:04)
[2018-08-21] MEDS: Latanoprost 0.005% Ophth Soln 2.5 ml Bottle EA EYE SCH (20:07)
[2018-08-22] MEDS: Meropenem 2 GM, Admixture Fee 1 EACH in Sodium Chloride 0.9% 100 ML IVPB SCH ×3 (00:13→16:58)
[2018-08-22] MEDS: Furosemide 40 MG/4 ML VIAL SLOW IVP SCH ×2 (05:47→13:53)
[2018-08-22 06:39] LABS: Phosphorus 2.5 mg/dL (2.3-4.7)
[2018-08-22 06:41] LABS: Anion Gap 6 mmol/L (10-20); BUN (Urea Nitrogen) 19 mg/dL (9.8-20.1); Calc. Creatinine Clearance 114 mL/min (70-130); Calcium 7.5 mg/dL (7.8-10.44); Carbon Dioxide 29 mmol/L (23-31); Chloride 107 mmol/L (98-107); Estimated GFR-MDRD Greater than 90; Glucose 94 mg/dL (83-110); Magnesium 1.8 mg/dL (1.6-2.6); Potassium 3.3 mmol/L (3.5-5.1); Sodium 139 mmol/L (136-145)
[2018-08-22 06:53] LABS: #Eosinphils 0.1 thou/uL (0.0-0.7); #Monocytes 0.4 thou/uL (0.11-0.59); #Neutrophils 7.6 thou/uL (1.40-6.50); %Basophils 0.1 % (0.0-1.0); %Eosinophils 0.7 % (0.0-10.0); %Lymphocytes 19.6 % (21.0-51.0); %Monocytes 3.6 % (0.0-10.0); Anisocytosis SLIGHT = 6-15 cells (100X) (0-5/hpf); MDiff Complete? YES; Mean Corpuscular HGB CONC 31.6 g/dL (32.0-36.0); Mean Corpuscular Hemoglobin 25.8 pg (27.0-31.0); Mean Corpuscular Volume 81.6 fL (78.0-98.0); Mean Platelet Volume 8.6 fL (7.4-10.4); Platelet Count 404 thou/uL (130-400); RBC Distribution Width 20.6 % (11.5-14.5); Red Blood Cell (RBC) Count 3.88 mill/uL (4.20-5.40)
[2018-08-22] MEDS ORDERED: Potassium Chloride 20 MEQ TAB PO SCH ×2 (08:30→14:15)
--- NOTE | 2018-08-22 08:42 | PRG ---
DATE OF SERVICE: 08/22/2018 SUBJECTIVE: The patient reports having no complaints. Denies any pain. No nausea or vomiting. PHYSICAL EXAMINATION: VITAL SIGNS: Temperature 97.6, pulse 102, blood pressure 116/74. GENERAL: She is a little bit lethargic, but she answers questions. Eyes are open. LUNGS: Clear. ABDOMEN: Soft, nondistended. The wound VAC is in place. Her ostomy is working well. She has put out 2200 of urine, 30 of stool. She is on a regular diet. LABORATORY DATA: White count is 10, H and H are 10 and 31, platelet count of 404. Electrolytes are fine. ASSESSMENT: Doing well. PLAN: Continue physical therapy, rehab placement. Job ID: [id number]
[2018-08-22] MEDS: Digoxin 0.125 MG TAB PO SCH (09:07)
[2018-08-22] MEDS: Timolol 0.5% Ophth Soln 5 ml Bottle EA EYE SCH ×2 (09:10→21:30)
[2018-08-22] MEDS: Clopidogrel Bisulfate 75 MG TAB PO SCH (09:10)
[2018-08-22] MEDS: Famotidine 20 MG TAB PO SCH ×2 (09:10→21:29)
[2018-08-22] MEDS: Enoxaparin Sodium 40 MG/0.4 ML SYRINGE SC SCH (09:11)
[2018-08-22] MEDS: methylPREDNISolone Sod Succ 40 MG VIAL IVP SCH (09:12)
--- NOTE | 2018-08-22 10:59 | PDOC.PN ---
- Subjective Encounter Start Date: 08/22/18 Encounter Start Time: 08:30 Patient seen and examined. No new complaints. No overnight events - Objective Resuscitation Status - Order Detail: 08/05/18 13:01 Resuscitation Status Routine Resuscitation Status: FULL: Full Resuscitation MAR Reviewed: Yes Vital Signs & Weight: Vital Signs (12 hours) Temp Pulse Resp BP BP Pulse Ox 08/22/18 09:10 108 H 116/74 08/22/18 09:07 108 H 08/22/18 08:34 97 08/22/18 08:32 106 H 20 97 08/22/18 07:29 97.6 F 102 H 18 116/74 94 L 08/22/18 04:34 97.5 F L 97 16 129/72 94 L 08/22/18 00:19 71 20 96 08/22/18 00:09 97.4 F L 95 16 131/72 95 Weight Admit Weight 164 lb 0.383 oz Weight 166 lb 4.8 oz Most Recent Monitor Data Heart Rate from ECG 105 NIBP 151/83 NIBP BP-Mean 105 Respiration from ECG 31 SpO2 100 I&O: 08/21/18 08/22/18 08/23/18 06:59 06:59 06:59 Intake Total 8613 353 4141 Output Total 2770 2200 1455 Balance -1615 -1500 -255 Result Diagrams: 08/22/18 06:15 08/22/18 06:15 Phys Exam - Physical Examination Constitutional: NAD HEENT: PERRLA, moist MMs, sclera anicteric Neck: no JVD, supple Respiratory: no wheezing, no rales, no rhonchi reduced rales Cardiovascular: RRR, no significant murmur, no rub Gastrointestinal: soft wound vac in place Musculoskeletal: no edema, pulses present edema reduced Neurological: non-focal Lymphatic: no nodes Psychiatric: normal affect Skin: no rash, normal turgor Dx/Plan (1) Diverticulitis of colon with perforation Code(s): K57.20 - DVTRCLI OF LG INT W PERFORATION AND ABSCESS W/O BLEEDING Status: Acute (2) Necrotizing fasciitis Code(s): M72.6 - NECROTIZING FASCIITIS Status: Acute Comment: left flank, s/ p I & D, (3) S/P laparotomy Status: Acute Comment: for perforated colon now with colostomy, wound closed with wound vac (4) S/P colostomy Code(s): Z93.3 - COLOSTOMY STATUS Status: Acute (5) Acute respiratory failure Code(s): J96.00 - ACUTE RESPIRATORY FAILURE, UNSP W HYPOXIA OR HYPERCAPNIA Status: Acute Qualifiers: Respiratory failure complication: hypoxia Qualified Code(s): J96.01 - Acute respiratory failure with hypoxia (6) S/P chest tube placement Code(s): Z93.8 - OTHER ARTIFICIAL OPENING STATUS Status: Acute Comment: for air in mediastinum and chest (7) Community acquired bacterial pneumonia Code(s): J15.9 - UNSPECIFIED BACTERIAL PNEUMONIA Status: Acute (8) Demand ischemia of myocardium Code(s): I24.8 - OTHER FORMS OF ACUTE ISCHEMIC HEART DISEASE Status: Acute (9) Encephalopathy in sepsis Code(s): G93.41 - METABOLIC ENCEPHALOPATHY Status: Acute Comment: as well as due to metabolic factors (10) High anion gap metabolic acidosis Code(s): E87.2 - ACIDOSIS Status: Acute (11) Lactic acidosis Code(s): E87.2 - ACIDOSIS Status: Acute (12) Sepsis associated hypotension Code(s): A41.9 - SEPSIS, UNSPECIFIED ORGANISM; I95.9 - HYPOTENSION, UNSPECIFIED Status: Acute (13) Sepsis with acute organ dysfunction Code(s): A41.9 - SEPSIS, UNSPECIFIED ORGANISM; R65.20 - SEVERE SEPSIS WITHOUT SEPTIC SHOCK Status: Acute (14) UTI (urinary tract infection) Status: Acute (15) Anemia of chronic disease Code(s): D63.8 - ANEMIA IN OTHER CHRONIC DISEASES CLASSIFIED ELSEWHERE Status : Chronic Comment: with microcytosis (16) Anxiety and depression Code(s): F41.9 - ANXIETY DISORDER, UNSPECIFIED; F32.9 - MAJOR DEPRESSIVE DISORDER, SINGLE EPISODE, UNSPECIFIED Status: Chronic (17) Dyslipidemia Code(s): E78.5 - HYPERLIPIDEMIA, UNSPECIFIED Status: Chronic (18) Abnormal blood electrolyte level Code(s): E87.8 - OTH DISORDERS OF ELECTROLYTE AND FLUID BALANCE, NEC Status: Acute (19) Physical deconditioning Code(s): R53.81 - OTHER MALAISE Status: Acute - Plan cont current plan of care, 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 Review of Systems - Review of Systems Constitutional: weakness, malaise. negative: fever, chills, sweats, other ENT: negative: Ear Pain, Ear Discharge, Nose Pain, Nose Discharge, Nose Congestion, Mouth Pain, Mouth Swelling, Throat Pain, Throat Swelling, Other Respiratory: negative: Cough, Dry, Shortness of Breath, Hemoptysis, SOB with Excertion, Pleuritic Pain, Sputum, Wheezing Cardiovascular: negative: chest pain, palpitations, orthopnea, paroxysmal nocturnal dyspnea, edema, light headedness, other Gastrointestinal: negative: Nausea, Vomiting, Abdominal Pain, Diarrhea, Constipation, Melena, Hematochezia, Other Genitourinary: negative: Dysuria, Frequency, Incontinence, Hematuria, Retention , Other Musculoskeletal: negative: Neck Pain, Shoulder Pain, Arm Pain, Back Pain, Hand Pain, Leg Pain, Foot Pain, Other - Medications/Allergies Allergies/Adverse Reactions: Allergies Allergy/AdvReac Type Severity Reaction Status Date / Time Sulfa (Sulfonamide Allergy Verified 08/05/18 15:43 Antibiotics) Medications: Current Medications Acetaminophen (Tylenol) 1,000 mg PO Q6H PRN PRN Reason: Moderate to Severe Pain (6-10) Albuterol/Ipratropium (Duoneb) 3 ml NEB [id number] [facility] Last Admin: 08/22/18 08:32 Dose: 3 ml Artificial Tears (Tears Renewed 15ml Bottle) 2 drop EA EYE PRN PRN PRN Reason: Dry Eyes Clopidogrel Bisulfate (Plavix) 75 mg PO DAILY [facility] Last Admin: 08/22/18 09:10 Dose: 75 mg Digoxin (Lanoxin) 0.125 mg PO DAILY [facility] Last Admin: 08/22/18 09:07 Dose: 0.125 mg Enoxaparin Sodium (Lovenox) 40 mg SC 0900 [facility] Last Admin: 08/22/18 09:11 Dose: 40 mg Famotidine (Pepcid) 20 mg PO BID [facility] Last Admin: 08/22/18 09:10 Dose: 20 mg Furosemide (Lasix) 40 mg SLOW IVP 0600,1400 [facility] Last Admin: 08/22/18 05:47 Dose: 40 mg Hydralazine HCl (Apresoline) 10 mg SLOW IVP Q4H PRN PRN Reason: SBP > 180 and HR < 70 Meropenem 2 gm/ Miscellaneous Medication 1 each/ Sodium Chloride 100 mls @ 0 mls/hr IVPB 0800,1600,2359 [facility] Last Admin: 08/22/18 09:12 Dose: 100 mls Micafungin Sodium 100 mg/ (Sodium Chloride) 100 mls @ 100 mls/hr IVPB Q24HR [facility] Last Admin: 08/21/18 16:54 Dose: 100 mls Magnesium Sulfate 2 gm/ Device 100 mls @ 100 mls/hr IVPB ASDIR PRN PRN Reason: MAGNESIUM < 1.4 Dextrose/Water (D5w) 1,000 mls @ 50 mls/hr IV .Q20H [facility] Last Admin: 08/21/18 20:03 Dose: 1,000 mls Ibuprofen (Motrin) 600 mg PO Q6H PRN PRN Reason: Pain Latanoprost (Xalatan 0.005% Ophth Soln) 1 drop EA EYE HS [facility] Last Admin: 08/21/18 20:07 Dose: 1 drp Lovastatin (Mevacor) 20 mg PO HS [facility] Last Admin: 08/21/18 20:04 Dose: 20 mg Methylprednisolone Sodium Succinate (Solu-Medrol) 40 mg IVP DAILY [facility] Stop: 08/23/18 09:01 Last Admin: 08/22/18 09:12 Dose: 40 mg Discontinue Previous Narcotic Pain Medications And Benzodiazepines 1 each FS .ONE [facility] Stop: 09/05/18 22:27 Ccu Electrolyte (Replacement Protocol) 0 each FS PRN PRN PRN Reason: FOR ELECTROLYTE REPLACEMENT Ondansetron HCl (Zofran) 4 mg IVP Q6H PRN PRN Reason: Nausea/Vomiting Sertraline HCl (Zoloft) 50 mg PO DAILY [facility] Last Admin: 08/22/18 09:10 Dose: 50 mg Sodium Chloride (Flush - Normal Saline) 10 ml IVF Q12HR [facility] Last Admin: 08/22/18 09:13 Dose: 10 ml Sodium Chloride (Flush - Normal Saline) 10 ml IVF PRN PRN PRN Reason: Saline Flush Last Admin: 08/14/18 07:30 Dose: 10 ml Sodium Chloride ([place] Nasal [place] 0.65%) 0 ml EA NARE QIDPRN PRN PRN Reason: Nasal Congestion Timolol Maleate (Timoptic 0.5% Ophth Soln) 1 drop EA EYE BID [facility] Last Admin: 08/22/18 09:10 Dose: 1 drp Tramadol HCl (Ultram) 50 mg PO Q6H PRN PRN Reason: Moderate Pain (4-6) Last Admin: 08/20/18 14:08 Dose: 50 mg Tramadol HCl (Ultram) 100 mg PO Q6H PRN PRN Reason: Severe Pain (7-10)
[2018-08-22] MEDS ORDERED: Magnesium Sulfate 2 GM in Sodium Chloride 0.9% 100 ML IVPB SCH (14:15)
--- NOTE | 2018-08-22 14:42 | PRG ---
DATE OF SERVICE: 08/22/2018 SERVICE: Pulmonary Medicine. INTERVAL HISTORY: The patient is doing really well from respiratory standpoint. She is breathing comfortably. Strength is improving ever so slowly. That being said, she is able to move her feet a little bit more vigorously and her arms more vigorously today. She worked with physical therapy. Otherwise, there has been no interval change to her condition. PHYSICAL EXAMINATION: VITAL SIGNS: Afebrile, pulse 91, blood pressure 156/82, respirations 20, saturation 95% on 2 L nasal cannula. GENERAL: The patient is awake and alert, in no apparent distress. LUNGS: Decent air entry. Crackles are improved, but still present. No prolonged expiratory phase or wheezing appreciated. HEART: Normal rate and regular. ABDOMEN: Soft, nontender, and nondistended. Bowel sounds are positive. MUSCULOSKELETAL: No cyanosis or clubbing. There is 2+ pitting throughout, which is slightly improved. GENITOURINARY: Mcfarlane catheter in place. NEUROLOGIC: Grossly nonfocal. She demonstrates extreme weakness of the bilateral upper and lower extremities. LABORATORY DATA: WBC 10.0, hemoglobin 10.0, platelets 404,000. Potassium 3.3, creatinine 0.43. Basic metabolic profile is otherwise unremarkable. Her bicarb has improved to 29, calcium 7.5, magnesium 1.8. Phosphorus falls within normal limits. Sputum is growing presumptive Nae albicans. E. coli is growing in the muscle. Other organisms are there too. Anaerobic organisms are growing in miscellaneous culture. ASSESSMENT: 1. Acute hypoxic respiratory failure, improving. 2. Severe anasarca, improving. 3. Hypernatremia, resolved. 4. Severe sepsis. 5. Status post laparotomy, wound VAC in place. DISCUSSION AND PLAN: We will continue our diuretics as well as free water in order to volume contract the patient and prevent her from becoming hypernatremic. Magnesium and potassium will be replaced today. We will continue following electrolytes closely through time. Dr. Akers will resume coverage in the morning. Job ID: [id number]
[2018-08-22] MEDS ORDERED: Magnesium 2 GM/50 ML 2 GM in Premix Bag 1 BAG IVPB SCH (14:45)
[2018-08-22] MEDS: Dextrose 5% in Water 1,000 ML IV SCH ×2 (15:28→21:29)
[2018-08-22] MEDS: Micafungin 100 MG in Sodium Chloride 0.9% 100 ML IVPB SCH (17:36)
[2018-08-22] MEDS: Lovastatin 20 MG TAB PO SCH (21:29)
[2018-08-22] MEDS: Latanoprost 0.005% Ophth Soln 2.5 ml Bottle EA EYE SCH (21:30)
[2018-08-23] MEDS: Meropenem 2 GM, Admixture Fee 1 EACH in Sodium Chloride 0.9% 100 ML IVPB SCH ×4 (00:44→23:33)
[2018-08-23] MEDS: Furosemide 40 MG/4 ML VIAL SLOW IVP SCH (06:14)
[2018-08-23 06:45] LABS: Anion Gap 9 mmol/L (10-20); BUN (Urea Nitrogen) 17 mg/dL (9.8-20.1); Calc. Creatinine Clearance 119 mL/min (70-130); Calcium 7.6 mg/dL (7.8-10.44); Carbon Dioxide 29 mmol/L (23-31); Chloride 104 mmol/L (98-107); Estimated GFR-MDRD Greater than 90; Glucose 89 mg/dL (83-110); Magnesium 2.1 mg/dL (1.6-2.6); Potassium 3.3 mmol/L (3.5-5.1); Sodium 139 mmol/L (136-145)
[2018-08-23 06:51] LABS: #Eosinphils 0.2 thou/uL (0.0-0.7); #Monocytes 0.5 thou/uL (0.11-0.59); #Neutrophils 8.8 thou/uL (1.40-6.50); %Basophils 0.2 % (0.0-1.0); %Eosinophils 1.6 % (0.0-10.0); %Lymphocytes 17.2 % (21.0-51.0); %Monocytes 4.4 % (0.0-10.0); %Neutrophils 76.5 % (42.0-75.0); Hemoglobin 10.4 g/dL (12.0-16.0); Mean Corpuscular HGB CONC 30.7 g/dL (32.0-36.0); Mean Corpuscular Hemoglobin 25.4 pg (27.0-31.0); Mean Corpuscular Volume 82.8 fL (78.0-98.0); Mean Platelet Volume 8.8 fL (7.4-10.4); Platelet Count 458 thou/uL (130-400); RBC Distribution Width 21.5 % (11.5-14.5); Red Blood Cell (RBC) Count 4.07 mill/uL (4.20-5.40); White Blood Cell (WBC) Count 11.5 thou/uL (4.8-10.8)
[2018-08-23 07:32] LABS: Hypochromia SLIGHT = 6-15 cells (100X) (0-5/hpf); MDiff Complete? YES; Platelet Morphology Comment Appears Increased; Polychromasia SLIGHT = 2-3 cells (100X) (0-2/hpf)
[2018-08-23] MEDS: Timolol 0.5% Ophth Soln 5 ml Bottle EA EYE SCH ×2 (07:56→20:15)
[2018-08-23] MEDS: Enoxaparin Sodium 40 MG/0.4 ML SYRINGE SC SCH (08:00)
[2018-08-23] MEDS: methylPREDNISolone Sod Succ 40 MG VIAL IVP SCH (08:01)
[2018-08-23] MEDS: Digoxin 0.125 MG TAB PO SCH (08:01)
[2018-08-23] MEDS: Famotidine 20 MG TAB PO SCH ×2 (08:01→20:14)
[2018-08-23] MEDS: Clopidogrel Bisulfate 75 MG TAB PO SCH (08:01)
--- NOTE | 2018-08-23 10:19 | PRG ---
DATE OF SERVICE: 08/23/2018 SUBJECTIVE: This morning, she is awake, alert, responsive, weak, having some discomfort on the back. X-ray still shows rather impressive bilateral infiltrates, though much improved. OBJECTIVE: CHEST: Bilateral rhonchi and crackles. CARDIAC: Normal S1, S2. No gallop. ABDOMEN: No masses. LABORATORY DATA: White count 11,000 and H and H 10 and 31, and platelet count 458. IMPRESSION: 1. Respiratory failure, probably some diastolic dysfunction. 2. Status post lap. 3. Anasarca. PLAN: Continue broad-spectrum antibiotics, neb treatments, and PT. We will follow. Job ID: [id number]
--- NOTE | 2018-08-23 11:28 | PRG ---
DATE OF SERVICE: 08/23/2018 SUBJECTIVE: Ms. Monroy is doing well today. She continues on meropenem and micafungin IV. White count is 11 and hemoglobin 10.4. This morning, her sodium is 139, potassium 3.3, chloride 104, BUN 17, and creatinine 0.41. The patient is very weak. OBJECTIVE: LUNGS: Clear to auscultation. CARDIAC: Regular rate and rhythm without murmur or gallop. ABDOMEN: Soft and nontender. Colostomy output is good. Wound Care changed her wound VAC today. Midline wound and left flank wounds are granulating, looks better. Pulmonary Medicine is seen her today. She is doing well. Overall, she is edematous secondary to low protein levels, hypoproteinemia, anasarca, malnutrition. She has diastolic dysfunction. She has recovered from respiratory failures on the floor to maintain her airway. ASSESSMENT AND PLAN: 1. Malnutrition. Continue nutritional supplements. Regular diet as tolerated. 2. Respiratory failure, now extubated, doing well. Continue reconditioning. 3. Severe deconditioning. Continue reconditioning, rehab consult, possible longterm pending on ability to interact with therapy. 4. Open wounds, abdomen, left flank. Continue wound VAC care. 5. Colostomy status, status post colon resection for diverticulitis. 6. Continue meropenem and micafungin while in the hospital. We will discontinue these antibiotics in the next day or two. She will not need to be on IV antibiotics on discharge. Job ID: [id number]
--- NOTE | 2018-08-23 11:39 | PDOC.PN ---
- Subjective Encounter Start Date: 08/23/18 Encounter Start Time: 08:20 pt is very weak, Patient seen and examined. No overnight events - Objective Resuscitation Status - Order Detail: 08/05/18 13:01 Resuscitation Status Routine Resuscitation Status: FULL: Full Resuscitation MAR Reviewed: Yes Vital Signs & Weight: Vital Signs (12 hours) Temp Pulse Resp BP BP Pulse Ox 08/23/18 08:20 97.4 F L 92 20 110/75 96 08/23/18 08:01 94 96 08/23/18 07:56 94 110/75 08/23/18 06:30 95 08/23/18 06:28 83 16 95 08/23/18 05:37 97.2 F L 83 22 H 121/73 94 L 08/23/18 00:45 97.4 F L 84 23 H 119/74 94 L 08/22/18 23:57 86 18 95 Weight Admit Weight 164 lb 0.383 oz Weight 166 lb 4.8 oz Most Recent Monitor Data Heart Rate from ECG 105 NIBP 151/83 NIBP BP-Mean 105 Respiration from ECG 31 SpO2 100 I&O: 08/22/18 08/23/18 08/24/18 06:59 06:59 06:59 Intake Total 700 3120 Output Total 2200 4355 Balance -1500 -1235 Result Diagrams: 08/23/18 05:45 08/23/18 05:45 Phys Exam - Physical Examination Constitutional: NAD HEENT: PERRLA, moist MMs, sclera anicteric Neck: no JVD, supple few rales on right side Cardiovascular: RRR, no significant murmur, no rub Gastrointestinal: soft colostomy+, wound vac+ Musculoskeletal: pulses present, edema present Neurological: non-focal, normal sensation Lymphatic: no nodes Psychiatric: normal affect Skin: no rash, normal turgor Dx/Plan (1) Diverticulitis of colon with perforation Code(s): K57.20 - DVTRCLI OF LG INT W PERFORATION AND ABSCESS W/O BLEEDING Status: Acute (2) Necrotizing fasciitis Code(s): M72.6 - NECROTIZING FASCIITIS Status: Acute Comment: left flank, s/ p I & D, (3) S/P laparotomy Status: Acute Comment: for perforated colon now with colostomy, wound closed with wound vac (4) S/P colostomy Code(s): Z93.3 - COLOSTOMY STATUS Status: Acute (5) Acute respiratory failure Code(s): J96.00 - ACUTE RESPIRATORY FAILURE, UNSP W HYPOXIA OR HYPERCAPNIA Status: Acute Qualifiers: Respiratory failure complication: hypoxia Qualified Code(s): J96.01 - Acute respiratory failure with hypoxia (6) S/P chest tube placement Code(s): Z93.8 - OTHER ARTIFICIAL OPENING STATUS Status: Acute Comment: for air in mediastinum and chest (7) Community acquired bacterial pneumonia Code(s): J15.9 - UNSPECIFIED BACTERIAL PNEUMONIA Status: Acute (8) Demand ischemia of myocardium Code(s): I24.8 - OTHER FORMS OF ACUTE ISCHEMIC HEART DISEASE Status: Acute (9) Encephalopathy in sepsis Code(s): G93.41 - METABOLIC ENCEPHALOPATHY Status: Acute Comment: as well as due to metabolic factors (10) High anion gap metabolic acidosis Code(s): E87.2 - ACIDOSIS Status: Acute (11) Lactic acidosis Code(s): E87.2 - ACIDOSIS Status: Acute (12) Sepsis associated hypotension Code(s): A41.9 - SEPSIS, UNSPECIFIED ORGANISM; I95.9 - HYPOTENSION, UNSPECIFIED Status: Acute (13) Sepsis with acute organ dysfunction Code(s): A41.9 - SEPSIS, UNSPECIFIED ORGANISM; R65.20 - SEVERE SEPSIS WITHOUT SEPTIC SHOCK Status: Acute (14) UTI (urinary tract infection) Status: Acute (15) Anemia of chronic disease Code(s): D63.8 - ANEMIA IN OTHER CHRONIC DISEASES CLASSIFIED ELSEWHERE Status : Chronic Comment: with microcytosis (16) Anxiety and depression Code(s): F41.9 - ANXIETY DISORDER, UNSPECIFIED; F32.9 - MAJOR DEPRESSIVE DISORDER, SINGLE EPISODE, UNSPECIFIED Status: Chronic (17) Dyslipidemia Code(s): E78.5 - HYPERLIPIDEMIA, UNSPECIFIED Status: Chronic (18) Abnormal blood electrolyte level Code(s): E87.8 - OTH DISORDERS OF ELECTROLYTE AND FLUID BALANCE, NEC Status: Acute (19) Physical deconditioning Code(s): R53.81 - OTHER MALAISE Status: Acute - Plan cont current plan of care, 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 Review of Systems - Review of Systems Other: not reliable due to dementia and cognitive status - Medications/Allergies Allergies/Adverse Reactions: Allergies Allergy/AdvReac Type Severity Reaction Status Date / Time Sulfa (Sulfonamide Allergy Verified 08/05/18 15:43 Antibiotics) Medications: Current Medications Acetaminophen (Tylenol) 1,000 mg PO Q6H PRN PRN Reason: Moderate to Severe Pain (6-10) Albuterol/Ipratropium (Duoneb) 3 ml NEB [id number] [facility] Last Admin: 08/23/18 06:28 Dose: 3 ml Artificial Tears (Tears Renewed 15ml Bottle) 2 drop EA EYE PRN PRN PRN Reason: Dry Eyes Clopidogrel Bisulfate (Plavix) 75 mg PO DAILY [facility] Last Admin: 08/23/18 08:01 Dose: 75 mg Digoxin (Lanoxin) 0.125 mg PO DAILY [facility] Last Admin: 08/23/18 08:01 Dose: 0.125 mg Enoxaparin Sodium (Lovenox) 40 mg SC 0900 [facility] Last Admin: 08/23/18 08:00 Dose: 40 mg Famotidine (Pepcid) 20 mg PO BID [facility] Last Admin: 08/23/18 08:01 Dose: 20 mg Furosemide (Lasix) 40 mg SLOW IVP 0600 [facility] Last Admin: 08/23/18 06:14 Dose: 40 mg Hydralazine HCl (Apresoline) 10 mg SLOW IVP Q4H PRN PRN Reason: SBP > 180 and HR < 70 Meropenem 2 gm/ Miscellaneous Medication 1 each/ Sodium Chloride 100 mls @ 0 mls/hr IVPB 0800,1600,2359 [facility] Last Admin: 08/23/18 07:56 Dose: 100 mls Micafungin Sodium 100 mg/ (Sodium Chloride) 100 mls @ 100 mls/hr IVPB Q24HR [facility] Last Admin: 08/22/18 17:36 Dose: 100 mls Magnesium Sulfate 2 gm/ Device 100 mls @ 100 mls/hr IVPB ASDIR PRN PRN Reason: MAGNESIUM < 1.4 Dextrose/Water (D5w) 1,000 mls @ 50 mls/hr IV .Q20H [facility] Last Admin: 08/22/18 21:29 Dose: 1,000 mls Ibuprofen (Motrin) 600 mg PO Q6H PRN PRN Reason: Pain Latanoprost (Xalatan 0.005% Ophth Soln) 1 drop EA EYE HS [facility] Last Admin: 08/22/18 21:30 Dose: 1 drp Lovastatin (Mevacor) 20 mg PO HS [facility] Last Admin: 08/22/18 21:29 Dose: 20 mg Discontinue Previous Narcotic Pain Medications And Benzodiazepines 1 each FS .ONE [facility] Stop: 09/05/18 22:27 Ccu Electrolyte (Replacement Protocol) 0 each FS PRN PRN PRN Reason: FOR ELECTROLYTE REPLACEMENT Ondansetron HCl (Zofran) 4 mg IVP Q6H PRN PRN Reason: Nausea/Vomiting Potassium Chloride (Klor-Con) 20 meq PO QAM-WM [facility] Last Admin: 08/23/18 08:01 Dose: 20 meq Sertraline HCl (Zoloft) 50 mg PO DAILY [facility] Last Admin: 08/23/18 08:01 Dose: 50 mg Sodium Chloride (Flush - Normal Saline) 10 ml IVF Q12HR [facility] Last Admin: 08/23/18 08:02 Dose: 10 ml Sodium Chloride (Flush - Normal Saline) 10 ml IVF PRN PRN PRN Reason: Saline Flush Last Admin: 08/14/18 07:30 Dose: 10 ml Sodium Chloride ([place] Nasal [place] 0.65%) 0 ml EA NARE QIDPRN PRN PRN Reason: Nasal Congestion Timolol Maleate (Timoptic 0.5% Ophth Soln) 1 drop EA EYE BID [facility] Last Admin: 08/23/18 07:56 Dose: 1 drp Tramadol HCl (Ultram) 50 mg PO Q6H PRN PRN Reason: Moderate Pain (4-6) Last Admin: 08/20/18 14:08 Dose: 50 mg Tramadol HCl (Ultram) 100 mg PO Q6H PRN PRN Reason: Severe Pain (7-10) Last Admin: 08/23/18 08:43 Dose: 100 mg
[2018-08-23] MEDS: Micafungin 100 MG in Sodium Chloride 0.9% 100 ML IVPB SCH (16:51)
--- NOTE | 2018-08-23 17:27 | EKG ---
Test Reason : Blood Pressure : / mmHG Vent. Rate : 096 BPM Atrial Rate : 096 BPM P-R Int : 116 ms QRS Dur : 064 ms QT Int : 318 ms P-R-T Axes : 022 000 -03 degrees QTc Int : 401 ms Normal sinus rhythm Possible Left atrial enlargement Left ventricular hypertrophy Abnormal ECG When compared with ECG of 05-AUG-2018 09:40, Nonspecific T wave abnormality now evident in Lateral leads Confirmed by CARIDAD AGUILERA, SNusrat ([id number]) on 08/23/2018 5:27:12 PM Referred By: RADHA Confirmed By:DR. Reina MCLEAN MD
[2018-08-23] MEDS: Latanoprost 0.005% Ophth Soln 2.5 ml Bottle EA EYE SCH (20:15)
[2018-08-23] MEDS: Lovastatin 20 MG TAB PO SCH (20:15)
[2018-08-23] MEDS: Dextrose 5% in Water 1,000 ML IV SCH (23:33)
[2018-08-24] MEDS ORDERED: Furosemide 40 MG TAB PO SCH (05:15)
[2018-08-24] MEDS: Furosemide 40 MG/4 ML VIAL SLOW IVP SCH (05:25)
[2018-08-24 07:29] LABS: %Basophils 0.1 % (0.0-1.0); %Eosinophils 2.5 % (0.0-10.0); %Lymphocytes 16.5 % (21.0-51.0); %Monocytes 3.2 % (0.0-10.0); %Neutrophils 77.7 % (42.0-75.0); Hemoglobin 11.6 g/dL (12.0-16.0); Mean Corpuscular HGB CONC 31.4 g/dL (32.0-36.0); Mean Corpuscular Hemoglobin 25.5 pg (27.0-31.0); Mean Corpuscular Volume 81.2 fL (78.0-98.0); Mean Platelet Volume 8.9 fL (7.4-10.4); Platelet Count 501 thou/uL (130-400); RBC Distribution Width 21.4 % (11.5-14.5); Red Blood Cell (RBC) Count 4.53 mill/uL (4.20-5.40); White Blood Cell (WBC) Count 13.1 thou/uL (4.8-10.8)
[2018-08-24 07:34] LABS: Anion Gap 12 mmol/L (10-20); BUN (Urea Nitrogen) 16 mg/dL (9.8-20.1); Calc. Creatinine Clearance 122 mL/min (70-130); Calcium 7.6 mg/dL (7.8-10.44); Carbon Dioxide 27 mmol/L (23-31); Chloride 103 mmol/L (98-107); Estimated GFR-MDRD Greater than 90; Glucose 74 mg/dL (83-110); Potassium 3.6 mmol/L (3.5-5.1); Sodium 138 mmol/L (136-145)
[2018-08-24] MEDS: Famotidine 20 MG TAB PO SCH ×2 (09:03→20:26)
[2018-08-24] MEDS: Enoxaparin Sodium 40 MG/0.4 ML SYRINGE SC SCH (09:04)
[2018-08-24] MEDS: Timolol 0.5% Ophth Soln 5 ml Bottle EA EYE SCH ×2 (09:04→20:30)
[2018-08-24] MEDS: Digoxin 0.125 MG TAB PO SCH (09:04)
[2018-08-24] MEDS: Clopidogrel Bisulfate 75 MG TAB PO SCH (09:04)
[2018-08-24] MEDS: Meropenem 2 GM, Admixture Fee 1 EACH in Sodium Chloride 0.9% 100 ML IVPB SCH ×3 (09:57→23:14)
--- NOTE | 2018-08-24 09:59 | PRG ---
DATE OF SERVICE: 08/24/2018 SUBJECTIVE: This morning, she denies any pain or discomfort or shortness of breath. OBJECTIVE: VITAL SIGNS: Saturations are 95% on 2 L, respiratory rate 20, temperature 97, and blood pressure 130/80. CHEST: Decreased breath sounds, left greater than right. CARDIAC: Normal S1 and S2. No gallops. ABDOMEN: Soft. LABORATORY DATA: White count of 13,000. Labs otherwise unremarkable. Lytes are normal. ASSESSMENT: 1. Abdominal sepsis. 2. Lap. 3. Severe deconditioning. 4. Urinary tract infection. 5. Left pleural effusion. PLAN: 1. Continue supportive care and PT. 2. Eventually placement. Job ID: [id number]
--- NOTE | 2018-08-24 10:58 | PDOC.PN ---
- Subjective Encounter Start Date: 08/24/18 Encounter Start Time: 08:10 Patient seen and examined. No new complaints. No overnight events - Objective Resuscitation Status - Order Detail: 08/05/18 13:01 Resuscitation Status Routine Resuscitation Status: FULL: Full Resuscitation MAR Reviewed: Yes Vital Signs & Weight: Vital Signs (12 hours) Temp Pulse Resp BP Pulse Ox 08/24/18 09:04 95 08/24/18 07:47 97.4 F L 95 20 130/80 95 08/24/18 06:21 90 12 98 08/24/18 04:00 97.6 F 87 16 112/76 96 08/24/18 00:56 99 18 99 08/23/18 23:44 97.4 F L 86 14 127/81 95 08/23/18 23:30 99 Weight Admit Weight 164 lb 0.383 oz Weight 166 lb 4.8 oz Most Recent Monitor Data Heart Rate from ECG 105 NIBP 151/83 NIBP BP-Mean 105 Respiration from ECG 31 SpO2 100 I&O: 08/23/18 08/24/18 08/25/18 06:59 06:59 06:59 Intake Total 3120 1350 Output Total 4355 1090 Balance -1235 260 Result Diagrams: 08/24/18 06:50 08/24/18 06:50 Phys Exam - Physical Examination Constitutional: NAD HEENT: PERRLA, moist MMs, sclera anicteric Neck: no JVD, supple Respiratory: no wheezing, no rales, no rhonchi Cardiovascular: RRR, no significant murmur, no rub Gastrointestinal: soft, non-tender, no distention, positive bowel sounds colostomy+, wound vac+ Musculoskeletal: no edema, pulses present Neurological: non-focal, normal sensation Lymphatic: no nodes Psychiatric: normal affect Skin: no rash, normal turgor Dx/Plan (1) Diverticulitis of colon with perforation Code(s): K57.20 - DVTRCLI OF LG INT W PERFORATION AND ABSCESS W/O BLEEDING Status: Acute (2) Necrotizing fasciitis Code(s): M72.6 - NECROTIZING FASCIITIS Status: Acute Comment: left flank, s/ p I & D, (3) S/P laparotomy Status: Acute Comment: for perforated colon now with colostomy, wound closed with wound vac (4) S/P colostomy Code(s): Z93.3 - COLOSTOMY STATUS Status: Acute (5) Acute respiratory failure Code(s): J96.00 - ACUTE RESPIRATORY FAILURE, UNSP W HYPOXIA OR HYPERCAPNIA Status: Acute Qualifiers: Respiratory failure complication: hypoxia Qualified Code(s): J96.01 - Acute respiratory failure with hypoxia (6) S/P chest tube placement Code(s): Z93.8 - OTHER ARTIFICIAL OPENING STATUS Status: Resolved Comment: for air in mediastinum and chest (7) Community acquired bacterial pneumonia Code(s): J15.9 - UNSPECIFIED BACTERIAL PNEUMONIA Status: Acute (8) Demand ischemia of myocardium Code(s): I24.8 - OTHER FORMS OF ACUTE ISCHEMIC HEART DISEASE Status: Acute (9) Encephalopathy in sepsis Code(s): G93.41 - METABOLIC ENCEPHALOPATHY Status: Resolved Comment: as well as due to metabolic factors (10) High anion gap metabolic acidosis Code(s): E87.2 - ACIDOSIS Status: Resolved (11) Lactic acidosis Code(s): E87.2 - ACIDOSIS Status: Resolved (12) Sepsis associated hypotension Code(s): A41.9 - SEPSIS, UNSPECIFIED ORGANISM; I95.9 - HYPOTENSION, UNSPECIFIED Status: Resolved (13) Sepsis with acute organ dysfunction Code(s): A41.9 - SEPSIS, UNSPECIFIED ORGANISM; R65.20 - SEVERE SEPSIS WITHOUT SEPTIC SHOCK Status: Acute (14) UTI (urinary tract infection) Status: Acute (15) Anemia of chronic disease Code(s): D63.8 - ANEMIA IN OTHER CHRONIC DISEASES CLASSIFIED ELSEWHERE Status : Chronic Comment: with microcytosis (16) Anxiety and depression Code(s): F41.9 - ANXIETY DISORDER, UNSPECIFIED; F32.9 - MAJOR DEPRESSIVE DISORDER, SINGLE EPISODE, UNSPECIFIED Status: Chronic (17) Dyslipidemia Code(s): E78.5 - HYPERLIPIDEMIA, UNSPECIFIED Status: Chronic (18) Abnormal blood electrolyte level Code(s): E87.8 - OTH DISORDERS OF ELECTROLYTE AND FLUID BALANCE, NEC Status: Acute (19) Physical deconditioning Code(s): R53.81 - OTHER MALAISE Status: Acute - Plan cont current plan of care, 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 Review of Systems - Review of Systems Constitutional: weakness. negative: fever, chills, sweats, malaise, other ENT: negative: Ear Pain, Ear Discharge, Nose Pain, Nose Discharge, Nose Congestion, Mouth Pain, Mouth Swelling, Throat Pain, Throat Swelling, Other Respiratory: negative: Cough, Dry, Shortness of Breath, Hemoptysis, SOB with Excertion, Pleuritic Pain, Sputum, Wheezing Cardiovascular: negative: chest pain, palpitations, orthopnea, paroxysmal nocturnal dyspnea, edema, light headedness, other Gastrointestinal: negative: Nausea, Vomiting, Abdominal Pain, Diarrhea, Constipation, Melena, Hematochezia, Other Genitourinary: negative: Dysuria, Frequency, Incontinence, Hematuria, Retention , Other Musculoskeletal: negative: Neck Pain, Shoulder Pain, Arm Pain, Back Pain, Hand Pain, Leg Pain, Foot Pain, Other - Medications/Allergies Allergies/Adverse Reactions: Allergies Allergy/AdvReac Type Severity Reaction Status Date / Time Sulfa (Sulfonamide Allergy Verified 08/05/18 15:43 Antibiotics) Medications: Current Medications Acetaminophen (Tylenol) 1,000 mg PO Q6H PRN PRN Reason: Moderate to Severe Pain (6-10) Albuterol/Ipratropium (Duoneb) 3 ml NEB [id number] [facility] Last Admin: 08/24/18 06:21 Dose: 3 ml Artificial Tears (Tears Renewed 15ml Bottle) 2 drop EA EYE PRN PRN PRN Reason: Dry Eyes Clopidogrel Bisulfate (Plavix) 75 mg PO DAILY [facility] Last Admin: 08/24/18 09:04 Dose: 75 mg Digoxin (Lanoxin) 0.125 mg PO DAILY [facility] Last Admin: 08/24/18 09:04 Dose: 0.125 mg Enoxaparin Sodium (Lovenox) 40 mg SC 0900 [facility] Last Admin: 08/24/18 09:04 Dose: 40 mg Famotidine (Pepcid) 20 mg PO BID [facility] Last Admin: 08/24/18 09:03 Dose: 20 mg Hydralazine HCl (Apresoline) 10 mg SLOW IVP Q4H PRN PRN Reason: SBP > 180 and HR < 70 Meropenem 2 gm/ Miscellaneous Medication 1 each/ Sodium Chloride 100 mls @ 0 mls/hr IVPB 0800,1600,2359 [facility] Last Admin: 08/24/18 09:57 Dose: 100 mls Magnesium Sulfate 2 gm/ Device 100 mls @ 100 mls/hr IVPB ASDIR PRN PRN Reason: MAGNESIUM < 1.4 Dextrose/Water (D5w) 1,000 mls @ 50 mls/hr IV .Q20H [facility] Last Admin: 08/23/18 23:33 Dose: 1,000 mls Ibuprofen (Motrin) 600 mg PO Q6H PRN PRN Reason: Pain Latanoprost (Xalatan 0.005% Ophth Soln) 1 drop EA EYE HS [facility] Last Admin: 08/23/18 20:15 Dose: 1 drp Lovastatin (Mevacor) 20 mg PO HS [facility] Last Admin: 08/23/18 20:15 Dose: 20 mg Discontinue Previous Narcotic Pain Medications And Benzodiazepines 1 each FS .ONE [facility] Stop: 09/05/18 22:27 Ccu Electrolyte (Replacement Protocol) 0 each FS PRN PRN PRN Reason: FOR ELECTROLYTE REPLACEMENT Ondansetron HCl (Zofran) 4 mg IVP Q6H PRN PRN Reason: Nausea/Vomiting Potassium Chloride (Klor-Con) 20 meq PO QAM-WM [facility] Last Admin: 08/24/18 09:04 Dose: 20 meq Sertraline HCl (Zoloft) 50 mg PO DAILY [facility] Last Admin: 08/24/18 09:04 Dose: 50 mg Sodium Chloride (Flush - Normal Saline) 10 ml IVF Q12HR [facility] Last Admin: 08/23/18 20:15 Dose: Not Given Sodium Chloride (Flush - Normal Saline) 10 ml IVF PRN PRN PRN Reason: Saline Flush Last Admin: 08/14/18 07:30 Dose: 10 ml Sodium Chloride ([place] Nasal [place] 0.65%) 0 ml EA NARE QIDPRN PRN PRN Reason: Nasal Congestion Timolol Maleate (Timoptic 0.5% Ophth Soln) 1 drop EA EYE BID [facility] Last Admin: 08/24/18 09:04 Dose: 1 drp Tramadol HCl (Ultram) 50 mg PO Q6H PRN PRN Reason: Moderate Pain (4-6) Last Admin: 08/20/18 14:08 Dose: 50 mg Tramadol HCl (Ultram) 100 mg PO Q6H PRN PRN Reason: Severe Pain (7-10) Last Admin: 08/23/18 08:43 Dose: 100 mg
--- NOTE | 2018-08-24 17:04 | PRG ---
DATE OF SERVICE: 08/24/2018 SUBJECTIVE: Ms. Monroy is doing well today. She is eating slightly more of her diet, consuming 1/3 to 1/2. OBJECTIVE: VITAL SIGNS: Temperature 97.4 degrees, 90 heart rate, blood pressure 134/82. GENERAL: She has been up out of bed, into a chair today. LUNGS: Clear to auscultation. CARDIAC: Regular rate and rhythm. No murmur or gallop. ABDOMEN: Soft. Stool in her colostomy bag. Colostomy is healthy. Midline wound VAC in place. Left flank wounds VAC in place. Urine output 900 mL in 24 hours. LABORATORY DATA: White count 13 and hemoglobin 11.6. Basic metabolic profile is normal. ASSESSMENT AND PLAN: 1. Sepsis, resolved. 2. Respiratory failure, resolved. 3. Necrotizing fasciitis, improved. No evidence of infection. Wounds are healing. 4. Diverticulitis necessitans, resolved. 5. Retroperitoneal abscess, resolved. 6. Deconditioning. Aggressive physical therapy and mobility. Physical therapy rehab consult pending and anticipate rehab transfer in 48 hours. 7. Malnutrition, 20- to 30-pound weight loss prior to this hospitalization with severe malnutrition. Continue nutritional supplementation. Job ID: [id number]
[2018-08-24] MEDS: Latanoprost 0.005% Ophth Soln 2.5 ml Bottle EA EYE SCH (20:26)
[2018-08-24] MEDS: Lovastatin 20 MG TAB PO SCH (20:26)
--- NOTE | 2018-08-25 08:08 | RAD ---
CHEST 1 VIEW: Date: 08/25/18 HISTORY: Congestive heart failure. COMPARISON: 08/20/18. FINDINGS: Again noted are abnormal bilateral alveolar and interstitial opacities throughout almost the entire r ight lung and left lower lobe, although there appears to be definite improvement compared to the 08/07 study. Bilateral pleural effusions remain. IMPRESSION: Improving extensive bilateral interstitial and alveolar infiltrates with persistent bilateral pleural effusions. Continue follow-up for complete clearing. POS: TPC
[2018-08-25] MEDS: Enoxaparin Sodium 40 MG/0.4 ML SYRINGE SC SCH (08:32)
[2018-08-25] MEDS: Meropenem 2 GM, Admixture Fee 1 EACH in Sodium Chloride 0.9% 100 ML IVPB SCH (08:32)
[2018-08-25] MEDS: Timolol 0.5% Ophth Soln 5 ml Bottle EA EYE SCH ×2 (08:32→21:09)
[2018-08-25] MEDS: Digoxin 0.125 MG TAB PO SCH (08:33)
[2018-08-25] MEDS: Clopidogrel Bisulfate 75 MG TAB PO SCH (08:35)
[2018-08-25] MEDS: Famotidine 20 MG TAB PO SCH ×2 (08:35→21:10)
--- NOTE | 2018-08-25 09:39 | PRG ---
DATE OF SERVICE: 08/25/2018 SUBJECTIVE: This morning, she is awake, responsive, appears to be less short of breath. OBJECTIVE: VITAL SIGNS: Saturations 92% on 2 L, respiratory rate 18, temperature 97, blood pressure is 109/65, pulse is 92. CHEST: Crackles bilaterally. CARDIAC: Normal S1 and S2. No gallops. ABDOMEN: No masses. IMAGING DATA: X-ray surprisingly shows rather extensive bilateral infiltrates, much improved. IMPRESSION: 1. Bilateral bronchopneumonia, culture negative, probably hospital-acquired. 2. Diastolic dysfunction, improved. 3. Status post laparotomy. 4. Severe deconditioning. 5. Severe nutritional deficit. PLAN: I will continue meropenem, PT, and supportive care. Job ID: [id number]
--- NOTE | 2018-08-25 10:39 | PDOC.PN ---
- Subjective Encounter Start Date: 08/25/18 Encounter Start Time: 08:00 Patient seen and examined. No new complaints. No overnight events - Objective Resuscitation Status - Order Detail: 08/05/18 13:01 Resuscitation Status Routine Resuscitation Status: FULL: Full Resuscitation MAR Reviewed: Yes Vital Signs & Weight: Vital Signs (12 hours) Temp Pulse Resp BP BP Pulse Ox 08/25/18 08:33 100 08/25/18 08:32 92 109/65 08/25/18 07:23 97.8 F 92 22 H 109/65 94 L 08/25/18 06:10 89 14 94 L 08/25/18 04:24 97.8 F 92 20 115/68 94 L 08/25/18 00:02 86 16 94 L 08/24/18 23:16 97.7 F 85 18 102/60 94 L Weight Admit Weight 155 lb 14.4 oz Weight 166 lb 4.8 oz Most Recent Monitor Data Heart Rate from ECG 105 NIBP 151/83 NIBP BP-Mean 105 Respiration from ECG 31 SpO2 100 I&O: 08/24/18 08/25/18 08/26/18 06:59 06:59 06:59 Intake Total 1350 1535 Output Total 1090 1335 Balance 260 200 Result Diagrams: 08/24/18 06:50 08/24/18 06:50 Phys Exam - Physical Examination Constitutional: NAD HEENT: PERRLA, moist MMs, sclera anicteric Neck: no JVD, supple Respiratory: no wheezing, no rales, no rhonchi Cardiovascular: RRR, no significant murmur Gastrointestinal: soft, non-tender, no distention, positive bowel sounds wound vac+, colostomy+ Musculoskeletal: no edema, pulses present Neurological: moves all 4 limbs Lymphatic: no nodes Psychiatric: normal affect Skin: no rash, normal turgor Dx/Plan (1) Diverticulitis of colon with perforation Code(s): K57.20 - DVTRCLI OF LG INT W PERFORATION AND ABSCESS W/O BLEEDING Status: Acute (2) Necrotizing fasciitis Code(s): M72.6 - NECROTIZING FASCIITIS Status: Acute Comment: left flank, s/ p I & D, (3) S/P laparotomy Status: Acute Comment: for perforated colon now with colostomy, wound closed with wound vac (4) S/P colostomy Code(s): Z93.3 - COLOSTOMY STATUS Status: Acute (5) Acute respiratory failure Code(s): J96.00 - ACUTE RESPIRATORY FAILURE, UNSP W HYPOXIA OR HYPERCAPNIA Status: Acute Qualifiers: Respiratory failure complication: hypoxia Qualified Code(s): J96.01 - Acute respiratory failure with hypoxia (6) S/P chest tube placement Code(s): Z93.8 - OTHER ARTIFICIAL OPENING STATUS Status: Resolved Comment: for air in mediastinum and chest (7) Community acquired bacterial pneumonia Code(s): J15.9 - UNSPECIFIED BACTERIAL PNEUMONIA Status: Acute (8) Demand ischemia of myocardium Code(s): I24.8 - OTHER FORMS OF ACUTE ISCHEMIC HEART DISEASE Status: Acute (9) Encephalopathy in sepsis Code(s): G93.41 - METABOLIC ENCEPHALOPATHY Status: Resolved Comment: as well as due to metabolic factors (10) High anion gap metabolic acidosis Code(s): E87.2 - ACIDOSIS Status: Resolved (11) Lactic acidosis Code(s): E87.2 - ACIDOSIS Status: Resolved (12) Sepsis associated hypotension Code(s): A41.9 - SEPSIS, UNSPECIFIED ORGANISM; I95.9 - HYPOTENSION, UNSPECIFIED Status: Resolved (13) Sepsis with acute organ dysfunction Code(s): A41.9 - SEPSIS, UNSPECIFIED ORGANISM; R65.20 - SEVERE SEPSIS WITHOUT SEPTIC SHOCK Status: Acute (14) UTI (urinary tract infection) Status: Acute (15) Anemia of chronic disease Code(s): D63.8 - ANEMIA IN OTHER CHRONIC DISEASES CLASSIFIED ELSEWHERE Status : Chronic Comment: with microcytosis (16) Anxiety and depression Code(s): F41.9 - ANXIETY DISORDER, UNSPECIFIED; F32.9 - MAJOR DEPRESSIVE DISORDER, SINGLE EPISODE, UNSPECIFIED Status: Chronic (17) Dyslipidemia Code(s): E78.5 - HYPERLIPIDEMIA, UNSPECIFIED Status: Chronic (18) Abnormal blood electrolyte level Code(s): E87.8 - OTH DISORDERS OF ELECTROLYTE AND FLUID BALANCE, NEC Status: Acute (19) Physical deconditioning Code(s): R53.81 - OTHER MALAISE Status: Acute - Plan 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 Review of Systems - Review of Systems Constitutional: weakness. negative: fever, chills, sweats, malaise, other ENT: negative: Ear Pain, Ear Discharge, Nose Pain, Nose Discharge, Nose Congestion, Mouth Pain, Mouth Swelling, Throat Pain, Throat Swelling, Other Respiratory: negative: Cough, Dry, Shortness of Breath, Hemoptysis, SOB with Excertion, Pleuritic Pain, Sputum, Wheezing Cardiovascular: negative: chest pain, palpitations, orthopnea, paroxysmal nocturnal dyspnea, edema, light headedness, other Gastrointestinal: negative: Nausea, Vomiting, Abdominal Pain, Diarrhea, Constipation, Melena, Hematochezia, Other Genitourinary: negative: Dysuria, Frequency, Incontinence, Hematuria, Retention , Other Musculoskeletal: negative: Neck Pain, Shoulder Pain, Arm Pain, Back Pain, Hand Pain, Leg Pain, Foot Pain, Other - Medications/Allergies Allergies/Adverse Reactions: Allergies Allergy/AdvReac Type Severity Reaction Status Date / Time Sulfa (Sulfonamide Allergy Verified 08/05/18 15:43 Antibiotics) Medications: Current Medications Acetaminophen (Tylenol) 1,000 mg PO Q6H PRN PRN Reason: Moderate to Severe Pain (6-10) Albuterol/Ipratropium (Duoneb) 3 ml NEB [id number] [facility] Last Admin: 08/25/18 06:10 Dose: 3 ml Artificial Tears (Tears Renewed 15ml Bottle) 2 drop EA EYE PRN PRN PRN Reason: Dry Eyes Clopidogrel Bisulfate (Plavix) 75 mg PO DAILY [facility] Last Admin: 08/25/18 08:35 Dose: 75 mg Digoxin (Lanoxin) 0.125 mg PO DAILY [facility] Last Admin: 08/25/18 08:33 Dose: 0.125 mg Enoxaparin Sodium (Lovenox) 40 mg SC 0900 [facility] Last Admin: 08/25/18 08:32 Dose: 40 mg Famotidine (Pepcid) 20 mg PO BID [facility] Last Admin: 08/25/18 08:35 Dose: 20 mg Hydralazine HCl (Apresoline) 10 mg SLOW IVP Q4H PRN PRN Reason: SBP > 180 and HR < 70 Meropenem 2 gm/ Miscellaneous Medication 1 each/ Sodium Chloride 100 mls @ 0 mls/hr IVPB 0800,1600,[id number] [facility] Last Admin: 08/25/18 08:32 Dose: 100 mls Ibuprofen (Motrin) 600 mg PO Q6H PRN PRN Reason: Pain Latanoprost (Xalatan 0.005% Ophth Soln) 1 drop EA EYE HS [facility] Last Admin: 08/24/18 20:26 Dose: 1 drp Lovastatin (Mevacor) 20 mg PO HS [facility] Last Admin: 08/24/18 20:26 Dose: 20 mg Discontinue Previous Narcotic Pain Medications And Benzodiazepines 1 each FS .ONE [facility] Stop: 09/05/18 22:27 Ccu Electrolyte (Replacement Protocol) 0 each FS PRN PRN PRN Reason: FOR ELECTROLYTE REPLACEMENT Potassium Chloride (Klor-Con) 20 meq PO QAM-WM [facility] Last Admin: 08/25/18 08:32 Dose: 20 meq Sertraline HCl (Zoloft) 50 mg PO DAILY [facility] Last Admin: 08/25/18 08:35 Dose: 50 mg Sodium Chloride (Flush - Normal Saline) 10 ml IVF Q12HR [facility] Last Admin: 08/25/18 08:36 Dose: 10 ml Sodium Chloride (Flush - Normal Saline) 10 ml IVF PRN PRN PRN Reason: Saline Flush Last Admin: 08/14/18 07:30 Dose: 10 ml Sodium Chloride ([place] Nasal [place] 0.65%) 0 ml EA NARE QIDPRN PRN PRN Reason: Nasal Congestion Timolol Maleate (Timoptic 0.5% Ophth Soln) 1 drop EA EYE BID [facility] Last Admin: 08/25/18 08:32 Dose: 1 drp Tramadol HCl (Ultram) 50 mg PO Q6H PRN PRN Reason: Moderate Pain (4-6) Last Admin: 08/20/18 14:08 Dose: 50 mg Tramadol HCl (Ultram) 100 mg PO Q6H PRN PRN Reason: Severe Pain (7-10) Last Admin: 08/23/18 08:43 Dose: 100 mg
--- NOTE | 2018-08-25 12:28 | PRG ---
DATE OF SERVICE: 08/25/2018 SUBJECTIVE: Dee Monroy is doing well today. She is not eating very much, but she is taking Ensure between meals. Her abdominal wound was viewed with Wound Care today. Midline wound is granulating, although not rapidly. Her left flank wounds are extensive, but healing. There is no indication for debridement. Wound VAC was replaced. She is making stool in her colostomy. GI function is good. She has no complaints. Mcfarlane catheter is present. We would like to remove that soon. OBJECTIVE: VITAL SIGNS: 97.8 degrees, 91, and 108/60. LUNGS: Clear to auscultation. CARDIAC: Regular rate and rhythm without murmur or gallop. ABDOMEN: Soft and nontender. LABORATORY DATA: Laboratories, none today. ASSESSMENT AND PLAN: 1. Deconditioning. Continue rehab. Transfer to rehab tomorrow. 2. Malnourishment and weight loss preoperatively. The patient needs calories for wound healing. Continue caloric supplementation between meals and encourage eating meals. 3. Open wound in abdomen, left flank. Continue wound care and wound VAC. 4. Colostomy status. 5. Plan to discontinue her IV antibiotics at the time of discharge tomorrow. Change her oral antibiotics for a week. Job ID: [id number]
[2018-08-25] MEDS: Lovastatin 20 MG TAB PO SCH (21:10)
[2018-08-25] MEDS: Latanoprost 0.005% Ophth Soln 2.5 ml Bottle EA EYE SCH (21:10)
[2018-08-25] MEDS: Amoxicillin/Potassium Clav 500 MG TAB PO SCH (21:10)
[2018-08-26] MEDS: Clopidogrel Bisulfate 75 MG TAB PO SCH (09:13)
[2018-08-26] MEDS: Famotidine 20 MG TAB PO SCH (09:13)
[2018-08-26] MEDS: Timolol 0.5% Ophth Soln 5 ml Bottle EA EYE SCH (09:14)
[2018-08-26] MEDS: Digoxin 0.125 MG TAB PO SCH (09:14)
[2018-08-26] MEDS: Amoxicillin/Potassium Clav 500 MG TAB PO SCH (09:14)
[2018-08-26] MEDS: Enoxaparin Sodium 40 MG/0.4 ML SYRINGE SC SCH (09:15)
--- NOTE | 2018-08-26 09:27 | PDOC.PN ---
- Subjective Encounter Start Date: 08/26/18 Encounter Start Time: 07:00 Patient seen and examined. No new complaints. No overnight events - Objective Resuscitation Status - Order Detail: 08/05/18 13:01 Resuscitation Status Routine Resuscitation Status: FULL: Full Resuscitation MAR Reviewed: Yes Vital Signs & Weight: Vital Signs (12 hours) Temp Pulse Resp BP BP Pulse Ox 08/26/18 09:14 97 123/70 08/26/18 08:16 98.3 F 97 15 123/70 98 08/26/18 06:56 110 H 18 08/26/18 03:48 97.7 F 99 17 114/64 93 L 08/26/18 00:18 97 18 96 08/26/18 00:17 97.4 F L 96 18 117/67 93 L Weight Admit Weight 155 lb 14.4 oz Weight 166 lb 4.8 oz Most Recent Monitor Data Heart Rate from ECG 105 NIBP 151/83 NIBP BP-Mean 105 Respiration from ECG 31 SpO2 100 I&O: 08/25/18 08/26/18 08/27/18 06:59 06:59 06:59 Intake Total 1535 240 Output Total 1335 75 Balance 200 165 Result Diagrams: 08/24/18 06:50 08/24/18 06:50 Phys Exam - Physical Examination Constitutional: NAD HEENT: PERRLA, moist MMs, sclera anicteric Neck: no JVD, supple Respiratory: no wheezing, no rales, no rhonchi Cardiovascular: RRR, no significant murmur, no rub Gastrointestinal: soft, non-tender, no distention, positive bowel sounds colostomy+, wound vac+ Musculoskeletal: no edema, pulses present Neurological: non-focal, normal sensation Lymphatic: no nodes Psychiatric: normal affect Skin: no rash, normal turgor Dx/Plan (1) Diverticulitis of colon with perforation Code(s): K57.20 - DVTRCLI OF LG INT W PERFORATION AND ABSCESS W/O BLEEDING Status: Acute (2) Necrotizing fasciitis Code(s): M72.6 - NECROTIZING FASCIITIS Status: Acute Comment: left flank, s/ p I & D, (3) S/P laparotomy Status: Acute Comment: for perforated colon now with colostomy, wound closed with wound vac (4) S/P colostomy Code(s): Z93.3 - COLOSTOMY STATUS Status: Acute (5) Acute respiratory failure Code(s): J96.00 - ACUTE RESPIRATORY FAILURE, UNSP W HYPOXIA OR HYPERCAPNIA Status: Acute Qualifiers: Respiratory failure complication: hypoxia Qualified Code(s): J96.01 - Acute respiratory failure with hypoxia (6) S/P chest tube placement Code(s): Z93.8 - OTHER ARTIFICIAL OPENING STATUS Status: Resolved Comment: for air in mediastinum and chest (7) Community acquired bacterial pneumonia Code(s): J15.9 - UNSPECIFIED BACTERIAL PNEUMONIA Status: Acute (8) Demand ischemia of myocardium Code(s): I24.8 - OTHER FORMS OF ACUTE ISCHEMIC HEART DISEASE Status: Acute (9) Encephalopathy in sepsis Code(s): G93.41 - METABOLIC ENCEPHALOPATHY Status: Resolved Comment: as well as due to metabolic factors (10) High anion gap metabolic acidosis Code(s): E87.2 - ACIDOSIS Status: Resolved (11) Lactic acidosis Code(s): E87.2 - ACIDOSIS Status: Resolved (12) Sepsis associated hypotension Code(s): A41.9 - SEPSIS, UNSPECIFIED ORGANISM; I95.9 - HYPOTENSION, UNSPECIFIED Status: Resolved (13) Sepsis with acute organ dysfunction Code(s): A41.9 - SEPSIS, UNSPECIFIED ORGANISM; R65.20 - SEVERE SEPSIS WITHOUT SEPTIC SHOCK Status: Acute (14) UTI (urinary tract infection) Status: Acute (15) Anemia of chronic disease Code(s): D63.8 - ANEMIA IN OTHER CHRONIC DISEASES CLASSIFIED ELSEWHERE Status : Chronic Comment: with microcytosis (16) Anxiety and depression Code(s): F41.9 - ANXIETY DISORDER, UNSPECIFIED; F32.9 - MAJOR DEPRESSIVE DISORDER, SINGLE EPISODE, UNSPECIFIED Status: Chronic (17) Dyslipidemia Code(s): E78.5 - HYPERLIPIDEMIA, UNSPECIFIED Status: Chronic (18) Abnormal blood electrolyte level Code(s): E87.8 - OTH DISORDERS OF ELECTROLYTE AND FLUID BALANCE, NEC Status: Acute (19) Physical deconditioning Code(s): R53.81 - OTHER MALAISE Status: Acute - Plan 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 Review of Systems - Review of Systems ENT: negative: Ear Pain, Ear Discharge, Nose Pain, Nose Discharge, Nose Congestion, Mouth Pain, Mouth Swelling, Throat Pain, Throat Swelling, Other Respiratory: negative: Cough, Dry, Shortness of Breath, Hemoptysis, SOB with Excertion, Pleuritic Pain, Sputum, Wheezing Cardiovascular: negative: chest pain, palpitations, orthopnea, paroxysmal nocturnal dyspnea, edema, light headedness, other Gastrointestinal: negative: Nausea, Vomiting, Abdominal Pain, Diarrhea, Constipation, Melena, Hematochezia, Other Genitourinary: negative: Dysuria, Frequency, Incontinence, Hematuria, Retention , Other Musculoskeletal: negative: Neck Pain, Shoulder Pain, Arm Pain, Back Pain, Hand Pain, Leg Pain, Foot Pain, Other - Medications/Allergies Allergies/Adverse Reactions: Allergies Allergy/AdvReac Type Severity Reaction Status Date / Time Sulfa (Sulfonamide Allergy Verified 08/05/18 15:43 Antibiotics) Medications: Current Medications Acetaminophen (Tylenol) 1,000 mg PO Q6H PRN PRN Reason: Moderate to Severe Pain (6-10) Albuterol/Ipratropium (Duoneb) 3 ml NEB [id number] [facility] Last Admin: 08/26/18 06:56 Dose: 3 ml Amoxicillin/Clavulanate Potassium (Augmentin) 500 mg PO Q12HR [facility] Stop: 09/02/18 12:00 Last Admin: 08/26/18 09:14 Dose: 500 mg Artificial Tears (Tears Renewed 15ml Bottle) 2 drop EA EYE PRN PRN PRN Reason: Dry Eyes Clopidogrel Bisulfate (Plavix) 75 mg PO DAILY [facility] Last Admin: 08/26/18 09:13 Dose: 75 mg Digoxin (Lanoxin) 0.125 mg PO DAILY [facility] Last Admin: 08/26/18 09:14 Dose: 0.125 mg Enoxaparin Sodium (Lovenox) 40 mg SC 0900 [facility] Last Admin: 08/26/18 09:15 Dose: 40 mg Famotidine (Pepcid) 20 mg PO BID [facility] Last Admin: 08/26/18 09:13 Dose: 20 mg Hydralazine HCl (Apresoline) 10 mg SLOW IVP Q4H PRN PRN Reason: SBP > 180 and HR < 70 Ibuprofen (Motrin) 600 mg PO Q6H PRN PRN Reason: Pain Latanoprost (Xalatan 0.005% Ophth Soln) 1 drop EA EYE HS [facility] Last Admin: 08/25/18 21:10 Dose: 1 drp Lovastatin (Mevacor) 20 mg PO HS [facility] Last Admin: 08/25/18 21:10 Dose: 20 mg Discontinue Previous Narcotic Pain Medications And Benzodiazepines 1 each FS .ONE [facility] Stop: 09/05/18 22:27 Ccu Electrolyte (Replacement Protocol) 0 each FS PRN PRN PRN Reason: FOR ELECTROLYTE REPLACEMENT Potassium Chloride (Klor-Con) 20 meq PO QAM-WM [facility] Last Admin: 08/26/18 09:13 Dose: 20 meq Sertraline HCl (Zoloft) 50 mg PO DAILY [facility] Last Admin: 08/26/18 09:14 Dose: 50 mg Sodium Chloride (Flush - Normal Saline) 10 ml IVF Q12HR [facility] Last Admin: 08/26/18 09:25 Dose: 10 ml Sodium Chloride (Flush - Normal Saline) 10 ml IVF PRN PRN PRN Reason: Saline Flush Last Admin: 08/14/18 07:30 Dose: 10 ml Sodium Chloride ([place] Nasal [place] 0.65%) 0 ml EA NARE QIDPRN PRN PRN Reason: Nasal Congestion Timolol Maleate (Timoptic 0.5% Ophth Soln) 1 drop EA EYE BID [facility] Last Admin: 08/26/18 09:14 Dose: 1 drp Tramadol HCl (Ultram) 50 mg PO Q6H PRN PRN Reason: Moderate Pain (4-6) Last Admin: 08/20/18 14:08 Dose: 50 mg Tramadol HCl (Ultram) 100 mg PO Q6H PRN PRN Reason: Severe Pain (7-10) Last Admin: 08/23/18 08:43 Dose: 100 mg
--- NOTE | 2018-08-26 09:31 | PRG ---
DATE OF SERVICE: 08/26/2018 SUBJECTIVE: Dee Moffett looks much better this morning even though her chest x-ray shows extensive right-sided pneumonia. OBJECTIVE: VITAL SIGNS: Saturations are 98% on 1 L, temperature 98, pulse 97, blood pressure 120/70. CHEST: Decreased breath sounds. No wheezing. CARDIAC: Normal S1, S2. No gallops. ABDOMEN: No masses. IMPRESSION: 1. Status post laparotomy. 2. Extensive intraabdominal abscesses with left-sided pleural effusion. 3. Respiratory failure, acute respiratory distress syndrome with diastolic dysfunction. PLAN: Open wound of the abdomen and flank with an IVAC in place. Antibiotic is being continued. They are probably trying to get her to an LTAC. We will see. Require aggressive PT, nutrition, supportive care. Job ID: [id number]
[2018-08-26 11:56] VITALS: TEMP 97.7
--- NOTE | 2018-08-26 14:58 | PRG ---
DATE OF SERVICE: 08/26/2018 SUBJECTIVE: The patient is doing well today. She is alert. She is still not eating much, perhaps 1/3 of her meals and taking Ensure supplements between. OBJECTIVE: VITAL SIGNS: Temperature 97 degrees, heart rate 110, blood pressure 116/71. LUNGS: Clear to auscultation. CARDIAC: Regular rate and rhythm. No murmur or gallop. ABDOMEN: Soft, nontender. EXTREMITIES: Unremarkable. LABORATORY DATA: White count 13 and hemoglobin 11.6. Basic metabolic profile normal. Chest x-ray yesterday, improving. ASSESSMENT/PLAN: 1. Severe malnutrition, preoperative weight loss prior to this hospitalization. Encouraged p.o. intake, proper protein supplements for wound healing. 2. Open wounds, left flank. Continue VAC wound care. 3. Midline wound open. Continue VAC wound care. 4. Colostomy status with a Kiesha pouch marked with a 2-0 Prolene. The colostomy can be reversed in the future at that time when her performance status and nutritional status improves in 3 to 6 months. At this time, we will send her to [facility] anticipating if she improves, she may be able return to local rehab. Job ID: [id number]
[2018-08-26] MEDS ORDERED: Sodium Chloride 0.9% 10 ML ONE (15:02)
--- NOTE | 2018-08-26 15:57 | DIS ---
DATE OF ADMISSION: 08/05/2018 DATE OF DISCHARGE: 08/26/2018 DISPOSITION: Transferred to [facility] on 08/26/2018. DISCHARGE DIAGNOSES: 1. Sepsis. 2. Necrotizing fasciitis. 3. 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 Cultures negative. 4. Atelectasis. 5. Arterial sclerosis. 6. Respiratory failure. 7. Severe deconditioning. 8. Malnutrition. 9. Acute kidney injury, resolved (BUN on admission 28, transfer 16. Creatinine on admission 0.79, on discharge less than 0.4. Albumin 1). CONSULTANTS THIS HOSPITALIZATION: 1. Admission hospitalist consultation, Dr. Elias, General Surgery. 2. Dr. Clark, Critical Care and Pulmonary Medicine. 3. Cardiology, Dr. Georges, for indeterminate troponin level thought secondary to sepsis. Preexisting carotid artery disease, on Plavix. PROCEDURES THIS HOSPITALIZATION: On admission, CAT scan of the brain, chronic white matter disease. CAT scan of the chest, abdomen, and pelvis on 08/06/2018. Central line placement for poor IV access. Echocardiogram on 08/06/2018, read by Dr. Georges, 60% to 65% cardiac ejection fraction, mildly dilated left atrium, left ventricular normal, aortic valve leaflets thickened, mild mitral regurgitation, [id number] tricuspid regurgitation. Pathology of colon resection; left acute on chronic diverticulitis with ulceration and perforation. No malignancy. SURGERIES: On 08/06/2018, right subclavian vein triple-lumen catheter. On 08/06/2018; exploratory laparotomy, mobilization of splenic flexure, resection of the descending sigmoid colon. Kiesha pouch marked with 2-0 Prolene. Colostomy not performed at this operation. Abdominal washout. Drainage of extensive retroperitoneal abscess extending from the thoracic spine and diaphragm to the pelvis. Open abdomen with ABThera, with plans for reexploration in the next 48 hours. Retroperitoneal washout. Drainage of retroperitoneum. Left tube thoracostomy, 36-Yemeni, cloudy tannish fluid drainage. Debridement of skin, subcutaneous tissue, fascia, and muscle of left flank for necrotizing fasciitis due to the diverticulitis. Skin and subcutaneous tissues left open. On 08/08/2018, returned to the operating room for exploratory laparotomy, abdominal washout, pulse irrigation of the retroperitoneum with 5 L of fluid, placement of another right lower quadrant SRAVAN drain into the left retroperitoneum, debridement of fatty tissues of the retroperitoneum, end colostomy, definitive closure of the abdominal wall with removal of the ABThera and skin and subcutaneous tissues were loosely approximated in the midline and otherwise left open healing by second intention with a wound VAC application. On 08/10/2018, Dr. Perez did bronchoscopy and mechanical ventilation. MEDICATIONS: Prehospitalization medications: 1. Latanoprost PF 0.005% eye drops 7.5 mL . 2. Timolol malleate 0.5% ophthalmic solution one drop each eye b.i.d. 3. Sertraline 50 mg a day. 4. Ranitidine 150 mg b.i.d. 5. Lovastatin 20 mg at h.s. 6. Plavix 75 mg a day. 7. Aspirin 81 mg a day. 8. DuoNeb as needed. 9. Digoxin 0.125 mg a day. Transfer medications: 1. P.r.n. tramadol for pain. No narcotics have been given. 2. Continue home medications as listed above. 3. Ibuprofen 400 to 600 mg p.o. q.i.d. p.r.n. pain. 4. Tylenol 1000 mg p.o. q.i.d. p.r.n. pain. 5. Ultram p.r.n. pain. 6. Augmentin 500 p.o. q.12 hours for a week. 7. DuoNebs p.r.n. PHYSICAL THERAPY: Severely deconditioned, not yet independently ambulating, up in a chair with nursing 2 to 3 times a day, strengthening and conditioning with Physical Therapy. NUTRITION: She was on TPN that was discontinued. She is now on high protein supplements between meals and a regular diet, high-protein. HISTORY: The patient experienced weight loss of 20 pounds prior to presenting due to chronic abdominal pain. She presented to the emergency room, evaluated there with a CAT scan of the brain and chest x-ray and labs for mental status changes, organ dysfunction, acute kidney injury, and was felt to be pneumonia. Family knows that she had been becoming progressively less alert and more lethargic. She denied cough or fever. The patient initially was evaluated in the emergency room. A stroke alert was initiated. CAT scan of the brain was normal. She was noted to be having leukocytosis with a bandemia and elevated troponin and lactic acidosis and hyponatremia. The patient was admitted to the ICU as her abdominal exam was essentially unremarkable. She had had a past history of cholecystectomy and tonsillectomy and past history of anxiety and depression. She did also have a past history of GERD, dyslipidemia, diastolic dysfunction, and urinary incontinence. The patient admitted after cultures and antibiotics. Surgery was consulted for IV access and a central line was placed and further discussion with the nurse reported progressive redness and edema over the left flank. CAT scan of the chest, abdomen, and pelvis obtained revealing the left pleural effusion, atelectasis, infiltrates, . Surgery was reconsulted and took her to the operating room for the above-described operations. The initial finding was that of a diverticulitis fistula extending into the abdominal wall dissecting into the retroperitoneum with gas and feculent material in the retroperitoneum as well as extension to the soft tissues of the left flank and the left flank abdominal wall musculature to the iliac crest. The patient underwent the initial operation described. It was felt that she should have an open abdomen and the retroperitoneum irrigated again in 24 to 48 hours after stabilization and the colon had been removed, but end of the colon left stapled off. She was returned to the operating room subsequently, washout of the retroperitoneum, placement of more drains, further debridement of the left flank and formation of a colostomy, definitive closure of the fascia of abdomen with skin and subcutaneous tissues left open and VAC applied. The patient continued on the ventilator and followed by Pulmonary Medicine and her sepsis resolved and acute kidney injury improved with hydration and resolved. She continued antibiotics and eventually was extubated. She was observed in the ICU and then transferred to the floor. Physical Therapy and Occupational Therapy, and Dietary saw her and she was converted from TPN to an oral diet and IV antibiotics converted to Augmentin. Multiple cultures of abdominal wounds revealed E coli, Streptococcus, anaerobic Bacteroides, Campylobacter; yeast grew from her bronchial washings; and Nae albicans from her sputum aspirate. Urine cultures negative. Blood cultures negative. The patient's white count fell from on admission of 39,000 to discharge of 11,000 to 13,000. The left tube thoracostomy was left in place until she was extubated and then the tube removed. The pleural fluid cultures remained negative. Chest x-ray is improving by the time of discharge. The patient was transferred to [facility] for further conditioning. She is to continue the Augmentin for another 5 to 7 days. She will need a wound VAC for her left retroperitoneal open wound and her midline wound. The midline wound is healing, but she needs aggressive nutritional support. Dobbhoff feeding tube has been considered, but not yet placed as she seems to be eating more day-to-day. For DVT prophylaxis, continues with Lovenox. Job ID: [id number]
[2018-08-26 16:09] VITALS: BP 114/78
[2018-08-26] MEDS ORDERED: Latanoprost 0.005% Ophth Soln 2.5 ml Bottle EA EYE SCH (21:00)
--- NOTE | 2018-08-27 10:47 | DIS ---
DATE OF ADMISSION: 08/05/2018 DATE OF DISCHARGE: 08/26/2018 Please see discharge summary dictated by Dr. Elias for further details. This patient was admitted under Medicine Service. She was septic on admission. She had septic shock. She required central line placement and subsequently, the patient was also found with some necrotizing fasciitis on the left side of the abdominal wall and that is why we obtained CT abdomen and pelvis which showed acute abdomen type of picture. The patient was also having significant air in the left side of abdominal wall as well as in the thoracic area and that is why we did CT chest, abdomen, and pelvis. We consulted Dr. Elias for central line placement and after that, he also did major surgery. Postoperatively, patient remained on ventilator. She had open abdomen and subsequently, she had a colostomy placement. She required wound VAC over mid abdomen as well as lateral abdominal wall wound. She remained on intubated status. The patient developed respiratory distress and ARDS with right-sided pneumonia, required broad-spectrum antibiotic therapy as well as antifungal therapy. The patient was eventuality extubated and being in the hospital and critical illness, patient had significant critical illness myopathy and that is why patient required placement. The patient was planned for discharge to rehabilitation. During this admission, septic shock resolved. A chest tube was placed for air in the thoracic area that was also removed and lactic acidosis resolved, anion gap acidosis resolved, encephalopathy was resolved. She had laparotomy and colostomy placement. She had respiratory failure and intubation, which was extubated afterward. The patient also had significant abnormal electrolytes that was also corrected. Please see Dr. Elias's discharge summary for further information. DISCHARGE MEDICATIONS: 1. Aspirin 81 mg daily. 2. Plavix 75 mg daily. 3. Xalatan eye drops bedtime. 4. Lovastatin 20 mg at bedtime. 5. Ranitidine 150 mg b.i.d. 6. Zoloft 50 mg daily. 7. Timolol ophthalmic drops b.i.d. 8. Augmentin 500 mg p.o. b.i.d. for 7-10 days. 9. Digoxin 0.125 mg p.o. daily. 10. Lovenox 40 mg subcu daily for DVT prophylaxis. 11. Pepcid 20 mg p.o. b.i.d. 12. Tylenol p.r.n. basis. 13. Motrin p.r.n. basis. 14. DuoNeb q.6 hourly p.r.n. basis. 15. Tramadol p.r.n. basis for pain. Overall, the patient is medically stable for discharge to rehab. She is at high risk for recurrent admission. Job ID: [id number]
== END 2018-08-26 17:05 | DRG 853 ==
LOC: ERS 09:32 → IMCU/EMU 14:54 → SURG A 08-06 20:30 → CCU 08-06 22:24 → SURG A 08-20 11:43
PROVIDERS: ADMIT Internal Medicine; ATTEND Internal Medicine
PROC: 0DBN0ZZ Excision of Sigmoid Colon, Open Approach (ICD-10-PCS; principal; 2018-08-06)
PROC: 0KBL0ZZ Excision of Left Abdomen Muscle, Open Approach (ICD-10-PCS; 2018-08-06)
PROC: 0W9G0ZZ Drainage of Peritoneal Cavity, Open Approach (ICD-10-PCS; 2018-08-06)
PROC: 0W9B30Z Drainage of Left Pleural Cavity with Drainage Device, Percutaneous Approach (ICD-10-PCS; 2018-08-06)
PROC: 2W13X6Z Compression of Abdominal Wall using Pressure Dressing (ICD-10-PCS; 2018-08-06)
PROC: 02H633Z Insertion of Infusion Device into Right Atrium, Percutaneous Approach (ICD-10-PCS; 2018-08-06)
PROC: 30243N1 Transfusion of Nonautologous Red Blood Cells into Central Vein, Percutaneous Approach (ICD-10-PCS; 2018-08-06)
PROC: 5A1955Z Respiratory Ventilation, Greater than 96 Consecutive Hours (ICD-10-PCS; 2018-08-06)
PROC: 0D1M0Z4 Bypass Descending Colon to Cutaneous, Open Approach (ICD-10-PCS; 2018-08-08)
PROC: 0JB80ZZ Excision of Abdomen Subcutaneous Tissue and Fascia, Open Approach (ICD-10-PCS; 2018-08-08)
PROC: 0B9D8ZX Drainage of Right Middle Lung Lobe, Via Natural or Artificial Opening Endoscopic, Diagnostic (ICD-10-PCS; 2018-08-10)
PROC: 0HD7XZZ Extraction of Abdomen Skin, External Approach (ICD-10-PCS; 2018-08-16)
DX: A41.9 Sepsis, unspecified organism (principal); M72.6 Necrotizing fasciitis; G93.41 Metabolic encephalopathy; J15.9 Unspecified bacterial pneumonia; E43 Unspecified severe protein-calorie malnutrition; J80 Acute respiratory distress syndrome; R65.21 Severe sepsis with septic shock; N39.0 Urinary tract infection, site not specified; E87.2 Acidosis; E87.1 Hypo-osmolality and hyponatremia; I24.8 Other forms of acute ischemic heart disease; K57.20 Diverticulitis of large intestine with perforation and abscess without bleeding; N17.9 Acute kidney failure, unspecified; B37.89 Other sites of candidiasis; G72.81 Critical illness myopathy; I50.30 Unspecified diastolic (congestive) heart failure; B96.20 Unspecified Escherichia coli [E. coli] as the cause of diseases classified elsewhere; B95.5 Unspecified streptococcus as the cause of diseases classified elsewhere; B96.89 Other specified bacterial agents as the cause of diseases classified elsewhere; D63.8 Anemia in other chronic diseases classified elsewhere; I73.9 Peripheral vascular disease, unspecified; K21.9 Gastro-esophageal reflux disease without esophagitis; E87.6 Hypokalemia; E83.42 Hypomagnesemia; E78.5 Hyperlipidemia, unspecified; F41.8 Other specified anxiety disorders; Z68.29 Body mass index [BMI] 29.0-29.9, adult; Z86.73 Personal history of transient ischemic attack (TIA), and cerebral infarction without residual deficits; Z79.02 Long term (current) use of antithrombotics/antiplatelets; Z88.2 Allergy status to sulfonamides
CPT/HCPCS: 36415; 36416; 36430; 51701; 70450; 71045; 71260; 74018; 74177; 80048; 80053; 80061; 80202; 81001; 81003; 81015; 82378; 82533; 82553; 82728; 82805; 83036; 83540; 83550; 83605; 83735; 83880; 83930; 83935; 84100; 84134; 84300; 84439; 84443; 84481; 84484; 85025; 86140; 86850; 86900; 86901; 87040; 87070; 87076; 87077; 87086; 87186; 87205; 87804; 88307; 93005; 93010; 93306; 94002; 94003; 94640; 96361; 96365; 96367; A4353; C9113; J0131; J0456; J0696; J1160; J1650; J1720; J1940; J1956; J2185; J2248; J2250; J2270; J2370; J2543; J2704; J2920; J3010; J3370; J3411; J3475; J3480; J7050; J7620; J7626; P9016; P9045; P9047; Q9967